=== PATIENT | female | born 1975 | race Caucasian/White ===

== ENCOUNTER 2017-06-16 18:53 | Inpatient (IN) | payer MEDICARE, OTHER ==
[~2017-06-16] VITALS: Ht 149.9 cm; Wt 121.7 kg
[~2017-06-16 18:53] MED LIST: ADVA100A; ALBU17I; DILT60TA; GLIP5; NOVORP2; Z.0.BCPILL
[2017-06-16 19:30] VITALS: BP 106/56; PULSE 72; RESP 20; TEMP 97.2; O2SAT 98
--- NOTE | 2017-06-16 20:44 | PD ---
HPI Chief Complaint: Psychiatric Symptoms Time Seen by Provider: 20:35 Travel History International Travel<30 days: No Contact w/Intl Traveler<30days: No Traveled to known affect area: No History of Present Illness HPI This is a 42-year-old female resident of [facility], on 3 L nasal cannula at home. She presents under García act initiated by a psychiatrist. According to her paperwork the patient has a history of bipolar disorder, depression, anxiety, "during initial evaluation she states she hears voices that tell her to cut her wrists. She states multiple prior attempts and hospitalizations (inpatient psychiatry) she has planned, intent, and possible [place] means of sharp objects or sober." The patient admits that today she's been feeling increasingly suicidal and she has been having auditory hallucinations. Specifically she has thoughts of cutting her wrists. She denies any drug or alcohol use. She reports that she has been compliant with all medications. She has no medical complaints at this time. PFSH Past Medical History Asthma: Yes Anxiety: Yes Cardiovascular Problems: Yes (CHF) COPD: Yes Coronary Artery Disease: Yes Diabetes: Yes (type 2) Patient Takes Glucophage: No Diminished Hearing: No Hypertension: Yes Reproductive: Yes (POLY-CYSTIC OVARIAN DISEASE; NO PERIOD FOR MONTHS, ON BCPS) ?: Unknown Past Surgical History Eye Surgery: Yes (left eye surgery for lazy eye ) Tonsillectomy: Yes Social History Alcohol Use: No Tobacco Use: No Substance Use: No Allergies-Medications (Allergen,Severity, Reaction): Coded Allergies: meperidine (Unverified Allergy, Severe, 03/25/17) [place] [facility] Dust (Unverified Allergy, Intermediate, Sneezing, 06/16/17) NSAIDS (Non-Steroidal Anti-Inflamma (Unverified Adverse Reaction, Intermediate, Hives, 06/16/17) aspirin (Unverified Adverse Reaction, Intermediate, Hives, 06/16/17) ciprofloxacin (Unverified Adverse Reaction, Intermediate, Hives, 06/16/17) Reported Meds & Prescriptions Reported Meds & Active Scripts Active Reported Ziprasidone 80 Mg Cap 80 Mg PO BID Symbicort Inh (Budesonide/Formoterol Fumarate) 80-4.5 Mcg/Act Aero 2 Puff INH Q12HR Sucralfate 1 Gram Tab 1 Gm PO QID on empty stomach Rosuvastatin (Rosuvastatin Calcium) 5 Mg Tab 5 Mg PO HS Xarelto (Rivaroxaban) 20 Mg Tab 20 Mg PO DAILY Pepcid (Famotidine) 20 Mg Tab 20 Mg PO BID Paxil (Paroxetine HCl) 30 Mg Tab 40 Mg PO DAILY Nitroglycerin SL (Nitroglycerin) 0.4 Mg Subl 0.4 Mg SL DIRECTED PRN ONE TABLET UNDER THE TONGUE NEEDED FOR CHEST PAIN, MAY REPEAT EVERY FIVE MINUTES FOR A TOTAL OF 3 DOSES OR CALL 911 IF NO RELIEF Milk of Magnesia Liq (Magnesium Hydroxide) 400 Mg/5 Ml Susp 60 Ml PO DAILY PRN Metoprolol Tartrate 50 Mg Tab 50 Mg PO TID Lantus Inj (Insulin Glargine) 1,000 Unit/10 Ml Vial 10 Units SQ BID Klonopin (Clonazepam) 0.5 Mg Tab 0.5 Mg PO BID Hydrocodone-Acetaminophen 5-325 mg Tab 1 Tab PO Q4H PRN Ferrousul (Ferrous Sulfate) 325 Mg (65 Mg Iron) Tab Tab PO DAILY Enema Disposable (Sodium Phosphates) 19 Gram-7 Gram/118 Ml Rin Dulcolax Supp (Bisacodyl) 10 Mg Supp 10 Mg RECTAL DAILY PRN Bumetanide 1 Mg Tab 1 Mg PO DAILY Sm Womans Laxative (Bisacodyl) 5 Mg Tab 10 Mg PO Review of Systems Except as stated in HPI: all other systems reviewed are Neg Physical Exam Narrative GENERAL: This is an obese female who is in no acute distress. She appears older than her stated age. SKIN: Warm and dry. HEAD: Atraumatic. Normocephalic. EYES: Pupils equal and round. No scleral icterus. No injection or drainage. ENT: No nasal bleeding or discharge. Mucous membranes pink and moist. NECK: Trachea midline. No JVD. CARDIOVASCULAR: Regular rate and rhythm. No murmur appreciated. RESPIRATORY: No accessory muscle use. Clear to auscultation. Breath sounds equal bilaterally. GASTROINTESTINAL: Abdomen soft, non-tender, nondistended. Hepatic and splenic margins not palpable. MUSCULOSKELETAL: No obvious deformities. No clubbing. No cyanosis. No edema. NEUROLOGICAL: Awake and alert. No obvious cranial nerve deficits. Motor grossly within normal limits. Normal speech. PSYCHIATRIC: Flat affect. Insight and judgment appear limited. Data Data Last Documented VS Vital Signs Date Time Temp Pulse Resp B/P (MAP) Pulse Ox O2 Delivery O2 Flow Rate FiO2 06/17/17 07:33 107 06/17/17 07:33 19 139/76 (97) 97 Nasal Cannula 3.00 06/16/17 20:48 98.0 Orders Orders Complete Blood Count With Diff (06/16/17 20:40) Comprehensive Metabolic Panel (06/16/17 20:40) Psych Screen (06/16/17 20:40) Drug Screen, Random Urine (06/16/17 20:40) Alcohol (Ethanol) (06/16/17 20:40) Salicylates (Aspirin) (06/16/17 20:40) Tylenol (Acetaminophen) (06/16/17 20:40) Insulin Human Regular Inj (Novolin R Inj (06/16/17 22:45) Insulin Human Regular Inj (Novolin R Inj (06/16/17 23:00) Diet Regular Basic (06/17/17 Breakfast) Labs Laboratory Tests Test 06/16/17 21:15 06/16/17 23:30 White Blood Count 6.3 TH/MM3 Red Blood Count 3.87 MIL/MM3 Hemoglobin 12.6 GM/DL Hematocrit 37.3 % Mean Corpuscular Volume 96.3 FL Mean Corpuscular Hemoglobin 32.6 PG Mean Corpuscular Hemoglobin Concent 33.9 % Red Cell Distribution Width 13.9 % Platelet Count 233 TH/MM3 Mean Platelet Volume 7.0 FL Neutrophils (%) (Auto) 63.8 % Lymphocytes (%) (Auto) 27.3 % Monocytes (%) (Auto) 7.6 % Eosinophils (%) (Auto) 0.7 % Basophils (%) (Auto) 0.6 % Neutrophils # (Auto) 4.0 TH/MM3 Lymphocytes # (Auto) 1.7 TH/MM3 Monocytes # (Auto) 0.5 TH/MM3 Eosinophils # (Auto) 0.0 TH/MM3 Basophils # (Auto) 0.0 TH/MM3 CBC Comment DIFF FINAL Differential Comment Blood Urea Nitrogen 14 MG/DL Creatinine 0.85 MG/DL Random Glucose 319 MG/DL Total Protein 7.5 GM/DL Albumin 3.3 GM/DL Calcium Level 8.8 MG/DL Alkaline Phosphatase 124 U/L Aspartate Amino Transf (AST/SGOT) 25 U/L Alanine Aminotransferase (ALT/SGPT) 55 U/L Total Bilirubin 0.2 MG/DL Sodium Level 134 MEQ/L Potassium Level 3.8 MEQ/L Chloride Level 94 MEQ/L Carbon Dioxide Level 32.7 MEQ/L Anion Gap 7 MEQ/L Estimat Glomerular Filtration Rate 74 ML/MIN Salicylates Level LESS THAN 1.7 MG/DL Acetaminophen Level LESS THAN 2.0 MCG/ML Ethyl Alcohol Level LESS THAN 3 MG/DL Urine Opiates Screen NEG Urine Barbiturates Screen NEG Urine Amphetamines Screen NEG Urine Benzodiazepines Screen NEG Urine Cocaine Screen NEG Urine Cannabinoids Screen NEG MDM Medical Decision Making Medical Screen Exam Complete: Yes Emergency Medical Condition: Yes Medical Record Reviewed: Yes Differential Diagnosis Major depressive disorder, acute psychosis, schizoaffective disorder, schizophrenia, medication noncompliance Narrative Course 42-year-old female presents under García act initiated by a psychiatrist for evaluation of depression, suicidal ideation and auditory hallucination. Mental health screening discussed with the patient. Psychiatric screen ordered. Pending lab work, the patient will be medically cleared for psychiatric disposition. Diagnosis Primary Impression: Medical clearance for psychiatric admission Jean Rodriguez Jun 16, 2017 20:44
[2017-06-16 20:48] VITALS: BP 117/55; PULSE 73; RESP 18; TEMP 98; O2SAT 98
[2017-06-16 21:46] LABS: BASOPHIL % 0.6 % (0.0-2.0); EOSINOPHIL % 0.7 % (0.0-4.0); HEMATOCRIT 37.3 % (35.0-46.0); HEMO FLAGS DIFF FINAL; LYMPH % 27.3 % (9.0-44.0); LYMPHOCYTE # 1.7 TH/MM3 (1.0-4.8); MEAN CELL VOLUME 96.3 FL (80.0-100.0); MEAN CORPUSCULAR HEMOGLOBIN 32.6 PG (27.0-34.0); MEAN CORPUSCULAR HGB CONC 33.9 % (32.0-36.0); MONO % 7.6 % (0.0-8.0); NEUT % 63.8 % (16.0-70.0); PLATELET COUNT 233 TH/MM3 (150-450); RED BLOOD COUNT 3.87 MIL/MM3 (4.00-5.30); RED CELL DISTRIBUTION WIDTH 13.9 % (11.6-17.2); WHITE BLOOD COUNT 6.3 TH/MM3 (4.0-11.0)
[2017-06-16] MEDS ORDERED: ZIPR1CAP12 PO (22:04)
[2017-06-16] MEDS ORDERED: BUME1TAB PO (22:04)
[2017-06-16] MEDS ORDERED: DULC10SU3 RECTAL (22:04)
[2017-06-16] MEDS ORDERED: [UNRECOGNIZED DRUG - CODE] PO (22:04)
[2017-06-16] MEDS ORDERED: CLON.5 PO (22:04)
[2017-06-16] MEDS ORDERED: SUCR1TAB PO (22:04)
[2017-06-16] MEDS ORDERED: FAMO1TAB37 PO (22:04)
[2017-06-16] MEDS ORDERED: SYMB80AE INH (22:04)
[2017-06-16] MEDS ORDERED: METO50TA PO (22:04)
[2017-06-16] MEDS ORDERED: HYDR-3516 PO (22:04)
[2017-06-16] MEDS ORDERED: ROSU1TAB4 PO (22:04)
[2017-06-16] MEDS ORDERED: ENEMENE5 (22:04)
[2017-06-16] MEDS ORDERED: MILKSUS PO (22:04)
[2017-06-16] MEDS ORDERED: PAXI30TA7 PO (22:04)
[2017-06-16] MEDS ORDERED: FERR325T86 PO (22:04)
[2017-06-16] MEDS ORDERED: NITR1SUB3 SL (22:04)
[2017-06-16] MEDS ORDERED: LANTUS2P SQ (22:04)
[2017-06-16] MEDS ORDERED: XARE20TA PO (22:04)
[2017-06-16 22:17] LABS: ALCOHOL LESS THAN 3 MG/DL (0-5); ALT (GPT) 55 U/L (10-53); ANION GAP 7 MEQ/L (5-15); AST (GOT) 25 U/L (15-37); BICARBONATE 32.7 MEQ/L (21.0-32.0); BLOOD UREA NITROGEN 14 MG/DL (7-18); CHLORIDE 94 MEQ/L (98-107); GLOMERULAR FILTRATION RATE 74 ML/MIN (>89); POTASSIUM 3.8 MEQ/L (3.5-5.1); SODIUM (NA) 134 MEQ/L (136-145)
[2017-06-16 22:18] LABS: ALKALINE PHOSPHATASE 124 U/L (45-117); TOTAL BILIRUBIN ADULT 0.2 MG/DL (0.2-1.0)
[2017-06-16 22:23] LABS: ACETAMINOPHEN LESS THAN 2.0 MCG/ML (10.0-30.0)
[2017-06-16] MEDS ORDERED: INSULIN HUMAN REGULAR 1,000 UNITS/10 ML VIAL IV PUSH ONE (22:45)
[2017-06-16] MEDS ORDERED: INSULIN HUMAN REGULAR 1,000 UNITS/10 ML VIAL SQ ONE (23:00)
[2017-06-16 23:48] VITALS: BP 128/63; PULSE 79; RESP 18; O2SAT 96
[2017-06-17 04:58] VITALS: BP 107/53; PULSE 71; RESP 16; O2SAT 98
[2017-06-17 07:33] VITALS: BP 139/76; PULSE 107; RESP 19; O2SAT 97
[2017-06-17] MEDS ORDERED: LIDOCAINE VISCOUS 2% SOLN 15 ML UDC PO ONE (12:00)
[2017-06-17] MEDS ORDERED: ALUMINUM/MAGNESIUM/SIMETH 30 ML CUP PO ONE (12:00)
[2017-06-17] MEDS ORDERED: diphenhydrAMINE HCL 50 MG CAP PO PRN (15:00)
[2017-06-17] MEDS ORDERED: LORazepam 2 MG/ML VIAL IM PRN (15:00)
[2017-06-17] MEDS ORDERED: ALUMINUM/MAGNESIUM/SIMETH 30 ML CUP PO PRN (15:00)
[2017-06-17] MEDS ORDERED: MAGNESIUM HYDROXIDE SUSP 30 ML CUP PO PRN ×2 (15:00)
[2017-06-17] MEDS ORDERED: BISACODYL 10 MG SUPP RECTAL PRN (15:00)
[2017-06-17] MEDS ORDERED: diphenhydrAMINE HCL 50 MG/ML VIAL IM PRN (15:00)
--- NOTE | 2017-06-17 15:14 | HHI.HP ---
Provisional Diagnosis Admission Date Jun 17, 2017 at 14:56 [place]. Adjustment disorder with depressed mood Certification of Person's Competence To Provide Express and Informed Consent I have personally examined Johanna Bullock , a person being served at [facility] on, Jun 17, 2017 15:05. Express and informed consent means consent voluntarily given in writing, by a competent person, after sufficient explanation and disclosure of the subject matter involved to enable the person to make a knowing and willful decision without any element of force, fraud, deceit, duress, or other form of constraint or coercion. This person is 18 years of age or older, is not now known to be incompetent to consent to treatment with a guardian advocate, and does not have a health care surrogate or proxy currently making medical treatment decisions. I have found this person to be one of the following: [X] Competent to provide express and informed consent, as defined above, for voluntary admission to this facility and is competent to provide express and informed consent for treatment. He/she has the consistent capacity to make well reasoned, willful, and knowing decisions concerning his or her medical or mental health treatment. The person fully and consistently understands the purpose of the admission for examination/placement and is fully capable of personally exercising all rights [place] Incompetent to provide express and informed consent to voluntary admission, and this is incompetent to provide express and informed consent to treatment. The person must be transferred to involuntary status and a petition for a guardian advocate filed with the Circuit Court. [] Refusing to provide express and informed consent to voluntary admission but is competent to provide express and informed consent for treatment. The person must be discharged or transferred to involuntary status. Form shall be completed within 24 hours of a person's arrival at the receiving facility and filed in the clinical record of each person: 1. Admitted on a voluntary basis 2. Permitted to provide express and informed consent to his/her own treatment 3. Allowed to transfer from involuntary to voluntary status 4. Prior to permitting a person to consent to his or her own treatment after having been previously found incompetent to consent to treatment. History of Present Illness Capacity: Has Capacity HPI This is a 42-year-old female brought in under a García act for suicidal ideation and behavior. Apparently she is a resident at [facility], an assisted living facility. She appears to be institutionalized, a on her manner and dress. She is also wearing a nasal cannula and receives 3 L of oxygen per minute. The psychiatrist that attends to this [facility] García acted the patient. She reportedly has a history of bipolar disorder, depression and anxiety. She told the psychiatrist and staff members here at [facility] that she is hearing voices telling her to cut her wrists. She indicated the same information to this physician. She has a history of multiple prior attempts to harm herself and has been hospitalized on multiple occasions. She admits to increasing symptoms of depression, including depressed mood, anhedonia, feeling hopeless and helpless not, decreased self-esteem, social withdrawal, sleep disturbance, and suicidal ideation with plan. In fact, she states she is experiencing command auditory hallucinations telling her to kill herself. Review of Systems ROS Limitations: Clinical Condition Psychiatric: COMPLAINS OF: Depression Except as stated in HPI: all other systems reviewed are Neg Past Psych History Psychological trauma history Unknown psychological trauma but the patient has been admitted multiple times for psychiatric reasons. Violence risk - others (6 mos) Minimal to moderate Violence risk - self (6 mos) High Substance Abuse History Drugs/Alcohol past 12 months Denied toxicology screen negative. Past Family Social History Coded Allergies: meperidine (Unverified Allergy, Severe, 03/25/17) [place] [facility] Dust (Unverified Allergy, Intermediate, Sneezing, 06/16/17) NSAIDS (Non-Steroidal Anti-Inflamma (Unverified Adverse Reaction, Intermediate, Hives, 06/16/17) aspirin (Unverified Adverse Reaction, Intermediate, Hives, 06/16/17) ciprofloxacin (Unverified Adverse Reaction, Intermediate, Hives, 06/16/17) Reported Medications Ziprasidone (Ziprasidone) 80 Mg Cap, 80 MG PO BID, #60 CAP 0 Refills 06/16/17 Budesonide-Formoterol Inh (Symbicort Inh) 80-4.5 Mcg/Act Aero, 2 PUFF INH Q12HR for Asthma Management, #1 INHALER 0 Refills 06/16/17 Sucralfate (Sucralfate) 1 Gram Tab, 1 GM PO QID for Duodenal ulcer, #120 TAB 0 Refills on empty stomach 06/16/17 Rosuvastatin (Rosuvastatin) 5 Mg Tab, 5 MG PO HS for Cholesterol Management, # 30 TAB 0 Refills 06/16/17 Rivaroxaban (Xarelto) 20 Mg Tab, 20 MG PO DAILY for Blood Clot Prevention, TAB 0 Refills 06/16/17 Famotidine (Pepcid) 20 Mg Tab, 20 MG PO BID, #60 TAB 0 Refills 06/16/17 Paroxetine (Paxil) 30 Mg Tab, 40 MG PO DAILY, #30 TAB 0 Refills 06/16/17 Nitroglycerin SL (Nitroglycerin SL) 0.4 Mg Subl, 0.4 MG SL DIRECTED Y for CHEST PAIN, #100 TAB.SL 0 Refills ONE TABLET UNDER THE TONGUE NEEDED FOR CHEST PAIN, MAY REPEAT EVERY FIVE MINUTES FOR A TOTAL OF 3 DOSES OR CALL 911 IF NO RELIEF 06/16/17 Magnesium Hydroxide Liq (Milk of Magnesia Liq) 400 Mg/5 Ml Susp, 60 ML PO DAILY Y for INDIGESTION OR UPSET STOMACH, #1 BOTTLE 0 Refills 06/16/17 Metoprolol Tartrate (Metoprolol Tartrate) 50 Mg Tab, 50 MG PO TID, #30 TAB 0 Refills 06/16/17 Insulin Glargine Inj (Lantus Inj) 1,000 Unit/10 Ml Vial, 10 UNITS SQ BID for Blood Sugar Management, VIAL 0 Refills 06/16/17 Clonazepam (Klonopin) 0.5 Mg Tab, 0.5 MG PO BID, #60 TAB 0 Refills 06/16/17 Hydrocodone-Acetaminophen (Hydrocodone-Acetaminophen) 5-325 mg Tab, 1 TAB PO Q4H Y for PAIN, TAB 0 Refills 06/16/17 Ferrous Sulfate (Ferrousul) 325 Mg (65 Mg Iron) Tab, TAB PO DAILY 06/16/17 Sodium Phosphates (Enema Disposable) 19 Gram-7 Gram/118 Ml Rin 06/16/17 Bisacodyl Supp (Dulcolax Supp) 10 Mg Supp, 10 MG RECTAL DAILY Y for CONSTIPATION , #12 SUPP 0 Refills 06/16/17 Bumetanide (Bumetanide) 1 Mg Tab, 1 MG PO DAILY, #30 TAB 0 Refills 06/16/17 Bisacodyl (Sm Womans Laxative) 5 Mg Tab, 10 MG PO 06/16/17 Current Medications Medications (Trade) Dose Ordered Sig/Eliz Route Start Time Stop Time Status Last Admin (Ativan) 1 mg Q6H PRN PO 06/17/17 15:00 UNV (Ativan Inj) 1 mg Q6H PRN IM 06/17/17 15:00 UNV (Benadryl) 50 mg Q6H PRN PO 06/17/17 15:00 (Benadryl Inj) 50 mg Q6H PRN IM 06/17/17 15:00 (Tylenol) 650 mg Q4H PRN PO 06/17/17 15:00 (Mag-Al Plus Susp Liq) 30 ml Q6H PRN PO 06/17/17 15:00 (Dulcolax Supp) 10 mg DAILY PRN RECTAL 06/17/17 15:00 UNV (Symbicort 80-4.5 Mcg Inh) 2 puff Q12HR INH 06/17/17 21:00 (Bumetanide) 1 mg DAILY PO 06/18/17 09:00 UNV (KlonoPIN) 0.5 mg BID PO 06/17/17 21:00 UNV (Pepcid) 20 mg BID PO 06/17/17 21:00 (Cardale 5-325 Mg) 1 tab Q4H PRN PO 06/17/17 15:00 UNV (Lantus Inj) 10 units BID SQ 06/17/17 21:00 UNV (Milk Of Magnesia Liq) 60 ml DAILY PRN PO 06/17/17 15:00 UNV (Lopressor) 50 mg TID PO 06/17/17 18:00 UNV (Xarelto) 20 mg DAILY PO 06/18/17 09:00 UNV (Carafate) 1 gm QID PO 06/17/17 18:00 (Geodon) 80 mg BID PO 06/17/17 21:00 UNV Family Psych History Patient does not know family psychiatric history. Social History Patient unemployed and receives Social Security disability. Has COPD and uses a nasal cannula. Has resided in a adult living facility for years. Patient's Strengths (min. 2) Verbal and has access to healthcare. Physical Exam GENERAL: SKIN: Warm and dry. HEAD: Normocephalic. EYES: No scleral icterus. No injection or drainage. NECK: Supple, trachea midline. No JVD or lymphadenopathy. CARDIOVASCULAR: Regular rate and rhythm without murmurs, gallops, or rubs. RESPIRATORY: Breath sounds equal bilaterally. No accessory muscle use. GASTROINTESTINAL: Abdomen soft, non-tender, nondistended. MUSCULOSKELETAL: No cyanosis, or edema. BACK: Nontender without obvious deformity. No CVA tenderness. Vital Signs Vital Signs Date Time Temp Pulse Resp B/P (MAP) Pulse Ox O2 Delivery O2 Flow Rate FiO2 06/17/17 07:33 107 06/17/17 07:33 19 139/76 (97) 97 Nasal Cannula 3.00 06/16/17 20:48 98.0 Lab Results Test 06/16/17 21:15 06/16/17 23:30 White Blood Count 6.3 TH/MM3 Red Blood Count 3.87 MIL/MM3 Hemoglobin 12.6 GM/DL Hematocrit 37.3 % Mean Corpuscular Volume 96.3 FL Mean Corpuscular Hemoglobin 32.6 PG Mean Corpuscular Hemoglobin Concent 33.9 % Red Cell Distribution Width 13.9 % Platelet Count 233 TH/MM3 Mean Platelet Volume 7.0 FL Neutrophils (%) (Auto) 63.8 % Lymphocytes (%) (Auto) 27.3 % Monocytes (%) (Auto) 7.6 % Eosinophils (%) (Auto) 0.7 % Basophils (%) (Auto) 0.6 % Neutrophils # (Auto) 4.0 TH/MM3 Lymphocytes # (Auto) 1.7 TH/MM3 Monocytes # (Auto) 0.5 TH/MM3 Eosinophils # (Auto) 0.0 TH/MM3 Basophils # (Auto) 0.0 TH/MM3 CBC Comment DIFF FINAL Differential Comment Blood Urea Nitrogen 14 MG/DL Creatinine 0.85 MG/DL Random Glucose 319 MG/DL Total Protein 7.5 GM/DL Albumin 3.3 GM/DL Calcium Level 8.8 MG/DL Alkaline Phosphatase 124 U/L Aspartate Amino Transf (AST/SGOT) 25 U/L Alanine Aminotransferase (ALT/SGPT) 55 U/L Total Bilirubin 0.2 MG/DL Sodium Level 134 MEQ/L Potassium Level 3.8 MEQ/L Chloride Level 94 MEQ/L Carbon Dioxide Level 32.7 MEQ/L Anion Gap 7 MEQ/L Estimat Glomerular Filtration Rate 74 ML/MIN Salicylates Level LESS THAN 1.7 MG/DL Acetaminophen Level LESS THAN 2.0 MCG/ML Ethyl Alcohol Level LESS THAN 3 MG/DL Urine Opiates Screen NEG Urine Barbiturates Screen NEG Urine Amphetamines Screen NEG Urine Benzodiazepines Screen NEG Urine Cocaine Screen NEG Urine Cannabinoids Screen NEG Mental Status Examination Appearance: Appropriate Consciousness: Alert Orientation: x4 Motor Activity: Normal gait Speech: Unremarkable Language: Adequate Fund of Knowledge: Adequate Attention and Concentration: Adequate Memory: Unremarkable Mood: Sad, Anxious Affect: Sad, Anxious Thought Process & Associations: Intact Thought Content: Hallucinations Hallucination Type: None Delusion Type: None Suicidal Ideation: Yes Suicidal Plan: Yes Suicidal Intention: Yes Homicidal Ideation: No Homicidal Plan: No Homicidal Intention: No Insight: Fair Judgment: Impulsive Assessment & Plan Problem List: (1) Adjustment disorder with depressed mood ICD Codes: F43.21 - Adjustment disorder with depressed mood Assessment & Plan Estimated LOS: days. 42-year-old female being admitted under a García act for auditory hallucinations of a command nature, telling her to cut her wrists. This physician is uncertain as to whether the patient is truly experiencing auditory hallucinations, but she is consistent about hearing them and that she will harm herself. She also has a history of multiple suicide attempts previously and she is felt to be at high risk for self-harm. This physician has ordered a CBC and comprehensive metabolic panel to determine if the patient has an infectious process or metabolic process that is causing or contributing to her depression and reported psychosis. Also ordered are a TSH level, vitamin B-12 level and vitamin D level, to determine if deficiencies in these areas are causing or contributing to her depression. This physician has asked for a hospitalist consult as the patient has numerous problems including COPD. This physician is checking the patient's hemoglobin A1c as she is rather obese. For the same reason, we are checking her lipid profile. This physician has ordered an EKG to determine the patient's cardiac conduction status prior to changing psychotropic medicines which may aggravate her weight condition or cardiac conduction system. This physician spoke with the patient' s nurse regarding her recent behavior. Finally, case management will be involved to assist with information gathering and disposition planning. Willie Gil MD Jun 17, 2017 15:14
[2017-06-17 15:17] VITALS: BP 180/87; PULSE 87; RESP 18; O2SAT 97
[2017-06-17 16:17] VITALS: BP 156/70; PULSE 90; RESP 17; TEMP 98.6; O2SAT 96
[2017-06-17] MEDS: METOPROLOL TARTRATE 50 MG TAB PO SCH (16:21)
[2017-06-17] MEDS: ACETAMINOPHEN 325 MG TAB PO PRN (16:21)
[2017-06-17] MEDS: SUCRALFATE 1 GM TAB PO SCH ×2 (18:43→21:24)
[2017-06-17] MEDS: ZIPRASIDONE HCL 80 MG CAP PO SCH (20:48)
[2017-06-17] MEDS: clonazePAM 0.5 MG TAB PO SCH (20:48)
[2017-06-17] MEDS: FAMOTIDINE 20 MG TAB PO SCH (20:48)
[2017-06-17] MEDS: INSULIN DETEMIR 100 UNITS/ML VIAL SQ SCH (21:23)
[2017-06-17] MEDS: BUDESONIDE-FORMOTEROL 80/4.5 MCG INHALER INH SCH (21:25)
[2017-06-17 22:44] VITALS: BP 156/70; PULSE 90; RESP 17; TEMP 98.6; O2SAT 96
[2017-06-18 05:43] VITALS: BP 120/56; PULSE 75; RESP 16; TEMP 97.2; O2SAT 96
[2017-06-18] MEDS: METOPROLOL TARTRATE 50 MG TAB PO SCH ×3 (08:03→17:40)
[2017-06-18] MEDS: SUCRALFATE 1 GM TAB PO SCH ×4 (08:03→21:05)
[2017-06-18] MEDS: FAMOTIDINE 20 MG TAB PO SCH ×2 (08:03→21:05)
[2017-06-18] MEDS: BUMETANIDE 1 MG TAB PO SCH (08:03)
[2017-06-18] MEDS: clonazePAM 0.5 MG TAB PO SCH ×2 (08:04→21:05)
[2017-06-18] MEDS: INSULIN DETEMIR 100 UNITS/ML VIAL SQ SCH ×2 (08:04→21:00)
[2017-06-18] MEDS: RIVAROXABAN 20 MG TAB PO SCH (08:04)
[2017-06-18] MEDS: ZIPRASIDONE HCL 80 MG CAP PO SCH (08:04)
[2017-06-18] MEDS: BUDESONIDE-FORMOTEROL 80/4.5 MCG INHALER INH SCH ×2 (08:04→21:05)
--- NOTE | 2017-06-18 09:28 | EKG ---
Date Performed: 06/18/2017 Time Performed: 07:27:24 PTAGE: 42 years EKG: Sinus rhythm NONSPECIFIC ST & T-WAVE ABNORMALITY BORDERLINE ECG NO PREVIOUS TRACING DOCTOR: Sukhwinder Coker Interpretating Date/Time 06/18/2017 09:26:53
[2017-06-18] MEDS: ACETAMINOPHEN 325 MG TAB PO PRN ×2 (09:29→19:35)
--- NOTE | 2017-06-18 12:32 | PD.TTN ---
Patient Problems 1. Discharge planning 2. Medication compliance 3. Knowledge deficit 4. Lack of coping skills Progress Toward Goals Provider Present: Dr. Marvin Montelongo Provider Input: Patient is a new admission, after assessment a treatment plan and medication needs will be schedule/and adjustments made Nurse(s) Present: Nadir Garay RN Nurse(s) Input: Patient is eating meals, medication will be discuss with treating doctor, patient is making suicidal ideation Psychiatric Counselors Present: SCOT Calvillo Psych Therapist Input: Treatment plan will be developed with patient, patient will be encouraged with mood and group participation Group Spec/RT/OT/ARIAS Present: JUANA Boateng Group Spec/RT/OT/ARIAS Input: Kofi is new activies will be review with patient Documentation Scribe: SCOT Calvillo Sandra LMHC Jun 18, 2017 12:32
[2017-06-18 15:03] LABS: AUTOMATED NEUTROPHIL # 4.7 TH/MM3 (1.8-7.7); BASOPHIL % 0.3 % (0.0-2.0); EOSINOPHIL % 0.6 % (0.0-4.0); HEMATOCRIT 37.8 % (35.0-46.0); HEMO FLAGS DIFF FINAL; LYMPH % 20.6 % (9.0-44.0); LYMPHOCYTE # 1.4 TH/MM3 (1.0-4.8); MEAN CELL VOLUME 96.3 FL (80.0-100.0); MEAN CORPUSCULAR HEMOGLOBIN 31.9 PG (27.0-34.0); MEAN CORPUSCULAR HGB CONC 33.1 % (32.0-36.0); MONO % 6.4 % (0.0-8.0); NEUT % 72.1 % (16.0-70.0); PLATELET COUNT 217 TH/MM3 (150-450); RED BLOOD COUNT 3.92 MIL/MM3 (4.00-5.30); RED CELL DISTRIBUTION WIDTH 14.4 % (11.6-17.2); WHITE BLOOD COUNT 6.6 TH/MM3 (4.0-11.0)
[2017-06-18 15:22] LABS: ANION GAP 6 MEQ/L (5-15); AST (GOT) 39 U/L (15-37); BICARBONATE 34.5 MEQ/L (21.0-32.0); BLOOD UREA NITROGEN 12 MG/DL (7-18); CHLORIDE 96 MEQ/L (98-107); GLOMERULAR FILTRATION RATE 63 ML/MIN (>89); SODIUM (NA) 136 MEQ/L (136-145)
[2017-06-18] MEDS ORDERED: GLUCAGON 1 MG/ML VIAL OTHER PRN (15:45)
[2017-06-18] MEDS ORDERED: DEXTROSE 50% IN WATER 50 ML SYRINGE IV PUSH PRN (15:45)
[2017-06-18 15:48] LABS: ALKALINE PHOSPHATASE 100 U/L (45-117); ALT (GPT) 66 U/L (10-53); LDL CHOLESTEROL 70 MG/DL (0-99); TOTAL BILIRUBIN ADULT 0.3 MG/DL (0.2-1.0)
[2017-06-18] MEDS ORDERED: ENALAPRILAT 1.25 MG/ML VIAL IV PUSH PRN (16:15)
[2017-06-18] MEDS ORDERED: cloNIDine HCL 0.1 MG TAB PO PRN (16:15)
[2017-06-18] MEDS ORDERED: RESP: ALBUTEROL 2.5 MG/IPRATROPIUM 0.5 MG NEB (PRN) NEB (16:15)
--- NOTE | 2017-06-18 16:23 | PD.CONS ---
HPI Service [facility] Hospitalists Consult Requested By Dr. Gil Reason for Consult medical management Primary Care Physician Unknown Diagnoses: History of Present Illness Pt is a 42yr old female w PMHx of CHF, COPD on home oxygen, HTN, DM, admitted in the med/psych unit for suicidal ideation. Pt states that she has been has been having auditory hallucination telling her to hurt herself for the past few days. She states that her plan is to cut her wrist. Pt tells me that she is having abdominal pain 04/20, diffuse, had last BM today and it was normal, no diarrhea, no nausea or vomiting, she doesn't feel hungry, she continues to hear voices. She denies any burning w urination or increase in urinary frequency Hospitalist service consulted for medical management Review of Systems Except as stated in HPI: all other systems reviewed are Neg Past Family Social History Allergies: Coded Allergies: meperidine (Unverified Allergy, Severe, 03/25/17) Sarai House Dust (Unverified Allergy, Intermediate, Sneezing, 06/16/17) NSAIDS (Non-Steroidal Anti-Inflamma (Unverified Adverse Reaction, Intermediate, Hives, 06/16/17) aspirin (Unverified Adverse Reaction, Intermediate, Hives, 06/16/17) ciprofloxacin (Unverified Adverse Reaction, Intermediate, Hives, 06/16/17) Past Medical History CHF, COPD on home oxygen, HTN, DM, Past Surgical History tonsillectomy Reported Medications Reported Meds & Active Scripts Active Reported Ziprasidone 80 Mg Cap 80 Mg PO BID Symbicort Inh (Budesonide/Formoterol Fumarate) 80-4.5 Mcg/Act Aero 2 Puff INH Q12HR Sucralfate 1 Gram Tab 1 Gm PO QID on empty stomach Rosuvastatin (Rosuvastatin Calcium) 5 Mg Tab 5 Mg PO HS Xarelto (Rivaroxaban) 20 Mg Tab 20 Mg PO DAILY Pepcid (Famotidine) 20 Mg Tab 20 Mg PO BID Paxil (Paroxetine HCl) 30 Mg Tab 40 Mg PO DAILY Nitroglycerin SL (Nitroglycerin) 0.4 Mg Subl 0.4 Mg SL DIRECTED PRN ONE TABLET UNDER THE TONGUE NEEDED FOR CHEST PAIN, MAY REPEAT EVERY FIVE MINUTES FOR A TOTAL OF 3 DOSES OR CALL 911 IF NO RELIEF Milk of Magnesia Liq (Magnesium Hydroxide) 400 Mg/5 Ml Susp 60 Ml PO DAILY PRN Metoprolol Tartrate 50 Mg Tab 50 Mg PO TID Lantus Inj (Insulin Glargine) 1,000 Unit/10 Ml Vial 10 Units SQ BID Klonopin (Clonazepam) 0.5 Mg Tab 0.5 Mg PO BID Hydrocodone-Acetaminophen 5-325 mg Tab 1 Tab PO Q4H PRN Ferrousul (Ferrous Sulfate) 325 Mg (65 Mg Iron) Tab Tab PO DAILY Enema Disposable (Sodium Phosphates) 19 Gram-7 Gram/118 Ml Rin Dulcolax Supp (Bisacodyl) 10 Mg Supp 10 Mg RECTAL DAILY PRN Bumetanide 1 Mg Tab 1 Mg PO DAILY Sm Womans Laxative (Bisacodyl) 5 Mg Tab 10 Mg PO Family History mother from breast cancer father- she doesn't know him Social History denies any smoking hx, alcohol use or illegal drug use Physical Exam Vital Signs Vital Signs Date Time Temp Pulse Resp B/P (MAP) Pulse Ox O2 Delivery O2 Flow Rate FiO2 06/18/17 05:43 97.2 75 16 120/56 (77) 96 06/17/17 22:44 98.6 90 17 156/70 (98) 96 06/17/17 16:17 98.6 90 17 156/70 (98) 96 Physical Exam GENERAL: This is an obese pt, somewhat unkept. Appears comfortable when I walk in SKIN: No rashes, ecchymoses or lesions. Cool and dry. HEAD: Atraumatic. Normocephalic. No temporal or scalp tenderness. EYES: Pupils equal round and reactive. Extraocular motions intact. ENT: Nose without drainage. Airway patent. NECK: Trachea midline. No JVD or lymphadenopathy. Supple, nontender, no meningeal signs. CARDIOVASCULAR: Regular rate and rhythm without murmurs RESPIRATORY: Clear to auscultation. Breath sounds equal bilaterally. No wheezes GASTROINTESTINAL: Abdomen soft, very uncomfortable w deep palpation seems to be more pronounced in the RUQ area and epigastric area, obese. difficult to examine due to body habitus MUSCULOSKELETAL: Extremities without edema. No joint tenderness, effusion, or edema noted. No calf tenderness. Negative Homans sign bilaterally. NEUROLOGICAL: Awake and alert. Cranial nerves II through XII appear grossly intact. moves extremities. Normal speech. Laboratory Laboratory Tests Test 06/18/17 14:20 White Blood Count 6.6 Red Blood Count 3.92 Hemoglobin 12.5 Hematocrit 37.8 Mean Corpuscular Volume 96.3 Mean Corpuscular Hemoglobin 31.9 Mean Corpuscular Hemoglobin Concent 33.1 Red Cell Distribution Width 14.4 Platelet Count 217 Mean Platelet Volume 6.9 Neutrophils (%) (Auto) 72.1 Lymphocytes (%) (Auto) 20.6 Monocytes (%) (Auto) 6.4 Eosinophils (%) (Auto) 0.6 Basophils (%) (Auto) 0.3 Neutrophils # (Auto) 4.7 Lymphocytes # (Auto) 1.4 Monocytes # (Auto) 0.4 Eosinophils # (Auto) 0.0 Basophils # (Auto) 0.0 CBC Comment DIFF FINAL Differential Comment Blood Urea Nitrogen 12 Creatinine 0.98 Random Glucose 235 Total Protein 7.1 Albumin 3.3 Calcium Level 8.9 Alkaline Phosphatase 100 Aspartate Amino Transf (AST/SGOT) 39 Alanine Aminotransferase (ALT/SGPT) 66 Total Bilirubin 0.3 Sodium Level 136 Potassium Level 4.0 Chloride Level 96 Carbon Dioxide Level 34.5 Anion Gap 6 Estimat Glomerular Filtration Rate 63 Triglycerides Level 396 Cholesterol Level 191 LDL Cholesterol 70 HDL Cholesterol 42.0 Cholesterol/HDL Ratio 4.54 Vitamin B12 Level 343 Thyroid Stimulating Hormone 3rd Gen 0.417 Result Diagram: 06/18/17 14206/18/17 142 Assessment and Plan Assessment and Plan Suicidal ideation: with a plan. Management per psychiatry Abdominal pain: pt complains of abdominal pain of 9/10 although when I came in pt was sleeping and appeared comfortable. she complains of pain w deep palpation diffusely although she only really grimaces w palpation in the RUQ/ epigastric area. check lipase level, u/s gallbladder, KUB. I do note some mild elevation of LFTs. hold statin. monitor LFTs. Pt is morbidly obese. check hepatitis panel. norco prn pain. TGs at 396 CHF: heart healthy diet, fluid restriction 1500ml/day. BB and bumex resumed. monitor K levels COPD: stable, on home oxygen. Duoneb prn. home meds resumed HTN: stable. on home meds. added vasotec IV and clonidine prn for BP's >160/90. I have added lisinopril 5mg po daily for assistance w BP control and kidney protection as pt is DM and not on any Mike-inh DM: on levemir. Added low dose sliding scale and monitor BS. Adjust levemir dose. Thank you for allowing me to take part of Mrs. Bullock's care, will continue to follow Discussed Condition With patient and RN Louisa Vogt MD Jun 18, 2017 16:23
[2017-06-18] MEDS: INSULIN ASPART SUPPLEMENTAL SCALE SQ SCH ×2 (16:45→21:00)
--- NOTE | 2017-06-18 17:12 | HHI.PYPN ---
Subjective Remarks Patient seen for follow-up, chart reviewed. Patient is a 42 y/o woman , single, unemployed on SSI, domiciled at [facility], with a past psychiatric history of schizoaffective disorder with multiple psychiatric admissions, multiple suicide attempts as per patient, who was brought under Garc[place] Act for suicidal ideation with plan and intent to cut her wrists as well as auditory hallucinations command type to cut her wrists which she was transferred to the inpatient psychiatry unit for further evaluation and management. Patient was found lying on hospital chair eating lunch, noted to be guarded and superficially cooperative with interview. Patient states that she has been having SI for the past few days which she has been contemplating cutting her wrists and states having tried to with a butterknife several times. She states, "it didn't work" which she mentions having told staff and was subsequently sent her to the hospital. She states that she was "hearing things and wanted to hurt myself". She states that she has been having command auditory hallucinations to hurt her self for the past few days. Currently she states that continues to have AH to hurt herself and is unable to contract for safety at this time. She reports her mood as being "upsetting" due to "stress" but was unable to elaborate what those stresses are. She reports decreased sleep lately, no change in energy, appetite, or concentration. She continues to endorse suicidal ideation, auditory hallucinations, and paranoid delusions but denies homicidal ideation or visual hallucinations. Past psychiatric history: prior diagnosis or bipolar disorder, schizophrenia as per patient, multiple prior psychiatric admissions (last being a few months ago) , multiple suicide attempts via cutting as per patient but states that she had only thoughts of cutting but that "someone stopped me". She reports follow up by psychiatrist through her residence with recent medication regimen to include ziprasidone 80mg PO BID and states that this has not been helpful for the past month. Review of Systems Except as stated in HPI: all other systems reviewed are Neg Mental Status Examination Appearance: Appropriate Consciousness: Alert Orientation: x4 Motor Activity: Normal gait Speech: Unremarkable Language: Adequate Fund of Knowledge: Adequate Attention and Concentration: Adequate Memory: Unremarkable Mood: Sad, Anxious, Other ("upset") Affect: Other (restricted) Thought Process & Associations: Intact, Linear Thought Content: Hallucinations Hallucination Type: None (commanding her to cut her wrists), Auditory Delusion Type: None Suicidal Ideation: Yes Suicidal Plan: Yes Suicidal Intention: Yes Homicidal Ideation: No Homicidal Plan: No Homicidal Intention: No Insight: Fair Judgment: Impulsive Mental Status Exam Remarks poor historian Results Labs labs reviewed Test 06/18/17 14:20 White Blood Count 6.6 TH/MM3 Red Blood Count 3.92 MIL/MM3 Hemoglobin 12.5 GM/DL Hematocrit 37.8 % Mean Corpuscular Volume 96.3 FL Mean Corpuscular Hemoglobin 31.9 PG Mean Corpuscular Hemoglobin Concent 33.1 % Red Cell Distribution Width 14.4 % Platelet Count 217 TH/MM3 Mean Platelet Volume 6.9 FL Neutrophils (%) (Auto) 72.1 % Lymphocytes (%) (Auto) 20.6 % Monocytes (%) (Auto) 6.4 % Eosinophils (%) (Auto) 0.6 % Basophils (%) (Auto) 0.3 % Neutrophils # (Auto) 4.7 TH/MM3 Lymphocytes # (Auto) 1.4 TH/MM3 Monocytes # (Auto) 0.4 TH/MM3 Eosinophils # (Auto) 0.0 TH/MM3 Basophils # (Auto) 0.0 TH/MM3 CBC Comment DIFF FINAL Differential Comment Blood Urea Nitrogen 12 MG/DL Creatinine 0.98 MG/DL Random Glucose 235 MG/DL Total Protein 7.1 GM/DL Albumin 3.3 GM/DL Calcium Level 8.9 MG/DL Alkaline Phosphatase 100 U/L Aspartate Amino Transf (AST/SGOT) 39 U/L Alanine Aminotransferase (ALT/SGPT) 66 U/L Total Bilirubin 0.3 MG/DL Sodium Level 136 MEQ/L Potassium Level 4.0 MEQ/L Chloride Level 96 MEQ/L Carbon Dioxide Level 34.5 MEQ/L Anion Gap 6 MEQ/L Estimat Glomerular Filtration Rate 63 ML/MIN Triglycerides Level 396 MG/DL Cholesterol Level 191 MG/DL LDL Cholesterol 70 MG/DL HDL Cholesterol 42.0 MG/DL Cholesterol/HDL Ratio 4.54 RATIO Vitamin B12 Level 343 PG/ML Thyroid Stimulating Hormone 3rd Gen 0.417 uIU/ML Vitals/IOs Vital Signs Date Time Temp Pulse Resp B/P (MAP) Pulse Ox O2 Delivery O2 Flow Rate FiO2 06/18/17 05:43 97.2 75 16 120/56 (77) 96 06/17/17 15:17 Room Air 06/17/17 07:33 3.00 Intake and Output 06/18/17 06/18/17 06/19/17 08:00 16:00 00:00 Intake Total 120 ml 240 ml Balance 120 ml 240 ml Assessment & Plan Problem List: (1) Adjustment disorder with depressed mood ICD Codes: F43.21 - Adjustment disorder with depressed mood Assessment & Plan Patient is a 42 y/o woman who carries a diagnosis of schizoaffective disorder who was brought in under García Act for suicidal ideations and command auditory hallucinations to cut her wrists in the context of recent change to new [facility] one month ago. Patient endorses depressive symtpoms as well as paranoid delusions and auditory hallucinations command type which she will require inpatient stabilization as she has reports prior suicide attempts and is at elevated risk for self harm as she recently attempted to cut her wrists. Will cross taper ziprasidone with paliperidone for psychosis. Collateral information pending. Will place 1:1 observation for safety as patient unable to contract for safety. Discharge planning in progress. Justification for Cont. Inpt. At risk for further decompensation if at lower level of care. Discharge Planning Patient to return back to her residence once psychiatrically clear. Jah Montelongo MD Jun 18, 2017 17:12
[2017-06-18 18:00] VITALS: BP 112/53; PULSE 93; RESP 17; TEMP 97.6; O2SAT 95
--- NOTE | 2017-06-18 19:10 | RADRPT ---
EXAM DATE/TIME: 06/18/2017 16:33 [facility] COMPARISON: No previous studies available for comparison. INDICATIONS : Epigastric pain. MEDICAL HISTORY : Hypertension. Diabetes mellitus type II. Congestive heart failure. Cardiac disorders. Asthma. 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 Poly-cystic ovarian disease. SURGICAL HISTORY : None. ENCOUNTER: Initial ACUITY: 2 days PAIN SCORE: 6/10 LOCATION: Bilateral chest FINDINGS: 3 supine frontal views of the abdomen reveal a gas distended stomach. Gas filled loops of nondilated large and small bowel observed. Gas and stool seen to the level of the rectal vault. No gross pneumop eritoneum. No organomegaly. Renal contour is obscured. Lung bases clear. Bony structures are unremark able. CONCLUSION: 1. Gas distended stomach with an otherwise normal bowel gas pattern. Jose Rojas Jr., MD on June 18, 2017 at 19:06 Board Certified Radiologist. This report was verified electronically.
[2017-06-18 19:53] LABS: HEMOGLOBIN A1a 1.7 %; HEMOGLOBIN A1b 2.4 %; HEMOGLOBIN Ao 80.1 %; HEMOGLOBIN LA1C 2.7 %; HEMOGLOBIN P3 4.4 %
[2017-06-18 20:30] VITALS: BP 133/68; PULSE 74; RESP 16; O2SAT 98
[2017-06-18] MEDS: ACETAMINOPHEN/HYDROcodone 325 MG/5 MG TAB PO PRN (22:23)
[2017-06-18] MEDS: ZIPRASIDONE HCL 60 MG CAP PO SCH (22:32)
[2017-06-19 06:21] VITALS: BP 119/57; PULSE 73; RESP 16; TEMP 97.7; O2SAT 97
[2017-06-19] MEDS: BUMETANIDE 1 MG TAB PO SCH (08:53)
[2017-06-19] MEDS: clonazePAM 0.5 MG TAB PO SCH ×2 (08:53→20:27)
[2017-06-19] MEDS: RIVAROXABAN 20 MG TAB PO SCH (08:53)
[2017-06-19] MEDS: FAMOTIDINE 20 MG TAB PO SCH ×2 (08:54→20:27)
[2017-06-19] MEDS: LISINOPRIL 5 MG TAB PO SCH (08:54)
[2017-06-19] MEDS: SUCRALFATE 1 GM TAB PO SCH ×4 (08:54→20:34)
[2017-06-19] MEDS: METOPROLOL TARTRATE 50 MG TAB PO SCH ×3 (08:54→17:29)
[2017-06-19] MEDS: ZIPRASIDONE HCL 60 MG CAP PO SCH (08:54)
[2017-06-19] MEDS ORDERED: PALIPERIDONE ER 3 MG TAB PO SCH (09:00)
[2017-06-19] MEDS: BUDESONIDE-FORMOTEROL 80/4.5 MCG INHALER INH SCH ×2 (09:16→20:28)
[2017-06-19] MEDS: INSULIN ASPART SUPPLEMENTAL SCALE SQ SCH ×4 (09:17→20:28)
[2017-06-19] MEDS: INSULIN DETEMIR 100 UNITS/ML VIAL SQ SCH ×2 (09:17→20:28)
--- NOTE | 2017-06-19 09:59 | RADRPT ---
EXAM DATE/TIME: 06/19/2017 08:30 [facility] COMPARISON: No previous studies available for comparison. INDICATIONS : Increased lab values. MEDICAL HISTORY : Chronic obstructive pulmonary disease. Hypercholesterolemia. Hypertension. Seizures. Congestive heart failure. Coronary artery disease. Asthma. Diabetes. Bipolar disorder. Depression. Anxiety. Blood tra nsfusion. PCOS. SURGICAL HISTORY : Tonsillectomy. Left eye surgery. ENCOUNTER: Initial ACUITY: 2 days PAIN SCORE: 9/10 LOCATION: Right upper quadrant MEASUREMENTS: LIVER: 20.5 cm length COMMON DUCT: 5 mm RIGHT KIDNEY: 12.0 x 5.2 x 4.0 cm FINDINGS: LIVER: Mild diffuse increase in hepatic echogenicity consistent with steatosis. No focal mass or biliary ronnie sancho dilatation. COMMON DUCT: No intraluminal mass or stone visualized. GALLBLADDER: Mild dependent sludge. No definite mobile stones. No wall thickening or pericholecystic fluid. PANCREAS: Not visualized RIGHT KIDNEY: No evidence of hydronephrosis, stone, or mass. CONCLUSION: Likely hepatic steatosis. Mild gallbladder sludge Hesham Tomas MD on June 19, 2017 at 9:54 Board Certified Radiologist. This report was verified electronically.
--- NOTE | 2017-06-19 11:20 | HHI.PR ---
Subjective Remarks Follow-up for abdominal pain Abdominal pain resolved. Patient complaining of chest pain, left-sided, sharp, nonradiating, not associated with shortness of breath. Patient has attention seeking behavior as well. Does not appear to be in distress Objective Vitals Vital Signs Date Time Temp Pulse Resp B/P (MAP) Pulse Ox O2 Delivery O2 Flow Rate FiO2 06/19/17 06:21 97.7 73 16 119/57 (77) 97 06/18/17 23:22 14 06/18/17 20:45 16 06/18/17 20:30 74 16 133/68 (89) 98 06/18/17 18:00 97.6 93 17 112/53 (72) 95 I/O 06/18/17 06/18/17 06/18/17 06/19/17 06/19/17 06/19/17 07:00 15:00 23:00 07:00 15:00 23:00 Intake Total 0 ml 360 ml 1080 ml Balance 0 ml 360 ml 1080 ml Intake Oral 0 ml 360 ml 1080 ml # Voids 0 6 3 # Bowel Movements 1 0 Result Diagram: 06/18/17 1420 06/18/17 1420 Objective Remarks GENERAL: This is an obese pt, somewhat unkept. Flat affect. CARDIOVASCULAR: Regular rate and rhythm without murmurs RESPIRATORY: Clear to auscultation. Breath sounds equal bilaterally. No wheezes GASTROINTESTINAL: Abdomen soft, nontender at all. MUSCULOSKELETAL: No edema. NEUROLOGICAL: Awake and alert. Cranial nerves II through XII appear grossly intact. moves extremities. Normal speech. A/P Assessment and Plan This is a 42-year-old female with suicidal ideation, we were consulted for abdominal pain Suicidal ideation: with a plan. Management per psychiatry Abdominal pain: pt complains of abdominal pain of 9/10 although when I came in pt was sleeping and appeared comfortable. she complains of pain w deep palpation diffusely although she only really grimaces w palpation in the RUQ/ epigastric area. This has resolved. Workup is negative, lipase is normal, KUB negative, ultrasound showed hepatic steatosis and biliary sludge. Monitor for now. Chest pain-could be musculoskeletal versus psychiatric, check EKG and 2 sets of troponin. Will give one dose of aspirin, follow-up results. Doubt cardiac in nature. CHF: heart healthy diet, fluid restriction 1500ml/day. BB and bumex resumed. monitor K levels COPD: stable, on home oxygen. Duoneb prn. home meds resumed HTN: stable. on home meds. added vasotec IV and clonidine prn for BP's >160/90. Continue lisinopril. DM: on levemir. Decrease to 14 units twice a day. Mary Dillon MD Jun 19, 2017 11:20
[2017-06-19 13:12] LABS: ALT (GPT) 59 U/L (10-53); ANION GAP 5 MEQ/L (5-15); AST (GOT) 23 U/L (15-37); BICARBONATE 35.4 MEQ/L (21.0-32.0); BLOOD UREA NITROGEN 13 MG/DL (7-18); CHLORIDE 95 MEQ/L (98-107); GLOMERULAR FILTRATION RATE 84 ML/MIN (>89); SODIUM (NA) 135 MEQ/L (136-145)
[2017-06-19 13:14] LABS: ALKALINE PHOSPHATASE 98 U/L (45-117); TOTAL BILIRUBIN ADULT 0.2 MG/DL (0.2-1.0)
[2017-06-19] MEDS ORDERED: PALIPERIDONE ER 3 MG TAB PO ONE (13:15)
[2017-06-19] MEDS ORDERED: ASPIRIN 325 MG TAB PO ONE (14:45)
[2017-06-19] MEDS: DOCUSATE SODIUM 100 MG CAP PO SCH ×2 (14:48→20:27)
--- NOTE | 2017-06-19 14:59 | HHI.PYPN ---
Subjective Remarks Patient seen for follow-up, chart review. Patient found sitting on hospital bed eating breakfast, superficially cooperative and guarded today. Patient states patient states that she's been feeling "so-so" ", reports not having noticed much change, and reports her depression continues to be 9 out of 10 (10 being at its worst). She is unable to identify current stressors and dad's contributing to her current depression but continues report having suicidal ideations as well as command auditory hallucinations to hurt himself. Patient at this time states that she is currently having auditory hallucinations and states that they are "all the time" stating that there are several voices. Patient reports to be compliant with treatment it is willing to continue hospitalization for improvement. Review of Systems Except as stated in HPI: all other systems reviewed are Neg Mental Status Examination Appearance: Appropriate Consciousness: Alert Orientation: x4 Motor Activity: Normal gait Speech: Unremarkable Language: Adequate Fund of Knowledge: Adequate Attention and Concentration: Adequate Memory: Unremarkable Mood: Other ("depressed") Affect: Other (restricted) Thought Process & Associations: Intact, Linear Thought Content: Hallucinations Hallucination Type: Auditory (command auditory hallucinations to hurt herself) Delusion Type: None, Paranoid Suicidal Ideation: Yes Suicidal Plan: No Suicidal Intention: No Homicidal Ideation: No Homicidal Plan: No Homicidal Intention: No Insight: Fair Judgment: Impulsive Results Labs Labs reviewed. Test 06/19/17 12:37 Blood Urea Nitrogen 13 MG/DL Creatinine 0.76 MG/DL Random Glucose 274 MG/DL Total Protein 7.1 GM/DL Albumin 3.3 GM/DL Calcium Level 8.9 MG/DL Alkaline Phosphatase 98 U/L Aspartate Amino Transf (AST/SGOT) 23 U/L Alanine Aminotransferase (ALT/SGPT) 59 U/L Total Bilirubin 0.2 MG/DL Sodium Level 135 MEQ/L Potassium Level 4.0 MEQ/L Chloride Level 95 MEQ/L Carbon Dioxide Level 35.4 MEQ/L Anion Gap 5 MEQ/L Estimat Glomerular Filtration Rate 84 ML/MIN Troponin I LESS THAN 0.02 NG/ML Vitals/IOs Vital Signs Date Time Temp Pulse Resp B/P (MAP) Pulse Ox O2 Delivery O2 Flow Rate FiO2 06/19/17 06:21 97.7 73 16 119/57 (77) 97 06/17/17 15:17 Room Air 06/17/17 07:33 3.00 Intake and Output 06/19/17 06/19/17 06/20/17 08:00 16:00 00:00 Intake Total 240 ml Balance 240 ml Assessment & Plan Problem List: (1) Adjustment disorder with depressed mood ICD Codes: F43.21 - Adjustment disorder with depressed mood Assessment & Plan Patient at this time continues to report having depressed mood along with suicidal ideation and command auditory hallucinations to hurt herself. Patient continues with cross titration between ziprasidone and paliperidone. Continue medications as per primary medical team. Discharge planning in progress Justification for Cont. Inpt. Domiciled further decompensation event lower level of care Discharge Planning Patient states her back to her residence was psychiatrically stable. Jah Montelongo MD Jun 19, 2017 14:59
[2017-06-19 18:00] VITALS: BP 110/56; PULSE 73; RESP 19; TEMP 98; O2SAT 96
[2017-06-19] MEDS: ACETAMINOPHEN 325 MG TAB PO PRN (20:27)
[2017-06-19] MEDS ORDERED: DOCUSATE SODIUM 100 MG CAP PO SCH (21:00)
[2017-06-19] MEDS ORDERED: ZIPRASIDONE HCL 40 MG CAP PO SCH (21:00)
[2017-06-20 06:12] VITALS: BP 125/61; PULSE 82; RESP 19; TEMP 97.9; O2SAT 97
[2017-06-20] MEDS: INSULIN DETEMIR 100 UNITS/ML VIAL SQ SCH ×2 (08:05→21:11)
[2017-06-20] MEDS: INSULIN ASPART SUPPLEMENTAL SCALE SQ SCH ×4 (08:05→21:11)
[2017-06-20] MEDS: LISINOPRIL 5 MG TAB PO SCH (08:06)
[2017-06-20] MEDS: METOPROLOL TARTRATE 50 MG TAB PO SCH ×3 (08:06→17:24)
[2017-06-20] MEDS: DOCUSATE SODIUM 100 MG CAP PO SCH ×2 (08:06→21:08)
[2017-06-20] MEDS: SERTRALINE HCL 50 MG TAB PO SCH (08:06)
[2017-06-20] MEDS: BUMETANIDE 1 MG TAB PO SCH (08:06)
[2017-06-20] MEDS: clonazePAM 0.5 MG TAB PO SCH ×2 (08:06→21:09)
[2017-06-20] MEDS: PALIPERIDONE ER 3 MG TAB PO SCH (08:06)
[2017-06-20] MEDS: SUCRALFATE 1 GM TAB PO SCH ×4 (08:06→21:10)
[2017-06-20] MEDS: FAMOTIDINE 20 MG TAB PO SCH ×2 (08:07→21:09)
[2017-06-20] MEDS: BUDESONIDE-FORMOTEROL 80/4.5 MCG INHALER INH SCH ×2 (08:07→21:08)
[2017-06-20] MEDS: RIVAROXABAN 20 MG TAB PO SCH (08:07)
[2017-06-20] MEDS: ZIPRASIDONE HCL 20 MG CAP PO SCH ×2 (08:09→21:08)
--- NOTE | 2017-06-20 08:49 | HHI.PR ---
Subjective Remarks t the margin of the bed. No abdominal pain. Had a BM./ No n/v/d/c. Eating fairly well. Chest pain improved. She has sob with ambulation. Says she has dry nose and bleeding at times from her nose. No fever or chills. No cough. Objective Vitals Vital Signs Date Time Temp Pulse Resp B/P (MAP) Pulse Ox O2 Delivery O2 Flow Rate FiO2 06/20/17 06:12 97.9 82 19 125/61 (82) 97 06/19/17 18:00 98.0 73 19 110/56 (74) 96 I/O 06/19/17 06/19/17 06/19/17 06/20/17 06/20/17 06/20/17 07:00 15:00 23:00 07:00 15:00 23:00 Intake Total 1140 ml 1200 ml 120 ml Balance 1140 ml 1200 ml 120 ml Intake Oral 1040 ml 1200 ml 120 ml IV Total 100 ml # Voids 3 2 1 # Bowel Movements 0 Result Diagram: 06/18/17 1420 06/19/17 1237 Imaging Last Impressions Gall Bladder Ultrasound 06/19/17 0000 Signed Impressions: Service Date/Time: June 08:30 - CONCLUSION: Likely hepatic steatosis. Mild gallbladder sludge Hesham Tomas MD Abdomen X-Ray 06/18/17 0000 Signed Impressions: Service Date/Time: Sunday, June 18, 2017 16:33 - CONCLUSION: 1. Gas distended stomach with an otherwise normal bowel gas pattern. Jose Rojas Jr., MD Objective Remarks GENERAL: This is an obese pt, somewhat unkept. Appears comfortable when I walk in CARDIOVASCULAR: Regular rate and rhythm without murmurs RESPIRATORY: Clear to auscultation. Breath sounds equal bilaterally. No wheezes GASTROINTESTINAL: Abdomen soft, very uncomfortable w deep palpation seems to be more pronounced in the RUQ area and epigastric area, obese. difficult to examine due to body habitus MUSCULOSKELETAL: Extremities without edema. No joint tenderness, effusion, or edema noted. No calf tenderness. Negative Homans sign bilaterally. NEUROLOGICAL: Awake and alert. Cranial nerves II through XII appear grossly intact. moves extremities. Normal speech. A/P Assessment and Plan This is a 42-year-old female with suicidal ideation, we were consulted for abdominal pain Suicidal ideation: with a plan. Management per psychiatry Abdominal pain:. Resolved. Patient complained of abdominal pain of 9/10 although when I came in pt was sleeping and appeared comfortable. she complains of pain w deep palpation diffusely although she only really grimaces w palpation in the RUQ/epigastric area. This has resolved. Workup is negative, lipase is normal, KUB negative, ultrasound showed hepatic steatosis and biliary sludge. Monitor for now. Chest pain-could be psychiatric. EKG reviewed no acute findings, no ischemic changes. Troponin negative x2. CHF: heart healthy diet, fluid restriction 1500ml/day. BB and bumex resumed. monitor K levels COPD: stable, on home oxygen. Duoneb prn. home meds resumed HTN: stable. on home meds. added vasotec IV and clonidine prn for BP's >160/90. Continue lisinopril. IDDM: on levemir. Decrease to 14 units twice a day. Monitor BS and adjust insulin as indicated. Thank you for allowing me to take part of Mrs. Bullock's care, will continue to follow Discussed Condition With patient, nurse, Dr Montelongo psychiatry Becky Palacio MD Jun 20, 2017 08:49
[2017-06-20] MEDS ORDERED: ERGOCALCIFEROL (VIT D2) 50,000 UNIT CAP PO SCH (11:00)
[2017-06-20] MEDS ORDERED: SODIUM CHLORIDE 0.65% NASAL SPRAY 45 ML BTL EACH NARE PRN (11:00)
--- NOTE | 2017-06-20 15:11 | HHI.PYPN ---
Subjective Remarks Patient seen for follow-up, chart reviewed. Patient found sitting in hospital bed conversing with sitter laughing. Patient she states her that she has a feeling "a little bad, still depressed". Patient continues to report auditory hallucinations she has braces the same intensity and frequency and continues to report command auditory hallucinations to hurt herself by cutting her wrists. Patient reports sleeping well, he drinking well, continues to report some constipation, and her mood has been "so-so". When asked what her 3 reasons to live she states "not sure" but then states "I'm pretty, I have this is a humor and address ready". Patient reports tolerating medications well. Review of Systems Except as stated in HPI: all other systems reviewed are Neg Mental Status Examination Appearance: Appropriate Consciousness: Alert Orientation: x4 Motor Activity: Normal gait Speech: Unremarkable Language: Adequate Fund of Knowledge: Adequate Attention and Concentration: Adequate Memory: Unremarkable Mood: Other ("still depressed") Affect: Other (restricted although noted to be more reactive today.) Thought Process & Associations: Intact, Linear Thought Content: Hallucinations Hallucination Type: Auditory (command auditory hallucinations to hurt herself) Delusion Type: None, Paranoid Suicidal Ideation: Yes Suicidal Plan: No Suicidal Intention: No Homicidal Ideation: No Homicidal Plan: No Homicidal Intention: No Insight: Fair Judgment: Impulsive Results Labs Labs reviewed. Test 06/19/17 21:20 Troponin I LESS THAN 0.02 NG/ML Vitals/IOs Vital Signs Date Time Temp Pulse Resp B/P (MAP) Pulse Ox O2 Delivery O2 Flow Rate FiO2 06/20/17 06:12 97.9 82 19 125/61 (82) 97 06/17/17 15:17 Room Air 06/17/17 07:33 3.00 Intake and Output 06/20/17 06/20/17 06/21/17 08:00 16:00 00:00 Intake Total 120 ml 480 ml Balance 120 ml 480 ml Assessment & Plan Problem List: (1) Adjustment disorder with depressed mood ICD Codes: F43.21 - Adjustment disorder with depressed mood Assessment & Plan Patient at this time continues to endorse feeling depressed, along with auditory hallucinations command type to hurt herself. Patient noted to be more engaging in interview and more reactive with occasional smiling and laughing. We'll continues to cross taper Geodon with paliperidone. We'll start sertraline 50 mg by mouth daily for depressive symptoms. Discharge planning in progress Justification for Cont. Inpt. At risk for further decompensation if at lower level of care Discharge Planning Patient return back to her residence once psychiatric stable. Jah Montelongo MD Jun 20, 2017 15:11
[2017-06-20 18:00] VITALS: BP 131/74; PULSE 86; RESP 19; TEMP 98.7; O2SAT 95
--- NOTE | 2017-06-20 18:21 | EKG ---
Date Performed: 06/19/2017 Time Performed: 14:20:25 PTAGE: 42 years EKG: Sinus rhythm LOW QRS VOLTAGE IN PRECORDIAL LEADS INFERIOR MYOCARDIAL INFARCTION , OF INDETERMINATE AGE MODERATE T -WAVE ABNORMALITY, CONSIDER LATERAL ISCHEMIA ABNORMAL ECG PREVIOUS TRACING : 06/18/2017 07.27 DOCTOR: Kalee Paulino Interpretating Date/Time 06/20/2017 18:16:18
[2017-06-20] MEDS: ACETAMINOPHEN 325 MG TAB PO PRN (21:09)
[2017-06-21 05:01] VITALS: BP 102/59; PULSE 104; RESP 16; TEMP 98; O2SAT 98
[2017-06-21] MEDS: INSULIN ASPART SUPPLEMENTAL SCALE SQ SCH ×4 (08:00→21:00)
[2017-06-21] MEDS: clonazePAM 0.5 MG TAB PO SCH ×2 (08:14→21:00)
[2017-06-21] MEDS: METOPROLOL TARTRATE 50 MG TAB PO SCH ×3 (08:14→18:00)
[2017-06-21] MEDS: SUCRALFATE 1 GM TAB PO SCH ×4 (08:14→21:00)
[2017-06-21] MEDS: BUMETANIDE 1 MG TAB PO SCH (08:14)
[2017-06-21] MEDS: PALIPERIDONE ER 3 MG TAB PO SCH (08:14)
[2017-06-21] MEDS: SERTRALINE HCL 50 MG TAB PO SCH (08:14)
[2017-06-21] MEDS: DOCUSATE SODIUM 100 MG CAP PO SCH ×2 (08:14→21:00)
[2017-06-21] MEDS: LISINOPRIL 5 MG TAB PO SCH (08:14)
[2017-06-21] MEDS: INSULIN DETEMIR 100 UNITS/ML VIAL SQ SCH ×3 (08:15→21:00)
[2017-06-21] MEDS: ZIPRASIDONE HCL 20 MG CAP PO SCH (08:15)
[2017-06-21] MEDS: FAMOTIDINE 20 MG TAB PO SCH ×2 (08:15→21:00)
[2017-06-21] MEDS: BUDESONIDE-FORMOTEROL 80/4.5 MCG INHALER INH SCH ×2 (08:15→21:00)
[2017-06-21] MEDS: RIVAROXABAN 20 MG TAB PO SCH (08:15)
[2017-06-21 13:36] VITALS: BP 127/63; PULSE 90; RESP 16; TEMP 98.1
[2017-06-21] MEDS: LORazepam 1 MG TAB PO PRN (13:50)
--- NOTE | 2017-06-21 15:24 | HHI.PYPN ---
Subjective Remarks Patient was seen and case discussed with nursing. Pt says she has CP radiating to her L arm for the past hour. Mild sob. Nursing says they have been working to contact the medical team and am just being made aware of the situation. Pt does not seem in distress and is lying calmly in bed. Continues to c/o of depressed and suicidal ideation with impulses to cut. She has a 1:1. Mental Status Examination Appearance: Appropriate Consciousness: Alert Orientation: x4 Motor Activity: Normal gait Speech: Unremarkable Language: Adequate Fund of Knowledge: Adequate Attention and Concentration: Adequate Memory: Unremarkable Mood: Other ("still depressed") Affect: Other (restricted although noted to be more reactive today.) Thought Process & Associations: Intact, Linear Thought Content: Hallucinations Hallucination Type: Auditory (command auditory hallucinations to hurt herself) Delusion Type: None, Paranoid Suicidal Ideation: Yes Suicidal Plan: No Suicidal Intention: No Homicidal Ideation: No Homicidal Plan: No Homicidal Intention: No Insight: Fair Judgment: Impulsive Results Vitals/IOs Vital Signs Date Time Temp Pulse Resp B/P (MAP) Pulse Ox O2 Delivery O2 Flow Rate FiO2 06/21/17 13:36 98.1 90 16 127/63 (84) 06/21/17 05:01 98 06/17/17 15:17 Room Air 06/17/17 07:33 3.00 Intake and Output 06/21/17 06/21/17 06/22/17 08:00 16:00 00:00 Intake Total 840 ml 360 ml Balance 840 ml 360 ml Assessment & Plan Problem List: (1) Adjustment disorder with depressed mood ICD Codes: F43.21 - Adjustment disorder with depressed mood Assessment & Plan The following items were ordered stat: ekg, cardiac enzymes, chest xray and a stat consult. Dr. Rowell came to see the patient and I am waiting for a call back to find out his plan. wharf attendant psychiatrist was also made aware of the situation. Justification for Cont. Inpt. Patient would decompensate in a less restricting setting. Jeremiah Taylor DO Jun 21, 2017 15:24
--- NOTE | 2017-06-21 15:40 | RADRPT ---
EXAM DATE/TIME: 06/21/2017 15:22 [facility] COMPARISON: No previous studies available for comparison. INDICATIONS : Chest pain. MEDICAL HISTORY : Chronic obstructive pulmonary disease. Congestive heart failure. Asthma. SURGICAL HISTORY : None. ENCOUNTER: Initial ACUITY: 1 day PAIN SCORE: 5/10 LOCATION: Bilateral chest FINDINGS: A single view of the chest demonstrates the lungs to be symmetrically hypoinflated but clear. Account ing for low lung volumes, heart size is still borderline prominent. Osseous structures are intact. CONCLUSION: 1. Hypoinflation with no acute infiltrate. 2. Borderline prominent but well compensated heart Dorian Adamson MD on June 21, 2017 at 15:37 Board Certified Radiologist. This report was verified electronically.
--- NOTE | 2017-06-21 16:04 | HHI.PR ---
Subjective Remarks Patient seen this afternoon around 3 PM. She reports sharp left upper chest pain radiating to arm and back, worse with deep breaths. Denies any nausea or vomiting. Denies any abdominal pain. She does report chronic bilateral leg pain. Objective Vital Signs Date Time Temp Pulse Resp B/P (MAP) Pulse Ox O2 Delivery O2 Flow Rate FiO2 06/21/17 13:36 98.1 90 16 127/63 (84) 06/21/17 05:01 98.0 104 16 102/59 (73) 98 06/20/17 22:09 18 06/20/17 18:00 98.7 86 19 131/74 (93) 95 I/O 06/20/17 06/20/17 06/20/17 06/21/17 06/21/17 06/21/17 07:00 15:00 23:00 07:00 15:00 23:00 Intake Total 120 ml 480 ml 1200 ml 240 ml 960 ml Balance 120 ml 480 ml 1200 ml 240 ml 960 ml Intake Oral 120 ml 480 ml 1200 ml 240 ml 960 ml # Voids 1 2 2 Result Diagram: 06/18/17 1420 06/19/17 1237 Objective Remarks GENERAL: Patient lying in bed. Appears comfortable. SKIN: Warm and dry. HEAD: Normocephalic. EYES: No scleral icterus. No injection or drainage. NECK: Supple, trachea midline. No JVD. CARDIOVASCULAR: Regular rate and rhythm without murmurs, gallops, or rubs. RESPIRATORY: Breath sounds equal bilaterally. No accessory muscle use. GASTROINTESTINAL: Abdomen soft, non-tender, nondistended. MUSCULOSKELETAL: No cyanosis, or edema. Patient reports bilateral leg tenderness to palpation. No erythema. BACK: Nontender without obvious deformity. No CVA tenderness. A/P Assessment and Plan This is a 42-year-old female with suicidal ideation, we were consulted for abdominal pain //Suicidal ideation: with a plan. Management per psychiatry //Abdominal pain:. Resolved. Patient complained of abdominal pain of 9/10 although when I came in pt was sleeping and appeared comfortable. she complains of pain w deep palpation diffusely although she only really grimaces w palpation in the RUQ/epigastric area. This has resolved. Workup is negative, lipase is normal, KUB negative, ultrasound showed hepatic steatosis and biliary sludge. Monitor for now. //Chest pain-could be psychiatric. EKG reviewed no acute findings, no ischemic changes. Troponin negative x2. = Repeat chest pain 06/21. We'll check d-dimer , serial troponins. EKG no change from baseline. //Bilateral leg pain. Expect this is secondary to fibromyalgia related to untreated sleep apnea. We'll check ultrasound to rule out DVT. //CHF: heart healthy diet, fluid restriction 1500ml/day. BB and bumex resumed. monitor K levels //COPD: stable, on home oxygen. Duoneb prn. home meds resumed //HTN: stable. on home meds. added vasotec IV and clonidine prn for BP's >160/ 90. Continue lisinopril. //Hypovitaminosis D. Continue replacement. //IDDM: on levemir. = Increase Levemir to 16 units twice daily. Obtain diabetic diet and sliding scale. Hardy Rowell MD Jun 21, 2017 16:04
[2017-06-21 16:20] LABS: ALT (GPT) 58 U/L (10-53); ANION GAP 6 MEQ/L (5-15); AST (GOT) 23 U/L (15-37); BICARBONATE 35.7 MEQ/L (21.0-32.0); BLOOD UREA NITROGEN 18 MG/DL (7-18); CHLORIDE 92 MEQ/L (98-107); GLOMERULAR FILTRATION RATE 51 ML/MIN (>89); SODIUM (NA) 134 MEQ/L (136-145)
[2017-06-21 16:23] LABS: ALKALINE PHOSPHATASE 102 U/L (45-117); TOTAL BILIRUBIN ADULT 0.4 MG/DL (0.2-1.0)
[2017-06-21 16:26] LABS: CREATINE KINASE 47 U/L (26-192)
[2017-06-21 16:59] LABS: BASOPHIL % 0.5 % (0.0-2.0); EOSINOPHIL % 0.6 % (0.0-4.0); HEMATOCRIT 38.7 % (35.0-46.0); HEMO FLAGS DIFF FINAL; LYMPH % 21.2 % (9.0-44.0); LYMPHOCYTE # 1.5 TH/MM3 (1.0-4.8); MEAN CELL VOLUME 95.6 FL (80.0-100.0); MEAN CORPUSCULAR HEMOGLOBIN 32.7 PG (27.0-34.0); MEAN CORPUSCULAR HGB CONC 34.2 % (32.0-36.0); MONO % 6.8 % (0.0-8.0); NEUT % 70.9 % (16.0-70.0); PLATELET COUNT 220 TH/MM3 (150-450); RED BLOOD COUNT 4.05 MIL/MM3 (4.00-5.30); RED CELL DISTRIBUTION WIDTH 14.7 % (11.6-17.2); WHITE BLOOD COUNT 7.1 TH/MM3 (4.0-11.0)
--- NOTE | 2017-06-21 17:50 | RADRPT ---
EXAM DATE/TIME: 06/21/2017 17:14 [facility] COMPARISON: No previous studies available for comparison. INDICATIONS : Bilateral leg swelling. MEDICAL HISTORY : Congestive heart failure. Hypercholesterolemia. Diabetes mellitus type 2. HTN. Seizures. Coronary art cirilo disease. COPD. Asthma. Polycystic ovarian disease. Bipolar disorder. Depression. Anxiety. SURGICAL HISTORY : Tonsillectomy. Left eye surgery for lazy eye. Blood transfusions. ENCOUNTER: Initial ACUITY: 1 day PAIN SCORE: 3/10 LOCATION: Bilateral leg. TECHNIQUE: Venous ultrasound of the left and right leg was performed from the inguinal ligament to the proximal calf. Real-time, color Doppler and spectral tracing, compression and augmentation techniques were us ed. FINDINGS: RIGHT LEG: There is normal compressibility of the deep venous system from the inguinal region to the proximal ca lf. No echogenic clot is seen in the lumen of the common femoral, femoral, popliteal, and posterior tibial veins. There is a normal response of the venous system to proximal and distal augmentation an d respiration. LEFT LEG: There is normal compressibility of the deep venous system from the inguinal region to the proximal ca lf. No echogenic clot is seen in the lumen of the common femoral, femoral, popliteal, and posterior tibial veins. There is a normal response of the venous system to proximal and distal augmentation an d respiration. CONCLUSION: No DVT is identified within either lower extremity. Hesham Sykes MD on June 21, 2017 at 17:48 Board Certified Radiologist. This report was verified electronically.
[2017-06-21 18:00] VITALS: BP 124/55; PULSE 92; RESP 17; TEMP 98; O2SAT 97
[2017-06-21] MEDS: ACETAMINOPHEN/HYDROcodone 325 MG/5 MG TAB PO PRN ×2 (18:35→21:00)
[2017-06-21] MEDS ORDERED: MORPHINE SULFATE 2 MG/ML INJ IV ONE (20:45)
[2017-06-22] MEDS ORDERED: ENOXAPARIN SODIUM 120 MG/0.8 ML SYRINGE SQ ONE (01:30)
[2017-06-22 06:09] VITALS: BP 120/58; PULSE 99; RESP 16; TEMP 97.6; O2SAT 97
[2017-06-22] MEDS: INSULIN ASPART SUPPLEMENTAL SCALE SQ SCH ×4 (08:00→21:00)
[2017-06-22] MEDS: INSULIN DETEMIR 100 UNITS/ML VIAL SQ SCH ×2 (08:27→21:00)
[2017-06-22] MEDS: SUCRALFATE 1 GM TAB PO SCH ×4 (08:29→21:56)
[2017-06-22] MEDS: SERTRALINE HCL 50 MG TAB PO SCH (08:30)
[2017-06-22] MEDS: BUMETANIDE 1 MG TAB PO SCH (08:30)
[2017-06-22] MEDS: METOPROLOL TARTRATE 50 MG TAB PO SCH ×3 (08:31→18:04)
[2017-06-22] MEDS: RIVAROXABAN 20 MG TAB PO SCH (08:31)
[2017-06-22] MEDS: DOCUSATE SODIUM 100 MG CAP PO SCH ×2 (08:32→21:09)
[2017-06-22] MEDS: LISINOPRIL 5 MG TAB PO SCH (08:32)
[2017-06-22] MEDS: FAMOTIDINE 20 MG TAB PO SCH ×2 (08:32→21:00)
[2017-06-22] MEDS: PALIPERIDONE ER 6 MG TAB PO SCH (08:32)
[2017-06-22] MEDS: clonazePAM 0.5 MG TAB PO SCH ×2 (08:33→21:09)
[2017-06-22] MEDS: LORazepam 1 MG TAB PO PRN (08:36)
[2017-06-22] MEDS: BUDESONIDE-FORMOTEROL 80/4.5 MCG INHALER INH SCH ×2 (09:00→21:09)
[2017-06-22] MEDS ORDERED: SODIUM CHLOR 0.9% 250 ML INJ 250 ML IV ONE (10:30)
--- NOTE | 2017-06-22 13:24 | EKG ---
Date Performed: 06/21/2017 Time Performed: 15:17:22 PTAGE: 42 years EKG: Sinus rhythm INCOMPLETE RIGHT BUNDLE BRANCH BLOCK NONSPECIFIC ST & T-WAVE ABNORMALITY BORDERLINE ECG Compared to PREVIOUS TRACING , the tracing today does not show inferior wall DE as seen in previous t racing. PREVIOUS TRACIN06/19/2017 14.20 DOCTOR: Willie Chase Interpretating Date/Time 06/22/2017 13:22:13
--- NOTE | 2017-06-22 13:24 | EKG ---
Date Performed: 06/21/2017 Time Performed: 17:56:18 PTAGE: 42 years EKG: Sinus rhythm NONSPECIFIC ST & T-WAVE ABNORMALITY INCOMPLETE RBBB BORDERLINE ECG Since PREVIOUS TRACING , no significant change noted PREVIOUS TRACIN06/21/2017 15.17 DOCTOR: Willie Chase Interpretating Date/Time 06/22/2017 13:22:37
--- NOTE | 2017-06-22 13:24 | EKG ---
Date Performed: 06/22/2017 Time Performed: 00:38:25 PTAGE: 42 years EKG: Incomplete right bundle branch block Diffused nonspecific T-wave change Since previous trac ing, no significant change noted ABNORMAL ECG PREVIOUS TRACING : 06/21/2017 17.56 DOCTOR: Willie Chase Interpretating Date/Time 06/22/2017 13:23:21
--- NOTE | 2017-06-22 14:06 | PD.CONS ---
HPI Consult Requested By Primary Care Physician Unknown History of Present Illness 42yr old female w PMHx of ?CHF, COPD on home oxygen, HTN, DM, morbid obesity admitted in the med/psych unit for suicidal ideation. Pt states that she has been has been having auditory hallucination telling her to hurt herself for the past few days. She states that her plan is to cut her wrist. Cardiology consulted because of complaints of chest pain. Troponin negative x3. EKG unchanged since admission, showing T wave inversion anteriorly. 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 Solano she reports having a recent stress test at the beginning of the month, however don't remember results. She report the pain gets worse with movement and with inspiration. Review of Systems Consitutional: DENIES: Fatigue, Fever, Chills, Weight gain, Weight loss Eyes: DENIES: Amaurosis [place], Change in vision HEENT: DENIES: Lightheadedness, Change in hearing Respiratory: DENIES: See HPI, Cough, Snoring, Shortness of breath, Wheezing, Sputum production Cardiovascular: COMPLAINS OF: See HPI, Chest pain, DENIES: Palpitations, Syncope, Tachycardia Gastrointestinal: DENIES: Nausea, Vomiting, Change in bowel habits, Reflux, Bloody stools, Melena Genitourinary: DENIES: Urinary incontinence, Difficulty voiding Integumentary: DENIES: Rash Neurologic: DENIES: Tingling or numbness, Memory problems, Poor Balance, Stroke symptoms Musculoskeletal: DENIES: Joint pain, Muscle pain, Limited range of motion, Back pain Psychiatric: DENIES: Anxiety, Depression, Sleep disturbances Hematologic: DENIES: Bruising tendencies, Bleeding tendencies Endocrine: DENIES: Weight gain, Weight loss, Thyroid disease Past Family Social History Allergies: Coded Allergies: meperidine (Unverified Allergy, Severe, 03/25/17) [place] Dust (Unverified Allergy, Intermediate, Sneezing, 06/16/17) NSAIDS (Non-Steroidal Anti-Inflamma (Unverified Adverse Reaction, Intermediate, Hives, 06/16/17) aspirin (Unverified Adverse Reaction, Intermediate, Hives, 06/16/17) ciprofloxacin (Unverified Adverse Reaction, Intermediate, Hives, 06/16/17) Past Medical History CHF, COPD on home oxygen, HTN, DM, Past Surgical History tonsillectomy Reported Medications Reported Meds & Active Scripts Active Reported Ziprasidone 80 Mg Cap 80 Mg PO BID Symbicort Inh (Budesonide/Formoterol Fumarate) 80-4.5 Mcg/Act Aero 2 Puff INH Q12HR Sucralfate 1 Gram Tab 1 Gm PO QID on empty stomach Rosuvastatin (Rosuvastatin Calcium) 5 Mg Tab 5 Mg PO HS Xarelto (Rivaroxaban) 20 Mg Tab 20 Mg PO DAILY Pepcid (Famotidine) 20 Mg Tab 20 Mg PO BID Paxil (Paroxetine HCl) 30 Mg Tab 40 Mg PO DAILY Nitroglycerin SL (Nitroglycerin) 0.4 Mg Subl 0.4 Mg SL DIRECTED PRN ONE TABLET UNDER THE TONGUE NEEDED FOR CHEST PAIN, MAY REPEAT EVERY FIVE MINUTES FOR A TOTAL OF 3 DOSES OR CALL 911 IF NO RELIEF Milk of Magnesia Liq (Magnesium Hydroxide) 400 Mg/5 Ml Susp 60 Ml PO DAILY PRN Metoprolol Tartrate 50 Mg Tab 50 Mg PO TID Lantus Inj (Insulin Glargine) 1,000 Unit/10 Ml Vial 10 Units SQ BID Klonopin (Clonazepam) 0.5 Mg Tab 0.5 Mg PO BID Hydrocodone-Acetaminophen 5-325 mg Tab 1 Tab PO Q4H PRN Ferrousul (Ferrous Sulfate) 325 Mg (65 Mg Iron) Tab Tab PO DAILY Enema Disposable (Sodium Phosphates) 19 Gram-7 Gram/118 Ml Rin Dulcolax Supp (Bisacodyl) 10 Mg Supp 10 Mg RECTAL DAILY PRN Bumetanide 1 Mg Tab 1 Mg PO DAILY Sm Womans Laxative (Bisacodyl) 5 Mg Tab 10 Mg PO Active Ordered Medications Current Medications Medications (Trade) Dose Ordered Sig/Eliz Route Start Time Stop Time Status Last Admin (Ativan) 1 mg Q6H PRN PO 06/17/17 15:00 06/22/17 08:36 (Ativan Inj) 1 mg Q6H PRN IM 06/17/17 15:00 (Benadryl) 50 mg Q6H PRN PO 06/17/17 15:00 (Benadryl Inj) 50 mg Q6H PRN IM 06/17/17 15:00 (Tylenol) 650 mg Q4H PRN PO 06/17/17 15:00 06/20/17 21:09 (Mag-Al Plus Susp Liq) 30 ml Q6H PRN PO 06/17/17 15:00 (Dulcolax Supp) 10 mg DAILY PRN RECTAL 06/17/17 15:00 (Symbicort 80-4.5 Mcg Inh) 2 puff Q12HR INH 06/17/17 21:00 06/22/17 09:00 (Bumetanide) 1 mg DAILY PO 06/18/17 09:00 06/22/17 08:30 (KlonoPIN) 0.5 mg BID PO 06/17/17 21:00 06/22/17 08:33 (Pepcid) 20 mg BID PO 06/17/17 21:00 06/22/17 08:32 ([place] 5-325 Mg) 1 tab Q4H PRN PO 06/17/17 15:00 06/21/17 18:35 (Milk Of Magnesia Liq) 60 ml DAILY PRN PO 06/17/17 15:00 (Lopressor) 50 mg TID PO 06/17/17 18:00 06/22/17 08:31 (Xarelto) 20 mg DAILY PO 06/18/17 09:00 06/22/17 08:31 (Carafate) 1 gm QID PO 06/17/17 18:00 06/22/17 08:29 (D50w (Syr) Inj) 50 ml UNSCH PRN IV PUSH 06/18/17 15:45 (Glucagon Inj) 1 mg UNSCH PRN OTHER 06/18/17 15:45 (NovoLOG SUPPLEMENTAL SCALE) 1 ACHS SLIDING SCALE SQ 06/18/17 17:00 06/22/17 11:49 (Duoneb Neb) 1 ampule Q6HR NEB PRN NEB 06/18/17 16:15 (Vasotec Inj) 1.25 mg Q6H PRN IV PUSH 06/18/17 16:15 (Catapres) 0.1 mg Q6H PRN PO 06/18/17 16:15 (Prinivil) 5 mg DAILY PO 06/19/17 09:00 06/22/17 08:32 (Colace) 100 mg BID PO 06/19/17 14:00 06/22/17 08:32 (Zoloft) 50 mg DAILY PO 06/20/17 09:00 06/22/17 08:30 (Drisdol) 50,000 units Q7D PO 06/20/17 11:00 08/08/17 11:01 06/20/17 12:11 ([place]) 2 spray Q4H PRN EACH NARE 06/20/17 11:00 (Levemir Inj) 16 units BID SQ 06/21/17 09:00 06/22/17 08:27 (Invega Er) 6 mg DAILY PO 06/22/17 09:00 06/22/17 08:32 Family History mother from breast cancer father- she doesn't know him Social History denies any smoking hx, alcohol use or illegal drug use Physical Exam Vital Signs Vital Signs Date Time Temp Pulse Resp B/P (MAP) Pulse Ox O2 Delivery O2 Flow Rate FiO2 06/22/17 06:09 97.6 99 16 120/58 (78) 97 06/21/17 19:35 22 06/21/17 18:00 98.0 92 17 124/55 (78) 97 Physical Exam GENERAL: Well-nourished, well-developed patient. SKIN: Warm and dry. HEAD: Normocephalic. EYES: No scleral icterus. No injection or drainage. NECK: Supple, trachea midline. No JVD or lymphadenopathy. CARDIOVASCULAR: Regular rate and rhythm without murmurs, gallops, or rubs. RESPIRATORY: Breath sounds equal bilaterally. No accessory muscle use. GASTROINTESTINAL: Abdomen soft, non-tender, nondistended. EXTREMITIES: No cyanosis, or edema. NEUROLOGICAL: Awake, alert, and oriented x 3. Non-focal. Laboratory Laboratory Tests Test 06/21/17 15:42 06/21/17 16:41 06/21/17 16:44 06/21/17 23:46 Blood Urea Nitrogen 18 Creatinine 1.17 Random Glucose 241 Total Protein 7.1 Albumin 3.5 Calcium Level 9.1 Alkaline Phosphatase 102 Aspartate Amino Transf (AST/SGOT) 23 Alanine Aminotransferase (ALT/SGPT) 58 Total Bilirubin 0.4 Sodium Level 134 Potassium Level 4.0 Chloride Level 92 Carbon Dioxide Level 35.7 Anion Gap 6 Estimat Glomerular Filtration Rate 51 Total Creatine Kinase 47 Troponin I LESS THAN 0.02 LESS THAN 0.02 White Blood Count 7.1 Red Blood Count 4.05 Hemoglobin 13.2 Hematocrit 38.7 Mean Corpuscular Volume 95.6 Mean Corpuscular Hemoglobin 32.7 Mean Corpuscular Hemoglobin Concent 34.2 Red Cell Distribution Width 14.7 Platelet Count 220 Mean Platelet Volume 7.0 Neutrophils (%) (Auto) 70.9 Lymphocytes (%) (Auto) 21.2 Monocytes (%) (Auto) 6.8 Eosinophils (%) (Auto) 0.6 Basophils (%) (Auto) 0.5 Neutrophils # (Auto) 5.0 Lymphocytes # (Auto) 1.5 Monocytes # (Auto) 0.5 Eosinophils # (Auto) 0.0 Basophils # (Auto) 0.0 CBC Comment DIFF FINAL Differential Comment D-Dimer Quantitative (PE/DVT) LESS THAN 0.19 Result Diagram: 06/21/17 1641 06/21/17 1542 Imaging Last Impressions Lower Extremity Ultrasound 06/21/17 0000 Signed Impressions: Service Date/Time: Wednesday, June 21, 2017 17:14 - CONCLUSION: No DVT is identified within either lower extremity. Hesham Sykes MD Chest X-Ray 06/21/17 0000 Signed Impressions: Service Date/Time: Wednesday, June 21, 2017 15:22 - CONCLUSION: 1. Hypoinflation with no acute infiltrate. 2. Borderline prominent but well compensated heart Dorian Adamson MD Gall Bladder Ultrasound 06/19/17 0000 Signed Impressions: Service Date/Time: June 08:30 - CONCLUSION: Likely hepatic steatosis. Mild gallbladder sludge Hesham Tomas MD Abdomen X-Ray 06/18/17 0000 Signed Impressions: Service Date/Time: Sunday, June 18, 2017 16:33 - CONCLUSION: 1. Gas distended stomach with an otherwise normal bowel gas pattern. Jose Rojas Jr., MD Assessment and Plan Problem List: (1) Chest pain ICD Codes: R07.9 - Chest pain, unspecified Plan: Atypical chest pain, Cardiac x3 negative. EKG with more prominent T wave inversions in anterior leads but not new. She has a recent (begin of June 2017) negative stress test done a Dr. Solano office, showing small fixed defect in the inferior wall, low risk stress test. At this point I would treat her risk factors for CAD: HTN, DM, HLD with BB, ACEi and statin. Get 2 D- echocardiogram. Plan: Medical management. Start Lopressor 12.5 mg PO BID and increase as HR and BP tolerated Cont ACEi Weight Loss Encourage exercise and diet 2Decho Thank you for the opportunity to participate in the care of this patient Reconsult if necessary (2) Medical clearance for psychiatric admission ICD Codes: Z00.8 - Encounter for other general examination Status: Acute (3) Adjustment disorder with depressed mood ICD Codes: F43.21 - Adjustment disorder with depressed mood Rashaun Burleson MD Jun 22, 2017 14:06
--- NOTE | 2017-06-22 15:27 | HHI.PYPN ---
Subjective Remarks Patient was seen and case discussed with nursing. Pt continues to be attention seeking. She colored her arms saying they were cuts. She remains, angry with a fixed stare. Per medical team, her cardiac work up is negative as of today. Pt c/o of AH telling her to hurt herself. Mental Status Examination Appearance: Disheveled Consciousness: Alert Orientation: x4 Motor Activity: Normal gait Speech: Unremarkable Language: Adequate Fund of Knowledge: Adequate Attention and Concentration: Adequate Memory: Unremarkable Mood: Angry Affect: Irritable Thought Process & Associations: Intact, Linear Thought Content: Hallucinations Hallucination Type: Auditory (command auditory hallucinations to hurt herself) Delusion Type: None, Paranoid Suicidal Ideation: Yes (fleeting) Suicidal Plan: Yes (to cut) Suicidal Intention: No Homicidal Ideation: No Homicidal Plan: No Homicidal Intention: No Insight: Fair Judgment: Impulsive Results Labs Test 06/21/17 15:42 06/21/17 16:41 06/21/17 16:44 06/21/17 23:46 Blood Urea Nitrogen 18 MG/DL Creatinine 1.17 MG/DL Random Glucose 241 MG/DL Total Protein 7.1 GM/DL Albumin 3.5 GM/DL Calcium Level 9.1 MG/DL Alkaline Phosphatase 102 U/L Aspartate Amino Transf (AST/SGOT) 23 U/L Alanine Aminotransferase (ALT/SGPT) 58 U/L Total Bilirubin 0.4 MG/DL Sodium Level 134 MEQ/L Potassium Level 4.0 MEQ/L Chloride Level 92 MEQ/L Carbon Dioxide Level 35.7 MEQ/L Anion Gap 6 MEQ/L Estimat Glomerular Filtration Rate 51 ML/MIN Total Creatine Kinase 47 U/L Troponin I LESS THAN 0.02 NG/ML LESS THAN 0.02 NG/ML White Blood Count 7.1 TH/MM3 Red Blood Count 4.05 MIL/MM3 Hemoglobin 13.2 GM/DL Hematocrit 38.7 % Mean Corpuscular Volume 95.6 FL Mean Corpuscular Hemoglobin 32.7 PG Mean Corpuscular Hemoglobin Concent 34.2 % Red Cell Distribution Width 14.7 % Platelet Count 220 TH/MM3 Mean Platelet Volume 7.0 FL Neutrophils (%) (Auto) 70.9 % Lymphocytes (%) (Auto) 21.2 % Monocytes (%) (Auto) 6.8 % Eosinophils (%) (Auto) 0.6 % Basophils (%) (Auto) 0.5 % Neutrophils # (Auto) 5.0 TH/MM3 Lymphocytes # (Auto) 1.5 TH/MM3 Monocytes # (Auto) 0.5 TH/MM3 Eosinophils # (Auto) 0.0 TH/MM3 Basophils # (Auto) 0.0 TH/MM3 CBC Comment DIFF FINAL Differential Comment D-Dimer Quantitative (PE/DVT) LESS THAN 0.19 MG/L FEU Vitals/IOs Vital Signs Date Time Temp Pulse Resp B/P (MAP) Pulse Ox O2 Delivery O2 Flow Rate FiO2 06/22/17 06:09 97.6 99 16 120/58 (78) 97 Assessment & Plan Problem List: (1) Adjustment disorder with depressed mood ICD Codes: F43.21 - Adjustment disorder with depressed mood Assessment & Plan Continue current treatment plan Justification for Cont. Inpt. Pt would decompensate in a less restrictive setting Jeremiah Taylor DO Jun 22, 2017 15:27
--- NOTE | 2017-06-22 17:23 | HHI.PR ---
Subjective Remarks Patient states that sharp constant left chest pain continues. Denies any nausea or vomiting. Denies any abdominal pain. Objective Vital Signs Date Time Temp Pulse Resp B/P (MAP) Pulse Ox O2 Delivery O2 Flow Rate FiO2 06/22/17 06:09 97.6 99 16 120/58 (78) 97 06/21/17 19:35 22 06/21/17 18:00 98.0 92 17 124/55 (78) 97 I/O 06/21/17 06/21/17 06/21/17 06/22/17 06/22/17 06/22/17 07:00 15:00 23:00 07:00 15:00 23:00 Intake Total 240 ml 960 ml 2040 ml Balance 240 ml 960 ml 2040 ml Intake Oral 240 ml 960 ml 2040 ml # Voids 2 4 1 # Bowel Movements 1 Result Diagram: 06/21/17 1641 06/21/17 1542 Objective Remarks GENERAL: Patient up on edge of bed. Appears comfortable. Change on exam today. SKIN: Warm and dry. HEAD: Normocephalic. EYES: No scleral icterus. No injection or drainage. NECK: Supple, trachea midline. No JVD. CARDIOVASCULAR: Regular rate and rhythm without murmurs, gallops, or rubs. RESPIRATORY: Breath sounds equal bilaterally. No accessory muscle use. GASTROINTESTINAL: Abdomen soft, non-tender, nondistended. MUSCULOSKELETAL: No cyanosis, or edema. Patient reports bilateral leg tenderness to palpation. No erythema. BACK: Nontender without obvious deformity. No CVA tenderness. A/P Assessment and Plan This is a 42-year-old female with suicidal ideation, we were consulted for abdominal pain //Suicidal ideation: with a plan. Management per psychiatry //Abdominal pain:. Resolved. Patient complained of abdominal pain of 9/10 although when I came in pt was sleeping and appeared comfortable. she complains of pain w deep palpation diffusely although she only really grimaces w palpation in the RUQ/epigastric area. This has resolved. Workup is negative, lipase is normal, KUB negative, ultrasound showed hepatic steatosis and biliary sludge. Monitor for now. = Patient continues on H2 evgeny. //Chest pain-could be psychiatric. EKG reviewed no acute findings, no ischemic changes. Troponin negative x2. = 06/22.. D-dimer negative. Serial troponins negative. EKG no change. Appreciate cardiology assistance. Request records from primary civil division deputy sheriff. //Bilateral leg pain. Expect this is secondary to fibromyalgia related to untreated sleep apnea. We'll check ultrasound to rule out DVT. = 06/22. Ultrasound negative for DVT. //CHF: heart healthy diet, fluid restriction 1800ml/day. BB and bumex resumed. = 06/22. Slight bump in creatinine to 1.1. Will liberalize slightly fluid restrictions. Due to monitor. //COPD: stable, on home oxygen. Duoneb prn. home meds resumed //HTN: stable. on home meds. added vasotec IV and clonidine prn for BP's >160/ 90. Continue lisinopril. //Hypovitaminosis D. Continue replacement. //IDDM: on levemir. = Increase Levemir to 16 units twice daily. = 06/22. Glucose in 300s. Switch sliding scale to high dose sliding scale. Continue to monitor. Hardy Rowell MD Jun 22, 2017 17:23
[2017-06-22 17:45] VITALS: O2SAT 97
[2017-06-22 18:00] VITALS: BP 121/56; PULSE 90; RESP 18; TEMP 97.8; O2SAT 97
[2017-06-22 21:03] VITALS: O2SAT 98
[2017-06-23 06:15] VITALS: BP 104/51; PULSE 96; RESP 19; TEMP 97.6; O2SAT 98
[2017-06-23 06:39] LABS: ANION GAP 8 MEQ/L (5-15); BICARBONATE 32.4 MEQ/L (21.0-32.0); BLOOD UREA NITROGEN 21 MG/DL (7-18); CHLORIDE 95 MEQ/L (98-107); GLOMERULAR FILTRATION RATE 76 ML/MIN (>89); SODIUM (NA) 135 MEQ/L (136-145)
[2017-06-23 06:40] LABS: AUTOMATED NEUTROPHIL # 4.4 TH/MM3 (1.8-7.7); BASOPHIL % 0.3 % (0.0-2.0); EOSINOPHIL % 0.6 % (0.0-4.0); HEMATOCRIT 36.5 % (35.0-46.0); HEMO FLAGS DIFF FINAL; LYMPH % 21.7 % (9.0-44.0); LYMPHOCYTE # 1.4 TH/MM3 (1.0-4.8); MEAN CELL VOLUME 96.1 FL (80.0-100.0); MEAN CORPUSCULAR HEMOGLOBIN 32.5 PG (27.0-34.0); MEAN CORPUSCULAR HGB CONC 33.9 % (32.0-36.0); MONO % 7.2 % (0.0-8.0); NEUT % 70.2 % (16.0-70.0); PLATELET COUNT 203 TH/MM3 (150-450); RED BLOOD COUNT 3.79 MIL/MM3 (4.00-5.30); RED CELL DISTRIBUTION WIDTH 14.2 % (11.6-17.2); WHITE BLOOD COUNT 6.3 TH/MM3 (4.0-11.0)
[2017-06-23] MEDS: INSULIN ASPART SUPPLEMENTAL SCALE SQ SCH ×4 (07:40→20:59)
[2017-06-23] MEDS: METOPROLOL TARTRATE 50 MG TAB PO SCH ×3 (07:41→16:32)
[2017-06-23] MEDS: LISINOPRIL 5 MG TAB PO SCH (07:42)
[2017-06-23] MEDS: BUDESONIDE-FORMOTEROL 80/4.5 MCG INHALER INH SCH ×2 (08:38→20:58)
[2017-06-23] MEDS: RIVAROXABAN 20 MG TAB PO SCH (08:39)
[2017-06-23] MEDS: SERTRALINE HCL 50 MG TAB PO SCH (08:39)
[2017-06-23] MEDS: INSULIN DETEMIR 100 UNITS/ML VIAL SQ SCH ×2 (08:39→20:59)
[2017-06-23] MEDS: clonazePAM 0.5 MG TAB PO SCH ×2 (08:39→20:58)
[2017-06-23] MEDS: PALIPERIDONE ER 6 MG TAB PO SCH (08:39)
[2017-06-23] MEDS: DOCUSATE SODIUM 100 MG CAP PO SCH ×2 (08:39→20:58)
[2017-06-23] MEDS: FAMOTIDINE 20 MG TAB PO SCH ×2 (08:39→20:58)
[2017-06-23] MEDS: BUMETANIDE 1 MG TAB PO SCH (08:39)
[2017-06-23] MEDS: SUCRALFATE 1 GM TAB PO SCH ×4 (08:40→20:58)
[2017-06-23] MEDS ORDERED: REGADENOSON INJ 0.4 MG/5 ML SYR IV ONE (11:00)
--- NOTE | 2017-06-23 11:12 | PD.TTN ---
Patient Problems 1. Discharge planning 2. Medication compliance 3. Knowledge deficit 4. Lack of coping skills Progress Toward Goals Provider Present: Dr. Marvin Montelongo Provider Input: 06/23/2017: Per Dr. Montelongo, he would like to try patient without a sitter if no further report of suicidal ideation. Patiet's medication is still be adjusted Patient is a new admission, after assessment a treatment plan and medication needs will be schedule/and adjustments made Nurse(s) Present: Nadir Garay RN Nurse(s) Input: 06/23/2017 Per Ida Gentile RN patient voice that she is having auditory hallucination, states patient is eating and taking her medication Patient is eating meals, medication will be discuss with treating doctor, patient is making suicidal ideation Psychiatric Counselors Present: SCOT Calvillo Psych Therapist Input: 06/23/2017: Counselor has provided patient with a package surrounding mood, and behavior treatment Treatment plan will be developed with patient, patient will be encouraged with mood and group participation Group Spec/RT/OT/ARIAS Present: JUANA Boateng Andrew Harrison, OT Group Spec/RT/OT/ARIAS Input: 06/23/2017; per OT, patient attends selective groups Patent is new activies will be review with patient Documentation Scribe: SCOT Calvillo Sandra LMHC Jun 23, 2017 11:12
[2017-06-23] MEDS: ACETAMINOPHEN/HYDROcodone 325 MG/5 MG TAB PO PRN ×2 (12:05→17:30)
[2017-06-23] MEDS: LORazepam 1 MG TAB PO PRN ×2 (12:05→18:01)
--- NOTE | 2017-06-23 14:41 | HHI.PYPN ---
Subjective Remarks Patient seen a follow up, chart reviewed. Discussion she staff reported that patient had endorsed wanting that she hasn't having auditory hallucinations to cut her wrists which she reported to the one-to-one sitter. Patient is found sitting in hospital bed noted to be guarded and states that her weekend went "so -so", and her mood also was reported to be so-so and continued to report suicidal ideations she last had last night. She states that it lasted for one hour as well as having auditory hallucinations this morning , command type telling her to hurt herself. Patient states that she would like to continue to participate in groups and activities. Patient reports that she continues to feel depressed but feels that the medications are making her feel "different". Review of Systems Except as stated in HPI: all other systems reviewed are Neg Mental Status Examination Appearance: Disheveled Consciousness: Alert Orientation: x4 Motor Activity: Normal gait Speech: Unremarkable Language: Adequate Fund of Knowledge: Adequate Attention and Concentration: Adequate Memory: Unremarkable Mood: Other ("so-so") Affect: Blunt, Other (guarded) Thought Process & Associations: Intact, Linear Thought Content: Hallucinations Hallucination Type: Auditory (command auditory hallucinations to hurt herself) Delusion Type: None, Paranoid Suicidal Ideation: Yes (fleeting) Suicidal Plan: Yes (cut her wrist as stated by her command auditory hallucinations) Suicidal Intention: No Homicidal Ideation: No Homicidal Plan: No Homicidal Intention: No Insight: Fair Judgment: Impulsive Results Labs Labs reviewed Test 06/23/17 05:40 White Blood Count 6.3 TH/MM3 Red Blood Count 3.79 MIL/MM3 Hemoglobin 12.4 GM/DL Hematocrit 36.5 % Mean Corpuscular Volume 96.1 FL Mean Corpuscular Hemoglobin 32.5 PG Mean Corpuscular Hemoglobin Concent 33.9 % Red Cell Distribution Width 14.2 % Platelet Count 203 TH/MM3 Mean Platelet Volume 7.0 FL Neutrophils (%) (Auto) 70.2 % Lymphocytes (%) (Auto) 21.7 % Monocytes (%) (Auto) 7.2 % Eosinophils (%) (Auto) 0.6 % Basophils (%) (Auto) 0.3 % Neutrophils # (Auto) 4.4 TH/MM3 Lymphocytes # (Auto) 1.4 TH/MM3 Monocytes # (Auto) 0.4 TH/MM3 Eosinophils # (Auto) 0.0 TH/MM3 Basophils # (Auto) 0.0 TH/MM3 CBC Comment DIFF FINAL Differential Comment Blood Urea Nitrogen 21 MG/DL Creatinine 0.83 MG/DL Random Glucose 210 MG/DL Albumin 3.4 GM/DL Calcium Level 9.1 MG/DL Phosphorus Level 4.1 MG/DL Magnesium Level 2.0 MG/DL Sodium Level 135 MEQ/L Potassium Level 4.0 MEQ/L Chloride Level 95 MEQ/L Carbon Dioxide Level 32.4 MEQ/L Anion Gap 8 MEQ/L Estimat Glomerular Filtration Rate 76 ML/MIN Troponin I LESS THAN 0.02 NG/ML Vitals/IOs Vital Signs Date Time Temp Pulse Resp B/P (MAP) Pulse Ox O2 Delivery O2 Flow Rate FiO2 06/23/17 07:40 Nasal Cannula 3.00 06/23/17 06:15 97.6 96 19 104/51 (68) 98 Intake and Output 06/23/17 06/23/17 06/24/17 08:00 16:00 00:00 Intake Total 240 ml Balance 240 ml Assessment & Plan Problem List: (1) Adjustment disorder with depressed mood ICD Codes: F43.21 - Adjustment disorder with depressed mood Assessment & Plan Patient this time continues to endorse depressed mood and low stated that intensity has decreased somewhat continues to have suicide ideations and command auditory hallucinations telling her to hurt herself which she last heard this morning telling her to cut her wrists. We'll continue one-to-one observation, we'll increase haloperidol to 90 mg by mouth daily as well as sertraline 75 mg by mouth daily. Continue to monitor mood and behavior. Continue with the medications. Recommendations as per primary medical team. Discharge planning in progress Justification for Cont. Inpt. At risk for further decompensation if at lower level of care Discharge Planning Patient her back to her residence once psychiatrically stable Jah Montelongo MD Jun 23, 2017 14:41
[2017-06-23] MEDS ORDERED: PILL SPLITTER OTHER PRN (14:45)
[2017-06-23 18:06] VITALS: BP 126/58; PULSE 92; RESP 18; TEMP 98.2; O2SAT 99
--- NOTE | 2017-06-23 18:14 | HHI.PR ---
Subjective Remarks Patient says she is feeling all right today. Has no overt complaints. When asked about chest pain, she confirms that sharp left sided as yesterday Objective Vital Signs Date Time Temp Pulse Resp B/P (MAP) Pulse Ox O2 Delivery O2 Flow Rate FiO2 06/23/17 07:40 Nasal Cannula 3.00 06/23/17 06:15 97.6 96 19 104/51 (68) 98 06/22/17 21:03 98 Nasal Cannula 3.00 I/O 06/22/17 06/22/17 06/22/17 06/23/17 06/23/17 06/23/17 07:00 15:00 23:00 07:00 15:00 23:00 Intake Total 1860 ml 240 ml Output Total 700 ml Balance 1160 ml 240 ml Intake Oral 1860 ml 240 ml Output Urine Total 700 ml # Voids 1 2 3 Result Diagram: 06/23/17 0540 06/23/17 0540 Objective Remarks GENERAL: Patient in bed. Appears comfortable. no Change on exam today. SKIN: Warm and dry. HEAD: Normocephalic. EYES: No scleral icterus. No injection or drainage. NECK: Supple, trachea midline. No JVD. CARDIOVASCULAR: Regular rate and rhythm without murmurs, gallops, or rubs. RESPIRATORY: Breath sounds equal bilaterally. No accessory muscle use. GASTROINTESTINAL: Abdomen soft, non-tender, nondistended. MUSCULOSKELETAL: No cyanosis, or edema. Patient reports bilateral leg tenderness to palpation. No erythema. BACK: Nontender without obvious deformity. No CVA tenderness. A/P Assessment and Plan This is a 42-year-old female with suicidal ideation, we were consulted for abdominal pain //Suicidal ideation: with a plan. Management per psychiatry //Abdominal pain:. Resolved. Patient complained of abdominal pain of 9/10 although when I came in pt was sleeping and appeared comfortable. she complains of pain w deep palpation diffusely although she only really grimaces w palpation in the RUQ/epigastric area. This has resolved. Workup is negative, lipase is normal, KUB negative, ultrasound showed hepatic steatosis and biliary sludge. Monitor for now. = Patient continues on H2 evgeny. //Chest pain-could be psychiatric. EKG reviewed no acute findings, no ischemic changes. Troponin negative x2. = 06/22.. D-dimer negative. Serial troponins negative. EKG no change. Appreciate cardiology assistance. Request records from primary quad stayer. = 06/23 Cardiology following. Echocardiogram pending. Outside records pending //Bilateral leg pain. Expect this is secondary to fibromyalgia related to untreated sleep apnea. We'll check ultrasound to rule out DVT. = 06/22. Ultrasound negative for DVT. //CHF: heart healthy diet, fluid restriction 1800ml/day. BB and bumex resumed. = 06/22. Slight bump in creatinine to 1.1. Will liberalize slightly fluid restrictions. Due to monitor. //COPD: stable, on home oxygen. Duoneb prn. home meds resumed //HTN: stable. on home meds. added vasotec IV and clonidine prn for BP's >160/ 90. Continue lisinopril. //Hypovitaminosis D. Continue replacement. //IDDM: on levemir. = Increase Levemir to 16 units twice daily. = 06/22. Glucose in 300s. Switch sliding scale to high dose sliding scale. Continue to monitor. = 06/23. Glucose 120s this morning, temperature. Continue to monitor. Hardy Rowell MD Jun 23, 2017 18:14
[2017-06-23 22:00] VITALS: O2SAT 97
[2017-06-24 05:52] VITALS: BP 110/53; PULSE 97; RESP 16; TEMP 98.4; O2SAT 95
[2017-06-24] MEDS: INSULIN ASPART SUPPLEMENTAL SCALE SQ SCH ×4 (08:00→20:49)
--- NOTE | 2017-06-24 08:23 | HHI.PYPN ---
Subjective Remarks Patient seen follow, chart review. As for this report patient had become anxious last evening which she has stated to the sitter that she had command auditory hallucinations telling him to herself and felt like standing up to go cut her wrists which she was redirected provided with Ativan 1 mg with good response. Patient was found this morning lying in hospital bed asleep was able to wake up to engage in interview today it was noted to be irritable. Patient states the last was "terrible" stating that she was having "voices telling me to hurt myself" and stating that having difficulty ignoring them. Patient continues report having suicidal ideations, denies any allergies adverse drug reactions from medications. Patient scheduled for echocardiogram as per primary medical team. Mental Status Examination Appearance: Disheveled Consciousness: Alert Orientation: x4 Motor Activity: Normal gait Speech: Unremarkable Language: Adequate Fund of Knowledge: Adequate Attention and Concentration: Adequate Memory: Unremarkable Mood: Irritable Affect: Irritable, Other (guarded) Thought Process & Associations: Intact, Linear Thought Content: Hallucinations Hallucination Type: Auditory (command auditory hallucinations to hurt herself) Delusion Type: Paranoid Suicidal Ideation: Yes (fleeting) Suicidal Plan: Yes (cut her wrist as stated by her command auditory hallucinations) Suicidal Intention: No Homicidal Ideation: No Homicidal Plan: No Homicidal Intention: No Insight: Fair Judgment: Impulsive Results Vitals/IOs Vital Signs Date Time Temp Pulse Resp B/P (MAP) Pulse Ox O2 Delivery O2 Flow Rate FiO2 06/24/17 05:52 98.4 97 16 110/53 (72) 95 06/23/17 22:00 Nasal Cannula 2.00 Intake and Output 06/24/17 06/24/17 06/25/17 08:00 16:00 00:00 Intake Total 0 ml Balance 0 ml Assessment & Plan Problem List: (1) Adjustment disorder with depressed mood ICD Codes: F43.21 - Adjustment disorder with depressed mood Assessment & Plan Patient at this time continues to endorse depressed mood along with auditory hallucinations telling her to hurt herself. Patient's will start increase in paliperidone 9 mg by mouth daily as well as increase in sertraline 75 g by mouth daily for depression. Patient continues to endorse suicidal ideations and able to contract for safety. We'll continue to have patient on one-to-one observation. Patient has been noted to participate in some groups. Continue rest of medications as well as recommendations as per primary medical team. Discharge planning in progress Justification for Cont. Inpt. At risk for further decompensation if at lower level of care Discharge Planning Patient to return back to her residence once psychiatrically clear. Jah Montelongo MD Jun 24, 2017 08:23
[2017-06-24] MEDS: DOCUSATE SODIUM 100 MG CAP PO SCH ×2 (09:00→20:50)
[2017-06-24] MEDS: BUDESONIDE-FORMOTEROL 80/4.5 MCG INHALER INH SCH ×2 (09:00→20:50)
[2017-06-24] MEDS ORDERED: PALIPERIDONE ER 9 MG TAB PO SCH (09:00)
[2017-06-24] MEDS: INSULIN DETEMIR 100 UNITS/ML VIAL SQ SCH ×2 (09:00→20:50)
[2017-06-24] MEDS: SUCRALFATE 1 GM TAB PO SCH ×4 (09:00→20:50)
[2017-06-24 09:25] VITALS: O2SAT 98
[2017-06-24] MEDS: RIVAROXABAN 20 MG TAB PO SCH (09:27)
[2017-06-24] MEDS: PALIPERIDONE ER 3 MG TAB PO SCH (09:27)
[2017-06-24] MEDS: BUMETANIDE 1 MG TAB PO SCH (09:27)
[2017-06-24] MEDS: clonazePAM 0.5 MG TAB PO SCH ×2 (09:27→20:50)
[2017-06-24] MEDS: FAMOTIDINE 20 MG TAB PO SCH ×2 (09:27→20:50)
[2017-06-24] MEDS: LISINOPRIL 5 MG TAB PO SCH (09:27)
[2017-06-24] MEDS: METOPROLOL TARTRATE 50 MG TAB PO SCH ×3 (09:27→16:45)
[2017-06-24] MEDS: SERTRALINE HCL 50 MG TAB PO SCH (09:28)
--- NOTE | 2017-06-24 11:04 | RADRPT ---
EXAM DATE/TIME: 06/23/2017 10:44 [facility] COMPARISON: No previous studies available for comparison. INDICATIONS : Midchest pain. Angina. Abnormal EKG. DOSE: 30.1 mCi Tc99m Myoview at stress. 30.2 mCi Tc99m Myoview at rest. 0.4 mg Lexiscan STRESS SYMPTOMS: Shortness of breath. EJECTION FRACTION: > 70% MEDICAL HISTORY : Cardiovascular disease. Hypertension. Congestive heart failure. SURGICAL HISTORY : None. ENCOUNTER: Initial ACUITY: 1 day PAIN SCALE: 4/10 LOCATION: Midsternal chest TECHNIQUE: The patient underwent pharmacologic stress with infusion of prescribed dose. Continuous ECG tracing was monitored during stress. Gated SPECT imaging was performed after stress and conventional SPECT i maging was performed at rest. The examination was performed on a SPECT/CT scanner, both attenuation and non-corrected datasets were reviewed. FINDINGS: DISTRIBUTION: The maximum perfused segment at stress is in the inferior wall. PERFUSION STUDY: There is 10% redistribution involving the anterior wall near the base. No other redistribution observ ed. GATED STUDY: There is intact wall motion and thickening without hypokinetic or dyskinetic segments. CONCLUSION: No reversible defects observed to suggest acute ischemia. RISK CATEGORY: Low Jose Rojas Jr., MD on June 24, 2017 at 10:59 Board Certified Radiologist. This report was verified electronically.
--- NOTE | 2017-06-24 11:49 | HHI.PR ---
Subjective Remarks Had stress test results are normal Patient continues to complain of chest pain appears to be quite atypical in nature since she is swallowing everything on her plate Feel this is more psychiatric than anything Objective Vitals Vital Signs Date Time Temp Pulse Resp B/P (MAP) Pulse Ox O2 Delivery O2 Flow Rate FiO2 06/24/17 09:25 Nasal Cannula 3.00 06/24/17 05:52 98.4 97 16 110/53 (72) 95 06/23/17 22:00 97 Nasal Cannula 2.00 06/23/17 20:00 3.00 06/23/17 18:06 98.2 92 18 126/58 (80) 99 I/O 06/23/17 06/23/17 06/23/17 06/24/17 06/24/17 06/24/17 07:00 15:00 23:00 07:00 15:00 23:00 Intake Total 240 ml 960 ml 0 ml 240 ml Balance 240 ml 960 ml 0 ml 240 ml Intake Oral 240 ml 960 ml 0 ml 240 ml # Voids 3 0 1 Result Diagram: 06/23/17 0540 06/23/17 0540 Other Results Laboratory Tests Test 06/21/17 15:42 06/21/17 16:41 06/21/17 16:44 06/21/17 23:46 Blood Urea Nitrogen 18 MG/DL Creatinine 1.17 MG/DL Random Glucose 241 MG/DL Total Protein 7.1 GM/DL Albumin 3.5 GM/DL Calcium Level 9.1 MG/DL Alkaline Phosphatase 102 U/L Aspartate Amino Transf (AST/SGOT) 23 U/L Alanine Aminotransferase (ALT/SGPT) 58 U/L Total Bilirubin 0.4 MG/DL Sodium Level 134 MEQ/L Potassium Level 4.0 MEQ/L Chloride Level 92 MEQ/L Carbon Dioxide Level 35.7 MEQ/L Anion Gap 6 MEQ/L Estimat Glomerular Filtration Rate 51 ML/MIN Total Creatine Kinase 47 U/L Troponin I LESS THAN 0.02 NG/ML LESS THAN 0.02 NG/ML White Blood Count 7.1 TH/MM3 Red Blood Count 4.05 MIL/MM3 Hemoglobin 13.2 GM/DL Hematocrit 38.7 % Mean Corpuscular Volume 95.6 FL Mean Corpuscular Hemoglobin 32.7 PG Mean Corpuscular Hemoglobin Concent 34.2 % Red Cell Distribution Width 14.7 % Platelet Count 220 TH/MM3 Mean Platelet Volume 7.0 FL Neutrophils (%) (Auto) 70.9 % Lymphocytes (%) (Auto) 21.2 % Monocytes (%) (Auto) 6.8 % Eosinophils (%) (Auto) 0.6 % Basophils (%) (Auto) 0.5 % Neutrophils # (Auto) 5.0 TH/MM3 Lymphocytes # (Auto) 1.5 TH/MM3 Monocytes # (Auto) 0.5 TH/MM3 Eosinophils # (Auto) 0.0 TH/MM3 Basophils # (Auto) 0.0 TH/MM3 CBC Comment DIFF FINAL Differential Comment D-Dimer Quantitative (PE/DVT) LESS THAN 0.19 MG/L FEU Test 06/23/17 05:40 White Blood Count 6.3 TH/MM3 Red Blood Count 3.79 MIL/MM3 Hemoglobin 12.4 GM/DL Hematocrit 36.5 % Mean Corpuscular Volume 96.1 FL Mean Corpuscular Hemoglobin 32.5 PG Mean Corpuscular Hemoglobin Concent 33.9 % Red Cell Distribution Width 14.2 % Platelet Count 203 TH/MM3 Mean Platelet Volume 7.0 FL Neutrophils (%) (Auto) 70.2 % Lymphocytes (%) (Auto) 21.7 % Monocytes (%) (Auto) 7.2 % Eosinophils (%) (Auto) 0.6 % Basophils (%) (Auto) 0.3 % Neutrophils # (Auto) 4.4 TH/MM3 Lymphocytes # (Auto) 1.4 TH/MM3 Monocytes # (Auto) 0.4 TH/MM3 Eosinophils # (Auto) 0.0 TH/MM3 Basophils # (Auto) 0.0 TH/MM3 CBC Comment DIFF FINAL Differential Comment Blood Urea Nitrogen 21 MG/DL Creatinine 0.83 MG/DL Random Glucose 210 MG/DL Albumin 3.4 GM/DL Calcium Level 9.1 MG/DL Phosphorus Level 4.1 MG/DL Magnesium Level 2.0 MG/DL Sodium Level 135 MEQ/L Potassium Level 4.0 MEQ/L Chloride Level 95 MEQ/L Carbon Dioxide Level 32.4 MEQ/L Anion Gap 8 MEQ/L Estimat Glomerular Filtration Rate 76 ML/MIN Troponin I LESS THAN 0.02 NG/ML Imaging Last Impressions Myocardial Perfusion Scan Nuc Med 06/23/17 0000 Signed Impressions: Service Date/Time: Friday, June 23, 2017 10:44 - CONCLUSION: No reversible defects observed to suggest acute ischemia. RISK CATEGORY: Low Jose Rojas Jr., MD Lower Extremity Ultrasound 06/21/17 0000 Signed Impressions: Service Date/Time: Wednesday, June 21, 2017 17:14 - CONCLUSION: No DVT is identified within either lower extremity. Hesham Sykes MD Chest X-Ray 06/21/17 0000 Signed Impressions: Service Date/Time: Wednesday, June 21, 2017 15:22 - CONCLUSION: 1. Hypoinflation with no acute infiltrate. 2. Borderline prominent but well compensated heart Dorian Adamson MD Gall Bladder Ultrasound 06/19/17 0000 Signed Impressions: Service Date/Time: June 08:30 - CONCLUSION: Likely hepatic steatosis. Mild gallbladder sludge Hesham Tomas MD Abdomen X-Ray 06/18/17 0000 Signed Impressions: Service Date/Time: Sunday, June 18, 2017 16:33 - CONCLUSION: 1. Gas distended stomach with an otherwise normal bowel gas pattern. Jose Rojas Jr., MD Objective Remarks GENERAL: Awake alert talkative and cooperative-oriented 3 SKIN: Warm and dry. HEAD: Atraumatic. Normocephalic. Extraocular muscles intact EYES: Pupils equal and round. No scleral icterus. No injection or drainage. Extraocular muscles intact ENT: No nasal bleeding or discharge. Mucous membranes pink and moist. Tongue is midline NECK: Trachea midline. No JVD. Supple CARDIOVASCULAR: Regular rate and rhythm. S1 and S2 no S3 or S4 RESPIRATORY: No accessory muscle use. Clear to auscultation. Breath sounds equal bilaterally. GASTROINTESTINAL: Abdomen soft, non-tender, nondistended. Hepatic and splenic margins not palpable. Obese MUSCULOSKELETAL: Extremities without clubbing, cyanosis, or edema. No obvious deformities. NEUROLOGICAL: Awake and alert. No obvious cranial nerve deficits. Motor grossly within normal limits. Five out of 5 muscle strength in the arms and legs. Normal speech. PSYCHIATRIC: INAppropriate mood and affect; insight and judgment ABnormal. Medications and IVs Current Medications Insulin Human Regular (NovoLIN R INJ) 6 units ONCE ONCE IV PUSH ; Start at 22:45; Stop 06/16/17 at 23:01; Status DC Insulin Human Regular (NovoLIN R INJ) 6 units ONCE ONCE SQ Last administered on 06/16/17t 23:06; Start 06/16/17 at 23:00; Stop 06/16/17 at 23:01; Status DC Al Hydrox/Mg Hydrox/Simethicone (Mag-Al Plus Susp Liq) 30 ml ONCE ONCE PO Last administered on 06/17/17 12:25; Start 06/17/17 at 12:00; Stop 06/17/17 at 12:01; Status DC Lidocaine HCl (Xylocaine 2% Viscous) 15 ml ONCE ONCE PO Last administered on 06/17/17 12:25; Start 06/17/17 at 12:00; Stop 06/17/17 at 12:01; Status DC Lorazepam (Ativan) 1 mg Q6H PRN PO MODERATE TO SEVERE ANXIETY Last administered on 06/23/17 18:01; Start 06/17/17 at 15:00 Lorazepam (Ativan Inj) 1 mg Q6H PRN IM MODERATE TO SEVERE ANXIETY; Start at 15:00 Diphenhydramine HCl (Benadryl) 50 mg Q6H PRN PO For mild anxiety and/or EPS; Start 06/17/17 at 15:00 Diphenhydramine HCl (Benadryl Inj) 50 mg Q6H PRN IM For mild anxiety and/or EPS ; Start 06/17/17 at 15:00 Acetaminophen (Tylenol) 650 mg Q4H PRN PO Temp >101F Last administered on 06/20 21:09; Start 06/17/17 at 15:00 Magnesium Hydroxide (Milk Of Magnesia Liq) 30 ml DAILY PRN PO CONSTIPATION; Start 06/17/17 at 15:00; Stop 06/17/17 at 15:04; Status DC Al Hydrox/Mg Hydrox/Simethicone (Mag-Al Plus Susp Liq) 30 ml Q6H PRN PO DYSPEPSIA; Start 06/17/17 at 15:00 Bisacodyl (Dulcolax Supp) 10 mg DAILY PRN RECTAL CONSTIPATION; Start 06/17/17 at 15:00 Budesonide/ Formoterol Fumarate (Symbicort 80-4.5 Mcg Inh) 2 puff Q12HR INH Last administered on 06/24/17 09:00; Start 06/17/17 at 21:00 Bumetanide (Bumetanide) 1 mg DAILY PO Last administered on 06/24/17 09:27; Start 06/18/17 at 09:00 Clonazepam (KlonoPIN) 0.5 mg BID PO Last administered on 06/24/17 09:27; Start 06/17/17 at 21:00 Famotidine (Pepcid) 20 mg BID PO Last administered on 06/24/17 09:27; Start 06/17/17 at 21:00 Acetaminophen/ Hydrocodone Bitart ([place] 5-325 Mg) 1 tab Q4H PRN PO PAIN SCALE 1-10 Last administered on 06/23/17 17:30; Start 06/17/17 at 15:00 Insulin Detemir (Levemir Inj) 10 units BID SQ Last administered on 06/19/17 09 :17; Start 06/17/17 at 21:00; Stop 06/19/17 at 14:37; Status DC Magnesium Hydroxide (Milk Of Magnesia Liq) 60 ml DAILY PRN PO INDIGESTION; Start 06/17/17 at 15:00 Metoprolol Tartrate (Lopressor) 50 mg TID PO Last administered on 06/24/17 11 :36; Start 06/17/17 at 18:00 Rivaroxaban (Xarelto) 20 mg DAILY PO Last administered on 06/24/17 09:27; Start 06/18/17 at 09:00 Sucralfate (Carafate) 1 gm QID PO Last administered on 06/24/17 11:35; Start 06/17/17 at 18:00 Ziprasidone (Geodon) 80 mg BID PO Last administered on 06/18/17 08:04; Start 06/17/17 at 21:00; Stop 06/18/17 at 13:44; Status DC Ziprasidone (Geodon) 60 mg BID PO Last administered on 06/19/17 08:54; Start 06/18/17 at 21:00; Stop 06/19/17 at 12:44; Status DC Paliperidone Palmitate (Invega Er) 3 mg DAILY PO Last administered on 08:51; Start 06/19/17 at 09:00; Stop 06/19/17 at 12:44; Status DC Dextrose (D50w (Syr) Inj) 50 ml UNSCH PRN IV PUSH HYPOGLYCEMIA-SEE COMMENTS; Start 06/18/17 at 15:45 Glucagon (Glucagon Inj) 1 mg UNSCH PRN OTHER HYPOGLYCEMIA-SEE COMMENTS; Start 06/18/17 at 15:45 Insulin Aspart (NovoLOG SUPPLEMENTAL SCALE) 1 ACHS SLIDING SCALE SQ Last administered on 06/22/17 16:38; Start 06/18/17 at 17:00; Stop 06/22/17 at 17: 21; Status DC Albuterol/ Ipratropium (Duoneb Neb) 1 ampule Q6HR NEB PRN NEB SOB/WHEEZING; Start 06/18/17 at 16:15 Enalaprilat (Vasotec Inj) 1.25 mg Q6H PRN IV PUSH SBP>160, DBP>90; Start at 16:15 Clonidine (Catapres) 0.1 mg Q6H PRN PO SBP>160, DBP>90; Start 06/18/17 at 16:15 Lisinopril (Prinivil) 5 mg DAILY PO Last administered on 06/24/17 09:27; Start 06/19/17 at 09:00 Paliperidone Palmitate (Invega Er) 6 mg DAILY PO Last administered on 08:14; Start 06/20/17 at 09:00; Stop 06/21/17 at 11:41; Status DC Ziprasidone (Geodon) 40 mg BID PO Last administered on 06/19/17 20:27; Start 06/19/17 at 21:00; Stop 06/20/17 at 07:02; Status DC Paliperidone Palmitate (Invega Er) 3 mg ONCE ONCE PO Last administered on 06/19 14:48; Start 06/19/17 at 13:15; Stop 06/19/17 at 13:16; Status DC Docusate Sodium (Colace) 100 mg BID PO Last administered on 06/24/17 09:00; Start 06/19/17 at 14:00 Insulin Detemir (Levemir Inj) 14 units BID SQ Last administered on 06/21/17 08:15; Start 06/19/17 at 21:00; Stop 06/21/17 at 08:40; Status DC Aspirin (Aspirin) 325 mg ONCE ONCE PO Last administered on 06/19/17 15:19; Start 06/19/17 at 14:45; Stop 06/19/17 at 14:46; Status DC Docusate Sodium (Colace) 100 mg BID PO ; Start 06/19/17 at 21:00; Stop 06/19/17 at 21:00; Status DC Ziprasidone (Geodon) 20 mg BID PO Last administered on 06/21/17 08:15; Start 06/20/17 at 09:00; Stop 06/21/17 at 09:00; Status DC Sertraline HCl (Zoloft) 50 mg DAILY PO Last administered on 06/23/17 08:39; Start 06/20/17 at 09:00; Stop 06/23/17 at 14:31; Status DC Ergocalciferol (Drisdol) 50,000 units Q7D PO Last administered on 06/20/17 12 :11; Start 06/20/17 at 11:00; Stop 08/08/17 at 11:01 Sodium Chloride ([place] Sai Belk) 2 spray Q4H PRN EACH NARE NASAL CONGESTION; Start 06/20/17 at 11:00 Insulin Detemir (Levemir Inj) 16 units BID SQ Last administered on 06/24/17 09:00; Start 06/21/17 at 09:00 Paliperidone Palmitate (Invega Er) 6 mg DAILY PO Last administered on 08:39; Start 06/22/17 at 09:00; Stop 06/23/17 at 14:31; Status DC Morphine Sulfate (Morphine Inj) 2 mg ONCE ONCE IV Last administered on 20:45; Start 06/21/17 at 20:45; Stop 06/21/17 at 20:46; Status DC Enoxaparin Sodium (Lovenox Inj) 120 mg ONCE ONCE SQ Last administered on 06/22 01:30; Start 06/22/17 at 01:30; Stop 06/22/17 at 01:31; Status DC Sodium Chloride 250 ml @ 250 mls/hr BOLUS ONCE IV ; Start 06/22/17 at 10:30; Stop 06/22/17 at 11:29; Status DC Insulin Aspart (NovoLOG SUPPLEMENTAL SCALE) 1 ACHS SLIDING SCALE SQ Last administered on 06/24/17 08:00; Start 06/22/17 at 21:00 Regadenoson (Lexiscan Inj) 0.4 mg STK-MED ONCE IV Last administered on 11:00; Start 06/23/17 at 11:00; Stop 06/23/17 at 11:01; Status DC Paliperidone Palmitate (Invega Er) 9 mg DAILY PO ; Start 06/24/17 at 09:00; Stop 06/24/17 at 09:00; Status DC Sertraline HCl (Zoloft) 75 mg DAILY PO Last administered on 06/24/17 09:28; Start 06/24/17 at 09:00 Miscellaneous (Pill Splitter) 1 ea UNSCH PRN OTHER SEE LABEL COMMENTS; Start 06/23/17 at 14:45 Paliperidone Palmitate (Invega Er) 9 mg DAILY PO Last administered on 09:27; Start 06/24/17 at 09:00 A/P Assessment and Plan This is a 42-year-old female with suicidal ideation, we were consulted for abdominal pain //Suicidal ideation: with a plan. Management per psychiatry //Abdominal pain:. Resolved. Patient complained of abdominal pain of 04/20 although when I came in pt was sleeping and appeared comfortable. she complains of pain w deep palpation diffusely although she only really grimaces w palpation in the RUQ/epigastric area. This has resolved. Workup is negative, lipase is normal, KUB negative, ultrasound showed hepatic steatosis and biliary sludge. Monitor for now. = Patient continues on H2 evgeny. //Chest pain-could be psychiatric. EKG reviewed no acute findings, no ischemic changes. Troponin negative x2. = 06/22.. D-dimer negative. Serial troponins negative. EKG no change. Appreciate cardiology assistance. Request records from primary hr generalist. = 06/23 Cardiology following. Echocardiogram pending. Outside records pending 06-14 had stress test- EF IS 70% //Bilateral leg pain. Expect this is secondary to fibromyalgia related to untreated sleep apnea. We'll check ultrasound to rule out DVT. = 06/22. Ultrasound negative for DVT. //CHF: heart healthy diet, fluid restriction 1800ml/day. BB and bumex resumed. = 06/22. Slight bump in creatinine to 1.1. Will liberalize slightly fluid restrictions. Due to monitor. //COPD: stable, on home oxygen. Duoneb prn. home meds resumed //HTN: stable. on home meds. added vasotec IV and clonidine prn for BP's >160/ 90. Continue lisinopril. //Hypovitaminosis D. Continue replacement. //IDDM: on levemir. = Increase Levemir to 16 units twice daily. = 06/22. Glucose in 300s. Switch sliding scale to high dose sliding scale. Continue to monitor. = 06/23. Glucose 120s this morning, temperature. Continue to monitor. MALIGNANT MEDICAL NONCOMPLIANCE- APPEARS TO LIKE TO BE IN THE HOSPITAL Obesity recommend weight loss Discharge Planning Has chronic pain that I will never fix Anurag Mcdaniels DO Jun 24, 2017 11:49
--- NOTE | 2017-06-24 16:55 | ECHRPT ---
Indication: Coronary Atherosclerosis CONCLUSIONS Normal left ventricular size. Wall thickness is normal. The left ventricular systolic function is low normal with an estimated ejection fraction in the rang e of 50- 55%. BP: 132 / 82 HR: 72 Rhythm: MEASUREMENTS (Male / Female) Normal Values Technical Quality:Fair 2D ECHO LV Diastolic Diameter PLAX 4.2 cm 4.2 - 5.9 / 3.9 - 5.3 cm LV Systolic Diameter PLAX 3.5 cm IVS Diastolic Thickness 1.0 cm 0.6 - 1.0 / 0.6 - 0.9 cm LVPW Diastolic Thickness 0.7 cm 0.6 - 1.0 / 0.6 - 0.9 cm LV Relative Wall Thickness 0.4 RV Internal Dim ED PLAX 2.0 cm LA Systolic Diameter LX 3.6 cm 3.0 - 4.0 / 2.7 - 3.8 cm DOPPLER Mitral E Point Velocity 88.4 cm/s Mitral A Point Velocity 63.7 cm/s Mitral E to A Ratio 1.4 TR Peak Velocity 221.0 cm/s TR Peak Gradient 19.5 mmHg Right Atrial Pressure 10.0 mmHg Pulmonary Artery Systolic Pressu 29.5 mmHg Right Ventricular Systolic Press 29.5 mmHg FINDINGS LEFT VENTRICLE Normal left ventricular size. Wall thickness is normal. The left ventricular systolic function is low normal with an estimated ejection fraction in the rang e of 50- 55%. RIGHT VENTRICLE Normal right ventricular size and systolic function. LEFT ATRIUM The left atrial size is normal. RIGHT ATRIUM The right atrial size is normal. ATRIAL SEPTUM Normal atrial septal thickness without atrial level shunting by limited color doppler interrogation. AORTA The aortic root and proximal ascending aorta are normal in size on limited imaging. MITRAL VALVE Structurally normal mitral valve. No mitral valve stenosis or regurgitation. AORTIC VALVE Trileaflet aortic valve. No aortic valve stenosis or regurgitation. TRICUSPID VALVE Structurally normal tricuspid valve. No tricuspid valve stenosis or regurgitation. PULMONARY VALVE No pulmonary valve regurgitation or stenosis. VESSELS The inferior vena cava is normal in size. PERICARDIUM No pericardial effusion. Lj Guerin MD, FACC (Electronically Signed) Final Date:24 June 2017 16:55
[2017-06-24 18:00] VITALS: BP 110/54; PULSE 91; RESP 18; TEMP 99.1; O2SAT 98
[2017-06-24] MEDS: LORazepam 1 MG TAB PO PRN (20:50)
[2017-06-25 06:00] VITALS: BP 113/52; PULSE 83; RESP 16; TEMP 98; O2SAT 98
[2017-06-25] MEDS: INSULIN ASPART SUPPLEMENTAL SCALE SQ SCH ×4 (08:00→22:52)
[2017-06-25] MEDS: LORazepam 1 MG TAB PO PRN (08:19)
[2017-06-25] MEDS: PALIPERIDONE ER 3 MG TAB PO SCH (08:19)
[2017-06-25] MEDS: SUCRALFATE 1 GM TAB PO SCH ×4 (08:20→21:00)
[2017-06-25] MEDS: RIVAROXABAN 20 MG TAB PO SCH (08:20)
[2017-06-25] MEDS: BUMETANIDE 1 MG TAB PO SCH (08:20)
[2017-06-25] MEDS: clonazePAM 0.5 MG TAB PO SCH ×2 (08:20→22:48)
[2017-06-25] MEDS: FAMOTIDINE 20 MG TAB PO SCH ×2 (08:20→22:48)
[2017-06-25] MEDS: LISINOPRIL 5 MG TAB PO SCH (08:20)
[2017-06-25] MEDS: METOPROLOL TARTRATE 50 MG TAB PO SCH ×3 (08:20→18:00)
[2017-06-25] MEDS: SERTRALINE HCL 50 MG TAB PO SCH (08:20)
[2017-06-25] MEDS: DOCUSATE SODIUM 100 MG CAP PO SCH ×2 (08:20→22:48)
[2017-06-25] MEDS: BUDESONIDE-FORMOTEROL 80/4.5 MCG INHALER INH SCH ×2 (08:21→21:00)
[2017-06-25] MEDS: INSULIN DETEMIR 100 UNITS/ML VIAL SQ SCH ×2 (08:21→22:53)
[2017-06-25 09:02] VITALS: O2SAT 94
--- NOTE | 2017-06-25 11:23 | HHI.PYPN ---
Subjective Remarks Patient seen follow, chart review. Discussion with nursing staff reports the patient hasn't been compliant continues to report suicidal ideations and command auditory hallucinations to kill herself; attending groups. Patient found lying in hospital bed superficially cooperative and guarded. Patient states that she had a stress test done yesterday by medical team which she states went well. Patient reports her mood being "so-so" but continues to report feeling depressed 9 out of 10 (10 being its worst), as well as command auditory hallucinations to hurt herself. Patient states that besides having the command auditory hallucinations to hurt herself she feels that she wants to hurt herself. Patient states that her medications have been helpful but was unable to elaborate how they have been helpful. 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 Review of Systems Except as stated in HPI: all other systems reviewed are Neg Mental Status Examination Appearance: Disheveled Consciousness: Alert Orientation: x4 Motor Activity: Normal gait Speech: Unremarkable Language: Adequate Fund of Knowledge: Adequate Attention and Concentration: Adequate Memory: Unremarkable Mood: Irritable Affect: Blunt Thought Process & Associations: Intact, Linear Thought Content: Hallucinations Hallucination Type: Auditory (command auditory hallucinations to hurt herself) Delusion Type: Paranoid Suicidal Ideation: Yes (fleeting) Suicidal Plan: Yes (cut her wrist as stated by her command auditory hallucinations) Suicidal Intention: No Homicidal Ideation: No Homicidal Plan: No Homicidal Intention: No Insight: Fair Judgment: Impulsive Results Vitals/IOs Vital Signs Date Time Temp Pulse Resp B/P (MAP) Pulse Ox O2 Delivery O2 Flow Rate FiO2 06/25/17 09:02 94 Nasal Cannula 3.00 06/25/17 06:00 98.0 83 16 113/52 (72) Intake and Output 06/25/17 06/25/17 06/26/17 08:00 16:00 00:00 Intake Total 0 ml Balance 0 ml Assessment & Plan Problem List: (1) Adjustment disorder with depressed mood ICD Codes: F43.21 - Adjustment disorder with depressed mood Assessment & Plan Patient this time continues to endorse feeling depressed, as will as command auditory hallucination to hurt herself which have not decrease in intensity and continues to report that she feels like she wants to hurt herself. At this time patient has been on one-to-one observation and will be moved to 2700 unit in a single room with camera monitoring at all times. We'll increase haloperidol to 12 mg by mouth daily for psychosis. Continue rest of medications. Recommendations as per primary medical team. Discharge planning in progress Justification for Cont. Inpt. At risk for further decompensation if at lower level of care Discharge Planning Patient to return back to her residence once psychiatrically stable Jah Montelongo MD Jun 25, 2017 11:23
[2017-06-25] MEDS ORDERED: PALIPERIDONE ER 3 MG TAB PO ONE (11:30)
--- NOTE | 2017-06-25 11:46 | PD.TTN ---
Patient Problems 1. Discharge planning 2. Medication compliance 3. Knowledge deficit 4. Lack of coping skills Progress Toward Goals Provider Present: Dr. Marvin Montelongo Provider Input: 06/25/2017 @ 8am per doctor patient continues with SI behavior, and could benefit from a different setting; patient's medication continues to be monitor and adjustment made as needed. 06/23/2017: Per Dr. Montelongo, he would like to try patient without a sitter if no further report of suicidal ideation. Patiet's medication is still be adjusted Patient is a new admission, after assessment a treatment plan and medication needs will be schedule/and adjustments made Nurse(s) Present: ZAIN Metcalf Nurse(s) Input: 06/25/2017 @ 8am; patient is bieng transferred to [facility] for more monitoring. Patient is eating and taking her medication; however she continue to verbalize SI 06/23/2017 Per Ida Gentile RN patient voice that she is having auditory hallucination, states patient is eating and taking her medication Patient is eating meals, medication will be discuss with treating doctor, patient is making suicidal ideation Psychiatric Counselors Present: [facility] Salazar [facility] Input: 06/25/2017; counselor will continue to review behavior and SI contract with patient; Level I and 3008 has been updated and fax to [facility] 06/23/2017: Counselor has provided patient with a package surrounding mood, and behavior treatment Treatment plan will be developed with patient, patient will be encouraged with mood and group participation Group Spec/RT/OT/ARIAS Present: JUANA Boateng, Laureano Rodríguez, OT Group Spec/RT/OT/ARIAS Input: 06/25/2017; per OT, patient continues to attend selective groups 06/23/2017; per OT, patient attend selective groups Patent is new activies will be review with patient Documentation Scribe: Skylar Soliman Skylar Rod LIVE Jun 25, 2017 11:46
--- NOTE | 2017-06-25 15:11 | HHI.PR ---
Subjective Remarks Had stress test results are normal Patient continues to complain of chest pain appears to be quite atypical in nature since she is swallowing everything on her plate Feel this is more psychiatric than anything 06-25 COMPLAINS OF CHEST PAIN ALL THE TIME- STRESS TEST IS NEGATIVE SEEN WATCHING A MOVIE DW RN AND PT NO NEW COMPLAINTS Objective Vitals Vital Signs Date Time Temp Pulse Resp B/P (MAP) Pulse Ox O2 Delivery O2 Flow Rate FiO2 06/25/17 09:02 94 Nasal Cannula 3.00 06/25/17 06:00 98.0 83 16 113/52 (72) 98 06/24/17 22:34 Nasal Cannula 3.00 06/24/17 21:46 Nasal Cannula 3.00 06/24/17 18:00 99.1 91 18 110/54 (72) 98 I/O 06/24/17 06/24/17 06/24/17 06/25/17 06/25/17 06/25/17 07:00 15:00 23:00 07:00 15:00 23:00 Intake Total 0 ml 480 ml 1440 ml 0 ml Balance 0 ml 480 ml 1440 ml 0 ml Intake Oral 0 ml 480 ml 1440 ml 0 ml # Voids 1 6 0 Result Diagram: 06/23/17 0540 06/23/17 0540 Other Results Laboratory Tests Test 06/23/17 05:40 White Blood Count 6.3 TH/MM3 Red Blood Count 3.79 MIL/MM3 Hemoglobin 12.4 GM/DL Hematocrit 36.5 % Mean Corpuscular Volume 96.1 FL Mean Corpuscular Hemoglobin 32.5 PG Mean Corpuscular Hemoglobin Concent 33.9 % Red Cell Distribution Width 14.2 % Platelet Count 203 TH/MM3 Mean Platelet Volume 7.0 FL Neutrophils (%) (Auto) 70.2 % Lymphocytes (%) (Auto) 21.7 % Monocytes (%) (Auto) 7.2 % Eosinophils (%) (Auto) 0.6 % Basophils (%) (Auto) 0.3 % Neutrophils # (Auto) 4.4 TH/MM3 Lymphocytes # (Auto) 1.4 TH/MM3 Monocytes # (Auto) 0.4 TH/MM3 Eosinophils # (Auto) 0.0 TH/MM3 Basophils # (Auto) 0.0 TH/MM3 CBC Comment DIFF FINAL Differential Comment Blood Urea Nitrogen 21 MG/DL Creatinine 0.83 MG/DL Random Glucose 210 MG/DL Albumin 3.4 GM/DL Calcium Level 9.1 MG/DL Phosphorus Level 4.1 MG/DL Magnesium Level 2.0 MG/DL Sodium Level 135 MEQ/L Potassium Level 4.0 MEQ/L Chloride Level 95 MEQ/L Carbon Dioxide Level 32.4 MEQ/L Anion Gap 8 MEQ/L Estimat Glomerular Filtration Rate 76 ML/MIN Troponin I LESS THAN 0.02 NG/ML Imaging Last Impressions Myocardial Perfusion Scan Nuc Med 06/23/17 0000 Signed Impressions: Service Date/Time: Friday, June 23, 2017 10:44 - CONCLUSION: No reversible defects observed to suggest acute ischemia. RISK CATEGORY: Low Jose Rojas Jr., MD Lower Extremity Ultrasound 06/21/17 0000 Signed Impressions: Service Date/Time: Wednesday, June 21, 2017 17:14 - CONCLUSION: No DVT is identified within either lower extremity. Hesham Sykes MD Chest X-Ray 06/21/17 0000 Signed Impressions: Service Date/Time: Wednesday, June 21, 2017 15:22 - CONCLUSION: 1. Hypoinflation with no acute infiltrate. 2. Borderline prominent but well compensated heart Dorian Adamson MD Gall Bladder Ultrasound 06/19/17 0000 Signed Impressions: Service Date/Time: June 08:30 - CONCLUSION: Likely hepatic steatosis. Mild gallbladder sludge Hesham Tomas MD Abdomen X-Ray 06/18/17 0000 Signed Impressions: Service Date/Time: Sunday, June 18, 2017 16:33 - CONCLUSION: 1. Gas distended stomach with an otherwise normal bowel gas pattern. Jose Rojas Jr., MD Objective Remarks GENERAL: Awake alert talkative and cooperative-oriented 3 SKIN: Warm and dry. HEAD: Atraumatic. Normocephalic. Extraocular muscles intact EYES: Pupils equal and round. No scleral icterus. No injection or drainage. Extraocular muscles intact ENT: No nasal bleeding or discharge. Mucous membranes pink and moist. Tongue is midline NECK: Trachea midline. No JVD. Supple CARDIOVASCULAR: Regular rate and rhythm. S1 and S2 no S3 or S4 RESPIRATORY: No accessory muscle use. Clear to auscultation. Breath sounds equal bilaterally. GASTROINTESTINAL: Abdomen soft, non-tender, nondistended. Hepatic and splenic margins not palpable. Obese MUSCULOSKELETAL: Extremities without clubbing, cyanosis, or edema. No obvious deformities. NEUROLOGICAL: Awake and alert. No obvious cranial nerve deficits. Motor grossly within normal limits. Five out of 5 muscle strength in the arms and legs. Normal speech. PSYCHIATRIC: INAppropriate mood and affect; insight and judgment ABnormal. Procedures NONE Medications and IVs Current Medications Insulin Human Regular (NovoLIN R INJ) 6 units ONCE ONCE IV PUSH ; Start at 22:45; Stop 06/16/17 at 23:01; Status DC Insulin Human Regular (NovoLIN R INJ) 6 units ONCE ONCE SQ Last administered on 06/16/17 23:06; Start 06/16/17 at 23:00; Stop 06/16/17 at 23:01; Status DC Al Hydrox/Mg Hydrox/Simethicone (Mag-Al Plus Susp Liq) 30 ml ONCE ONCE PO Last administered on 06/17/17 12:25; Start 06/17/17 at 12:00; Stop 06/17/17 at 12:01; Status DC Lidocaine HCl (Xylocaine 2% Viscous) 15 ml ONCE ONCE PO Last administered on 06/17/17 12:25; Start 06/17/17 at 12:00; Stop 06/17/17 at 12:01; Status DC Lorazepam (Ativan) 1 mg Q6H PRN PO MODERATE TO SEVERE ANXIETY Last administered on 06/25/17 08:19; Start 06/17/17 at 15:00 Lorazepam (Ativan Inj) 1 mg Q6H PRN IM MODERATE TO SEVERE ANXIETY; Start at 15:00 Diphenhydramine HCl (Benadryl) 50 mg Q6H PRN PO For mild anxiety and/or EPS; Start 06/17/17 at 15:00 Diphenhydramine HCl (Benadryl Inj) 50 mg Q6H PRN IM For mild anxiety and/or EPS ; Start 06/17/17 at 15:00 Acetaminophen (Tylenol) 650 mg Q4H PRN PO Temp >101F Last administered on 06/20 21:09; Start 06/17/17 at 15:00 Magnesium Hydroxide (Milk Of Magnesia Liq) 30 ml DAILY PRN PO CONSTIPATION; Start 06/17/17 at 15:00; Stop 06/17/17 at 15:04; Status DC Al Hydrox/Mg Hydrox/Simethicone (Mag-Al Plus Susp Liq) 30 ml Q6H PRN PO DYSPEPSIA; Start 06/17/17 at 15:00 Bisacodyl (Dulcolax Supp) 10 mg DAILY PRN RECTAL CONSTIPATION; Start 06/17/17 at 15:00 Budesonide/ Formoterol Fumarate (Symbicort 80-4.5 Mcg Inh) 2 puff Q12HR INH Last administered on 06/25/17 08:21; Start 06/17/17 at 21:00 Bumetanide (Bumetanide) 1 mg DAILY PO Last administered on 06/25/17 08:20; Start 06/18/17 at 09:00 Clonazepam (KlonoPIN) 0.5 mg BID PO Last administered on 06/25/17 08:20; Start 06/17/17 at 21:00 Famotidine (Pepcid) 20 mg BID PO Last administered on 06/25/17 08:20; Start 06/17/17 at 21:00 Acetaminophen/ Hydrocodone Bitart ([place] 5-325 Mg) 1 tab Q4H PRN PO PAIN SCALE 1-10 Last administered on 06/23/17 17:30; Start 06/17/17 at 15:00 Insulin Detemir (Levemir Inj) 10 units BID SQ Last administered on 06/19/17 09 :17; Start 06/17/17 at 21:00; Stop 06/19/17 at 14:37; Status DC Magnesium Hydroxide (Milk Of Magnesia Liq) 60 ml DAILY PRN PO INDIGESTION; Start 06/17/17 at 15:00 Metoprolol Tartrate (Lopressor) 50 mg TID PO Last administered on 06/25/17 12 :23; Start 06/17/17 at 18:00 Rivaroxaban (Xarelto) 20 mg DAILY PO Last administered on 06/25/17 08:20; Start 06/18/17 at 09:00 Sucralfate (Carafate) 1 gm QID PO Last administered on 06/25/17 12:23; Start 06/17/17 at 18:00 Ziprasidone (Geodon) 80 mg BID PO Last administered on 06/18/17 08:04; Start 06/17/17 at 21:00; Stop 06/18/17 at 13:44; Status DC Ziprasidone (Geodon) 60 mg BID PO Last administered on 06/19/17 08:54; Start 06/18/17 at 21:00; Stop 06/19/17 at 12:44; Status DC Paliperidone Palmitate (Invega Er) 3 mg DAILY PO Last administered on 08:51; Start 06/19/17 at 09:00; Stop 06/19/17 at 12:44; Status DC Dextrose (D50w (Syr) Inj) 50 ml UNSCH PRN IV PUSH HYPOGLYCEMIA-SEE COMMENTS; Start 06/18/17 at 15:45 Glucagon (Glucagon Inj) 1 mg UNSCH PRN OTHER HYPOGLYCEMIA-SEE COMMENTS; Start 06/18/17 at 15:45 Insulin Aspart (NovoLOG SUPPLEMENTAL SCALE) 1 ACHS SLIDING SCALE SQ Last administered on 06/22/17 16:38; Start 06/18/17 at 17:00; Stop 06/22/17 at 17: 21; Status DC Albuterol/ Ipratropium (Duoneb Neb) 1 ampule Q6HR NEB PRN NEB SOB/WHEEZING; Start 06/18/17 at 16:15 Enalaprilat (Vasotec Inj) 1.25 mg Q6H PRN IV PUSH SBP>160, DBP>90; Start at 16:15 Clonidine (Catapres) 0.1 mg Q6H PRN PO SBP>160, DBP>90; Start 06/18/17 at 16:15 Lisinopril (Prinivil) 5 mg DAILY PO Last administered on 06/25/17 08:20; Start 06/19/17 at 09:00 Paliperidone Palmitate (Invega Er) 6 mg DAILY PO Last administered on 08:14; Start 06/20/17 at 09:00; Stop 06/21/17 at 11:41; Status DC Ziprasidone (Geodon) 40 mg BID PO Last administered on 06/19/17 20:27; Start 06/19/17 at 21:00; Stop 06/20/17 at 07:02; Status DC Paliperidone Palmitate (Invega Er) 3 mg ONCE ONCE PO Last administered on 06/19 14:48; Start 06/19/17 at 13:15; Stop 06/19/17 at 13:16; Status DC Docusate Sodium (Colace) 100 mg BID PO Last administered on 06/25/17 08:20; Start 06/19/17 at 14:00 Insulin Detemir (Levemir Inj) 14 units BID SQ Last administered on 06/21/17 08:15; Start 06/19/17 at 21:00; Stop 06/21/17 at 08:40; Status DC Aspirin (Aspirin) 325 mg ONCE ONCE PO Last administered on 06/19/17 15:19; Start 06/19/17 at 14:45; Stop 06/19/17 at 14:46; Status DC Docusate Sodium (Colace) 100 mg BID PO ; Start 06/19/17 at 21:00; Stop 06/19/17 at 21:00; Status DC Ziprasidone (Geodon) 20 mg BID PO Last administered on 06/21/17 08:15; Start 06/20/17 at 09:00; Stop 06/21/17 at 09:00; Status DC Sertraline HCl (Zoloft) 50 mg DAILY PO Last administered on 06/23/17 08:39; Start 06/20/17 at 09:00; Stop 06/23/17 at 14:31; Status DC Ergocalciferol (Drisdol) 50,000 units Q7D PO Last administered on 06/20/17 12 :11; Start 06/20/17 at 11:00; Stop 08/08/17 at 11:01 Sodium Chloride ([place]) 2 spray Q4H PRN EACH NARE NASAL CONGESTION; Start 06/20/17 at 11:00 Insulin Detemir (Levemir Inj) 16 units BID SQ Last administered on 06/24/17 09:00; Start 06/21/17 at 09:00; Stop 06/24/17 at 11:51; Status DC Paliperidone Palmitate (Invega Er) 6 mg DAILY PO Last administered on 08:39; Start 06/22/17 at 09:00; Stop 06/23/17 at 14:31; Status DC Morphine Sulfate (Morphine Inj) 2 mg ONCE ONCE IV Last administered on 20:45; Start 06/21/17 at 20:45; Stop 06/21/17 at 20:46; Status DC Enoxaparin Sodium (Lovenox Inj) 120 mg ONCE ONCE SQ Last administered on 06/22 01:30; Start 06/22/17 at 01:30; Stop 06/22/17 at 01:31; Status DC Sodium Chloride 250 ml @ 250 mls/hr BOLUS ONCE IV ; Start 06/22/17 at 10:30; Stop 06/22/17 at 11:29; Status DC Insulin Aspart (NovoLOG SUPPLEMENTAL SCALE) 1 ACHS SLIDING SCALE SQ Last administered on 06/25/17 12:00; Start 06/22/17 at 21:00 Regadenoson (Lexiscan Inj) 0.4 mg STK-MED ONCE IV Last administered on 11:00; Start 06/23/17 at 11:00; Stop 06/23/17 at 11:01; Status DC Paliperidone Palmitate (Invega Er) 9 mg DAILY PO ; Start 06/24/17 at 09:00; Stop 06/24/17 at 09:00; Status DC Sertraline HCl (Zoloft) 75 mg DAILY PO Last administered on 06/25/17 08:20; Start 06/24/17 at 09:00 Miscellaneous (Pill Splitter) 1 ea UNSCH PRN OTHER SEE LABEL COMMENTS; Start 06/23/17 at 14:45 Paliperidone Palmitate (Invega Er) 9 mg DAILY PO Last administered on 08:19; Start 06/24/17 at 09:00; Stop 06/25/17 at 11:23; Status DC Insulin Detemir (Levemir Inj) 20 units BID SQ Last administered on 06/25/17 08:21; Start 06/24/17 at 21:00 Paliperidone Palmitate (Invega Er) 12 mg DAILY PO ; Start 06/26/17 at 09:00 Paliperidone Palmitate (Invega Er) 3 mg ONCE ONCE PO Last administered on 11:30; Start 06/25/17 at 11:30; Stop 06/25/17 at 11:31; Status DC A/P Assessment and Plan This is a 42-year-old female with suicidal ideation, we were consulted for abdominal pain //Suicidal ideation: with a plan. Management per psychiatry //Abdominal pain:. Resolved. Patient complained of abdominal pain of 9/10 although when I came in pt was sleeping and appeared comfortable. she complains of pain w deep palpation diffusely although she only really grimaces w palpation in the RUQ/epigastric area. This has resolved. Workup is negative, lipase is normal, KUB negative, ultrasound showed hepatic steatosis and biliary sludge. Monitor for now. = Patient continues on H2 evgeny. //Chest pain-could be psychiatric. EKG reviewed no acute findings, no ischemic changes. Troponin negative x2. = 06/22.. D-dimer negative. Serial troponins negative. EKG no change. Appreciate cardiology assistance. Request records from primary recreation aide. = 06/23 Cardiology following. Echocardiogram pending. Outside records pending 06-14 had stress test- EF IS 70% 06-25 SUSPECT PSYCHIATRIC ISSUE //Bilateral leg pain. Expect this is secondary to fibromyalgia related to untreated sleep apnea. We'll check ultrasound to rule out DVT. = 06/22. Ultrasound negative for DVT. //CHF: heart healthy diet, fluid restriction 1800ml/day. BB and bumex resumed. = 06/22. Slight bump in creatinine to 1.1. Will liberalize slightly fluid restrictions. Due to monitor. //COPD: stable, on home oxygen. Duoneb prn. home meds resumed //HTN: stable. on home meds. added vasotec IV and clonidine prn for BP's >160/ 90. Continue lisinopril. //Hypovitaminosis D. Continue replacement. //IDDM: on levemir. = Increase Levemir to 16 units twice daily. = 06/22. Glucose in 300s. Switch sliding scale to high dose sliding scale. Continue to monitor. = 06/23. Glucose 120s this morning, temperature. Continue to monitor. MALIGNANT MEDICAL NONCOMPLIANCE- APPEARS TO LIKE TO BE IN THE HOSPITAL LIKES TO SAY HAS CHEST PAIN WHEN SHE LOOKS PERFECTLY COMFORTABLE Obesity recommend weight loss Discharge Planning Has chronic pain that I will never fix Anurag Mcdaniels DO Jun 25, 2017 15:11
[2017-06-26 06:20] VITALS: BP 112/55; PULSE 92; RESP 19; TEMP 98.1; O2SAT 95
[2017-06-26] MEDS: INSULIN ASPART SUPPLEMENTAL SCALE SQ SCH ×4 (07:50→21:05)
[2017-06-26] MEDS: BUDESONIDE-FORMOTEROL 80/4.5 MCG INHALER INH SCH ×2 (09:43→23:12)
[2017-06-26] MEDS: METOPROLOL TARTRATE 50 MG TAB PO SCH ×3 (09:44→17:42)
[2017-06-26] MEDS: FAMOTIDINE 20 MG TAB PO SCH ×2 (09:44→21:07)
[2017-06-26] MEDS: LISINOPRIL 5 MG TAB PO SCH (09:44)
[2017-06-26] MEDS: DOCUSATE SODIUM 100 MG CAP PO SCH ×2 (09:44→21:06)
[2017-06-26] MEDS: clonazePAM 0.5 MG TAB PO SCH (09:45)
[2017-06-26] MEDS: INSULIN DETEMIR 100 UNITS/ML VIAL SQ SCH ×2 (09:45→21:04)
[2017-06-26] MEDS: SERTRALINE HCL 50 MG TAB PO SCH (09:45)
--- NOTE | 2017-06-26 10:49 | HHI.PYPN ---
Subjective Remarks Patient seen for follow-up, chart reviewed. Patient found sitting in day room watching television, cooperative today. Patient continues to be noted to be very guarded with casualty underwriter stating that her mood has been "so-so" stating her depression is about he had a 10 (10 being the worst) and continues to endorse suicide ideations which she last experienced this morning. Patient had initially answered last having suicidal ideations yesterday and when asked again if she was having them at this time she said this morning. Patient also continues to endorse command auditory hallucination herself and stated that they have been "so-so" in which they tell her to cut her wrists. Patient states that aside from having these command auditory hallucinations she also can feels as if she wants to hurt himself. Review of Systems Except as stated in HPI: all other systems reviewed are Neg Mental Status Examination Appearance: Disheveled Consciousness: Alert Orientation: x4 Motor Activity: Normal gait Speech: Unremarkable Language: Adequate Fund of Knowledge: Adequate Attention and Concentration: Adequate Memory: Unremarkable Mood: Other ("so-so") Affect: Blunt, Other (guarded) Thought Process & Associations: Intact, Linear Thought Content: Hallucinations Hallucination Type: Auditory (command auditory hallucinations to hurt herself) Delusion Type: Paranoid Suicidal Ideation: Yes (fleeting) Suicidal Plan: Yes (cut her wrist as stated by her command auditory hallucinations) Suicidal Intention: No Homicidal Ideation: No Homicidal Plan: No Homicidal Intention: No Insight: Fair Judgment: Impulsive Results Vitals/IOs Vital Signs Date Time Temp Pulse Resp B/P (MAP) Pulse Ox O2 Delivery O2 Flow Rate FiO2 06/26/17 08:19 Nasal Cannula 3.00 06/26/17 06:20 98.1 92 19 112/55 (98) 95 Intake and Output 06/26/17 06/26/17 06/27/17 08:00 16:00 00:00 Intake Total 100 ml Balance 100 ml Assessment & Plan Problem List: (1) Adjustment disorder with depressed mood ICD Codes: F43.21 - Adjustment disorder with depressed mood Assessment & Plan Patient at this time continues to endorse having suicidal ideations as well as command auditory hallucinations to hurt himself although appears to be less intense and less frequent. Patient continues to report feeling depressed and now endorsing it decreasing slightly. Continue current treatment for now. We' ll now start consider having patient off one-to-one observation soon as patient' s perceptual disturbances, suicidal ideations and depressed mood has been slightly improving. Will be considering having patient for for state hospitalization patient continues to have minimal partial response to treatment. Discharge planning in progress Justification for Cont. Inpt. At risk for further decompensation if at lower level of care Discharge Planning Patient to return back to her residence if psychiatrically stable Jah Montelongo MD Jun 26, 2017 10:49
[2017-06-26] MEDS: SUCRALFATE 1 GM TAB PO SCH ×4 (11:06→23:12)
[2017-06-26] MEDS: BUMETANIDE 1 MG TAB PO SCH (11:06)
[2017-06-26] MEDS: PALIPERIDONE ER 3 MG TAB PO SCH (11:06)
[2017-06-26] MEDS: RIVAROXABAN 20 MG TAB PO SCH (11:06)
--- NOTE | 2017-06-26 12:17 | HHI.PR ---
Subjective Remarks Had stress test results are normal Patient continues to complain of chest pain appears to be quite atypical in nature since she is swallowing everything on her plate Feel this is more psychiatric than anything 15 COMPLAINS OF CHEST PAIN ALL THE TIME- STRESS TEST IS NEGATIVE SEEN WATCHING A MOVIE DW RN AND PT NO NEW COMPLAINTS - STATES HAS PAIN- HAVE TOLD HER THE PAIN IS NONCARDIAC WILL WATCH SUGARS INCREASE LEVEMIR TO 25 UNITS SUBQ BID Objective Vitals Vital Signs Date Time Temp Pulse Resp B/P (MAP) Pulse Ox O2 Delivery O2 Flow Rate FiO2 06/26/17 08:19 Nasal Cannula 3.00 06/26/17 06:20 98.1 92 19 112/55 (74) 95 06/25/17 19:00 Nasal Cannula 3.00 I/O 06/25/17 06/25/17 06/25/17 06/26/17 06/26/17 06/26/17 07:00 15:00 23:00 07:00 15:00 23:00 Intake Total 0 ml 120 ml 100 ml Balance 0 ml 120 ml 100 ml Intake Oral 0 ml 120 ml 100 ml # Voids 0 Result Diagram: 06/23/17 0540 06/23/17 0540 Imaging Last Impressions Myocardial Perfusion Scan Nuc Med 06/23/17 0000 Signed Impressions: Service Date/Time: Friday, June 23, 2017 10:44 - CONCLUSION: No reversible defects observed to suggest acute ischemia. RISK CATEGORY: Low Jose Rojas Jr., MD Lower Extremity Ultrasound 06/21/17 0000 Signed Impressions: Service Date/Time: Wednesday, June 21, 2017 17:14 - CONCLUSION: No DVT is identified within either lower extremity. Hesham Sykes MD Chest X-Ray 06/21/17 0000 Signed Impressions: Service Date/Time: Wednesday, June 21, 2017 15:22 - CONCLUSION: 1. Hypoinflation with no acute infiltrate. 2. Borderline prominent but well compensated heart Dorian Adamson MD Gall Bladder Ultrasound 06/19/17 0000 Signed Impressions: Service Date/Time: June 08:30 - CONCLUSION: Likely hepatic steatosis. Mild gallbladder sludge Hesham Tomas MD Abdomen X-Ray 06/18/17 0000 Signed Impressions: Service Date/Time: Sunday, June 18, 2017 16:33 - CONCLUSION: 1. Gas distended stomach with an otherwise normal bowel gas pattern. Jose Rojas Jr., MD Objective Remarks GENERAL: Awake alert talkative and cooperative-oriented 3 SKIN: Warm and dry. HEAD: Atraumatic. Normocephalic. Extraocular muscles intact EYES: Pupils equal and round. No scleral icterus. No injection or drainage. Extraocular muscles intact ENT: No nasal bleeding or discharge. Mucous membranes pink and moist. Tongue is midline NECK: Trachea midline. No JVD. Supple CARDIOVASCULAR: Regular rate and rhythm. S1 and S2 no S3 or S4 RESPIRATORY: No accessory muscle use. Clear to auscultation. Breath sounds equal bilaterally. GASTROINTESTINAL: Abdomen soft, non-tender, nondistended. Hepatic and splenic margins not palpable. Obese MUSCULOSKELETAL: Extremities without clubbing, cyanosis, or edema. No obvious deformities. NEUROLOGICAL: Awake and alert. No obvious cranial nerve deficits. Motor grossly within normal limits. Five out of 5 muscle strength in the arms and legs. Normal speech. PSYCHIATRIC: INAppropriate mood and affect; insight and judgment ABnormal. Procedures NONE Medications and IVs Current Medications Insulin Human Regular (NovoLIN R INJ) 6 units ONCE ONCE IV PUSH ; Start at 22:45; Stop 06/16/17 at 23:01; Status DC Insulin Human Regular (NovoLIN R INJ) 6 units ONCE ONCE SQ Last administered on 06/16/17 23:06; Start 06/16/17 at 23:00; Stop 06/16/17 at 23:01; Status DC Al Hydrox/Mg Hydrox/Simethicone (Mag-Al Plus Susp Liq) 30 ml ONCE ONCE PO Last administered on 06/17/17 12:25; Start 06/17/17 at 12:00; Stop 06/17/17 at 12:01; Status DC Lidocaine HCl (Xylocaine 2% Viscous) 15 ml ONCE ONCE PO Last administered on 06/17/17 12:25; Start 06/17/17 at 12:00; Stop 06/17/17 at 12:01; Status DC Lorazepam (Ativan) 1 mg Q6H PRN PO MODERATE TO SEVERE ANXIETY Last administered on 06/25/17 08:19; Start 06/17/17 at 15:00 Lorazepam (Ativan Inj) 1 mg Q6H PRN IM MODERATE TO SEVERE ANXIETY; Start at 15:00 Diphenhydramine HCl (Benadryl) 50 mg Q6H PRN PO For mild anxiety and/or EPS; Start 06/17/17 at 15:00 Diphenhydramine HCl (Benadryl Inj) 50 mg Q6H PRN IM For mild anxiety and/or EPS ; Start 06/17/17 at 15:00 Acetaminophen (Tylenol) 650 mg Q4H PRN PO Temp >101F Last administered on 06/20 21:09; Start 06/17/17 at 15:00 Magnesium Hydroxide (Milk Of Magnesia Liq) 30 ml DAILY PRN PO CONSTIPATION; Start 06/17/17 at 15:00; Stop 06/17/17 at 15:04; Status DC Al Hydrox/Mg Hydrox/Simethicone (Mag-Al Plus Susp Liq) 30 ml Q6H PRN PO DYSPEPSIA; Start 06/17/17 at 15:00 Bisacodyl (Dulcolax Supp) 10 mg DAILY PRN RECTAL CONSTIPATION; Start 06/17/17 at 15:00 Budesonide/ Formoterol Fumarate (Symbicort 80-4.5 Mcg Inh) 2 puff Q12HR INH Last administered on 06/26/17 09:43; Start 06/17/17 at 21:00 Bumetanide (Bumetanide) 1 mg DAILY PO Last administered on 06/26/17 11:06; Start 06/18/17 at 09:00 Clonazepam (KlonoPIN) 0.5 mg BID PO Last administered on 06/26/17 09:45; Start 06/17/17 at 21:00 Famotidine (Pepcid) 20 mg BID PO Last administered on 06/26/17 09:44; Start 06/17/17 at 21:00 Acetaminophen/ Hydrocodone Bitart ([place] 5-325 Mg) 1 tab Q4H PRN PO PAIN SCALE 1-10 Last administered on 06/23/17 17:30; Start 06/17/17 at 15:00 Insulin Detemir (Levemir Inj) 10 units BID SQ Last administered on 06/19/17 09 :17; Start 06/17/17 at 21:00; Stop 06/19/17 at 14:37; Status DC Magnesium Hydroxide (Milk Of Magnesia Liq) 60 ml DAILY PRN PO INDIGESTION; Start 06/17/17 at 15:00 Metoprolol Tartrate (Lopressor) 50 mg TID PO Last administered on 06/26/17 09 :44; Start 06/17/17 at 18:00 Rivaroxaban (Xarelto) 20 mg DAILY PO Last administered on 06/26/17 11:06; Start 06/18/17 at 09:00 Sucralfate (Carafate) 1 gm QID PO Last administered on 06/26/17 11:06; Start 06/17/17 at 18:00 Ziprasidone (Geodon) 80 mg BID PO Last administered on 06/18/17 08:04; Start 06/17/17 at 21:00; Stop 06/18/17 at 13:44; Status DC Ziprasidone (Geodon) 60 mg BID PO Last administered on 06/19/17 08:54; Start 06/18/17 at 21:00; Stop 06/19/17 at 12:44; Status DC Paliperidone Palmitate (Invega Er) 3 mg DAILY PO Last administered on 08:51; Start 06/19/17 at 09:00; Stop 06/19/17 at 12:44; Status DC Dextrose (D50w (Syr) Inj) 50 ml UNSCH PRN IV PUSH HYPOGLYCEMIA-SEE COMMENTS; Start 06/18/17 at 15:45 Glucagon (Glucagon Inj) 1 mg UNSCH PRN OTHER HYPOGLYCEMIA-SEE COMMENTS; Start 06/18/17 at 15:45 Insulin Aspart (NovoLOG SUPPLEMENTAL SCALE) 1 ACHS SLIDING SCALE SQ Last administered on 06/22/17 16:38; Start 06/18/17 at 17:00; Stop 06/22/17 at 17: 21; Status DC Albuterol/ Ipratropium (Duoneb Neb) 1 ampule Q6HR NEB PRN NEB SOB/WHEEZING; Start 06/18/17 at 16:15 Enalaprilat (Vasotec Inj) 1.25 mg Q6H PRN IV PUSH SBP>160, DBP>90; Start at 16:15 Clonidine (Catapres) 0.1 mg Q6H PRN PO SBP>160, DBP>90; Start 06/18/17 at 16:15 Lisinopril (Prinivil) 5 mg DAILY PO Last administered on 06/26/17 09:44; Start 06/19/17 at 09:00 Paliperidone Palmitate (Invega Er) 6 mg DAILY PO Last administered on 08:14; Start 06/20/17 at 09:00; Stop 06/21/17 at 11:41; Status DC Ziprasidone (Geodon) 40 mg BID PO Last administered on 06/19/17 20:27; Start 06/19/17 at 21:00; Stop 06/20/17 at 07:02; Status DC Paliperidone Palmitate (Invega Er) 3 mg ONCE ONCE PO Last administered on 06/19 14:48; Start 06/19/17 at 13:15; Stop 06/19/17 at 13:16; Status DC Docusate Sodium (Colace) 100 mg BID PO Last administered on 06/26/17 09:44; Start 06/19/17 at 14:00 Insulin Detemir (Levemir Inj) 14 units BID SQ Last administered on 06/21/17 08:15; Start 06/19/17 at 21:00; Stop 06/21/17 at 08:40; Status DC Aspirin (Aspirin) 325 mg ONCE ONCE PO Last administered on 06/19/17 15:19; Start 06/19/17 at 14:45; Stop 06/19/17 at 14:46; Status DC Docusate Sodium (Colace) 100 mg BID PO ; Start 06/19/17 at 21:00; Stop 06/19/17 at 21:00; Status DC Ziprasidone (Geodon) 20 mg BID PO Last administered on 06/21/17 08:15; Start 06/20/17 at 09:00; Stop 06/21/17 at 09:00; Status DC Sertraline HCl (Zoloft) 50 mg DAILY PO Last administered on 06/23/17 08:39; Start 06/20/17 at 09:00; Stop 06/23/17 at 14:31; Status DC Ergocalciferol (Drisdol) 50,000 units Q7D PO Last administered on 06/20/17 12 :11; Start 06/20/17 at 11:00; Stop 08/08/17 at 11:01 Sodium Chloride ([place]) 2 spray Q4H PRN EACH NARE NASAL CONGESTION; Start 06/20/17 at 11:00 Insulin Detemir (Levemir Inj) 16 units BID SQ Last administered on 06/24/17 09:00; Start 06/21/17 at 09:00; Stop 06/24/17 at 11:51; Status DC Paliperidone Palmitate (Invega Er) 6 mg DAILY PO Last administered on 08:39; Start 06/22/17 at 09:00; Stop 06/23/17 at 14:31; Status DC Morphine Sulfate (Morphine Inj) 2 mg ONCE ONCE IV Last administered on 20:45; Start 06/21/17 at 20:45; Stop 06/21/17 at 20:46; Status DC Enoxaparin Sodium (Lovenox Inj) 120 mg ONCE ONCE SQ Last administered on 06/22 01:30; Start 06/22/17 at 01:30; Stop 06/22/17 at 01:31; Status DC Sodium Chloride 250 ml @ 250 mls/hr BOLUS ONCE IV ; Start 06/22/17 at 10:30; Stop 06/22/17 at 11:29; Status DC Insulin Aspart (NovoLOG SUPPLEMENTAL SCALE) 1 ACHS SLIDING SCALE SQ Last administered on 06/26/17 11:37; Start 06/22/17 at 21:00 Regadenoson (Lexiscan Inj) 0.4 mg STK-MED ONCE IV Last administered on 11:00; Start 06/23/17 at 11:00; Stop 06/23/17 at 11:01; Status DC Paliperidone Palmitate (Invega Er) 9 mg DAILY PO ; Start 06/24/17 at 09:00; Stop 06/24/17 at 09:00; Status DC Sertraline HCl (Zoloft) 75 mg DAILY PO Last administered on 06/26/17 09:45; Start 06/24/17 at 09:00 Miscellaneous (Pill Splitter) 1 ea UNSCH PRN OTHER SEE LABEL COMMENTS; Start 06/23/17 at 14:45 Paliperidone Palmitate (Invega Er) 9 mg DAILY PO Last administered on 08:19; Start 06/24/17 at 09:00; Stop 06/25/17 at 11:23; Status DC Insulin Detemir (Levemir Inj) 20 units BID SQ Last administered on 06/26/17 09:45; Start 06/24/17 at 21:00 Paliperidone Palmitate (Invega Er) 12 mg DAILY PO Last administered on 11:06; Start 06/26/17 at 09:00 Paliperidone Palmitate (Invega Er) 3 mg ONCE ONCE PO Last administered on 11:30; Start 06/25/17 at 11:30; Stop 06/25/17 at 11:31; Status DC A/P Assessment and Plan This is a 42-year-old female with suicidal ideation, we were consulted for abdominal pain //Suicidal ideation: with a plan. Management per psychiatry //Abdominal pain:. Resolved. Patient complained of abdominal pain of 10 although when I came in pt was sleeping and appeared comfortable. she complains of pain w deep palpation diffusely although she only really grimaces w palpation in the RUQ/epigastric area. This has resolved. Workup is negative, lipase is normal, KUB negative, ultrasound showed hepatic steatosis and biliary sludge. Monitor for now. = Patient continues on H2 evgeny. //Chest pain-could be psychiatric. EKG reviewed no acute findings, no ischemic changes. Troponin negative x2. = 06/22.. D-dimer negative. Serial troponins negative. EKG no change. Appreciate cardiology assistance. Request records from primary binding bench worker. = 06/23 Cardiology following. Echocardiogram pending. Outside records pending 06-14 had stress test- EF IS 70% 06-25 SUSPECT PSYCHIATRIC ISSUE //Bilateral leg pain. Expect this is secondary to fibromyalgia related to untreated sleep apnea. We'll check ultrasound to rule out DVT. = 06/22. Ultrasound negative for DVT. //CHF: heart healthy diet, fluid restriction 1800ml/day. BB and bumex resumed. = 06/22. Slight bump in creatinine to 1.1. Will liberalize slightly fluid restrictions. Due to monitor. //COPD: stable, on home oxygen. Duoneb prn. home meds resumed //HTN: stable. on home meds. added vasotec IV and clonidine prn for BP's >160/ 90. Continue lisinopril. //Hypovitaminosis D. Continue replacement. //IDDM: on levemir. = Increase Levemir to 16 units twice daily. = 06/22. Glucose in 300s. Switch sliding scale to high dose sliding scale. Continue to monitor. = 06/23. Glucose 120s this morning, temperature. Continue to monitor. - SUGARS ELEVATED BUT IS NONCOMPLIANT WITH DIET INCREASE LEVEMIR TO 25 UNITS SUBQ BID MALIGNANT MEDICAL NONCOMPLIANCE- APPEARS TO LIKE TO BE IN THE HOSPITAL LIKES TO SAY HAS CHEST PAIN WHEN SHE LOOKS PERFECTLY COMFORTABLE Obesity recommend weight loss Discharge Planning Has chronic pain that I will never fix Anurag Mcdaniels DO Jun 26, 2017 12:17
[2017-06-26 16:56] VITALS: BP 136/73; PULSE 100; RESP 17; TEMP 98.6
[2017-06-26] MEDS: LORazepam 1 MG TAB PO PRN (17:43)
[2017-06-26] MEDS ORDERED: OLANZapine 10 MG TAB PO ONE (19:00)
[2017-06-26] MEDS ORDERED: ACETAMINOPHEN 325 MG TAB PO PRN (20:30)
[2017-06-26] MEDS ORDERED: INSULIN DETEMIR 100 UNITS/ML VIAL SQ SCH (21:00)
[2017-06-26] MEDS ORDERED: ATORVASTATIN 10 MG TAB PO SCH (21:00)
[2017-06-26] MEDS: ATORVASTATIN 10 MG TAB PO SCH (23:12)
[2017-06-27 05:50] VITALS: BP 128/62; PULSE 100; RESP 18; TEMP 98.7; O2SAT 98
[2017-06-27] MEDS: INSULIN ASPART SUPPLEMENTAL SCALE SQ SCH ×4 (07:44→21:41)
[2017-06-27] MEDS: DOCUSATE SODIUM 100 MG CAP PO SCH ×2 (08:46→20:53)
[2017-06-27] MEDS: LISINOPRIL 5 MG TAB PO SCH (08:46)
[2017-06-27] MEDS: PALIPERIDONE ER 3 MG TAB PO SCH (08:46)
[2017-06-27] MEDS: BUMETANIDE 1 MG TAB PO SCH (08:46)
[2017-06-27] MEDS: METOPROLOL TARTRATE 50 MG TAB PO SCH ×3 (08:46→17:20)
[2017-06-27] MEDS: FAMOTIDINE 20 MG TAB PO SCH ×2 (08:46→20:54)
[2017-06-27] MEDS: clonazePAM 0.5 MG TAB PO SCH ×2 (08:46→20:52)
[2017-06-27] MEDS: SERTRALINE HCL 50 MG TAB PO SCH (08:47)
[2017-06-27] MEDS: RIVAROXABAN 20 MG TAB PO SCH (08:47)
[2017-06-27] MEDS: SUCRALFATE 1 GM TAB PO SCH ×4 (08:47→20:54)
[2017-06-27] MEDS: BUDESONIDE-FORMOTEROL 80/4.5 MCG INHALER INH SCH ×2 (08:48→20:48)
[2017-06-27] MEDS: INSULIN DETEMIR 100 UNITS/ML VIAL SQ SCH ×2 (08:52→20:50)
[2017-06-27] MEDS ORDERED: INSULIN DETEMIR 100 UNITS/ML VIAL SQ SCH (09:00)
--- NOTE | 2017-06-27 10:49 | HHI.PYPN ---
Subjective Remarks Patient seen for follow up; chart reviewed. Discussion with nursing staff reported that the patient was found pulling her hair out last evening which she required ETO (Zyprexa 10mg PO x 1) and was noted to do the same this morning. Onesimo had stated not feeling like doing this as long as she was not in her room alone. She also had endorsed AH telling her to do this. Patient was found lying on hospital bed, asleep but able to wake up for interview. Patient states that she is feeling "tired" but her mood has been "a little better", continues to have AH telling her to hurt herself. She states that the AH are egosyntonic stating she has thoughts of not wanting to be alive "I want to be with my mother". When asked for reasons to live, " I don't know!". Review of Systems Except as stated in HPI: all other systems reviewed are Neg Mental Status Examination Appearance: Disheveled Consciousness: Alert Orientation: x4 Motor Activity: Normal gait Speech: Unremarkable Language: Adequate Fund of Knowledge: Adequate Attention and Concentration: Adequate Memory: Unremarkable Mood: Irritable Affect: Blunt, Other (guarded) Thought Process & Associations: Intact, Linear Thought Content: Hallucinations Hallucination Type: Auditory (command auditory hallucinations to hurt herself) Delusion Type: Paranoid Suicidal Ideation: Yes (fleeting) Suicidal Plan: Yes (cut her wrist as stated by her command auditory hallucinations) Suicidal Intention: No Homicidal Ideation: No Homicidal Plan: No Homicidal Intention: No Insight: Poor Judgment: Poor Results Vitals/IOs Vital Signs Date Time Temp Pulse Resp B/P (MAP) Pulse Ox O2 Delivery O2 Flow Rate FiO2 06/27/17 09:22 Nasal Cannula 3.00 06/27/17 05:50 98.7 100 18 128/62 (84) 98 Assessment & Plan Problem List: (1) Adjustment disorder with depressed mood ICD Codes: F43.21 - Adjustment disorder with depressed mood Assessment & Plan Patient currently with continued command AH telling her to hurt herself and has acted out on these hallucinations as reported in HPI (pulling her hair out). She reports her mood improving somewhat but continues to be noted to be guarded and irritable at times. Patient continues with SI and has required 1:1 observation after necessitating ETO last evening. Patient to remain on 1:1 for now for safety. Will start seroquel 50mg PO @ 4pm and 9pm. Will consider cross tapering to clozapine if no continued improvement. Discharge planning in progress. Justification for Cont. Inpt. At risk for further decompensation if at lower level of care. Discharge Planning Patient to return back to residence once psychiatrically stable. Jah Montelongo MD Jun 27, 2017 10:49
[2017-06-27] MEDS ORDERED: ERGOCALCIFEROL (VIT D2) 50,000 UNIT CAP PO SCH (11:00)
[2017-06-27 12:50] VITALS: BP 91/55; PULSE 98; O2SAT 94
--- NOTE | 2017-06-27 15:17 | HHI.PR ---
Subjective Remarks Had stress test results are normal Patient continues to complain of chest pain appears to be quite atypical in nature since she is swallowing everything on her plate Feel this is more psychiatric than anything -15 COMPLAINS OF CHEST PAIN ALL THE TIME- STRESS TEST IS NEGATIVE SEEN WATCHING A MOVIE DW RN AND PT NO NEW COMPLAINTS - STATES HAS PAIN- HAVE TOLD HER THE PAIN IS NONCARDIAC WILL WATCH SUGARS INCREASE LEVEMIR TO 25 UNITS SUBQ BID 06-27 NO NEW COMPLAINTS STILL HAS ATYPICAL CHEST PAIN DW RN AND PT HAS SITTER IN HER ROOM Objective Vitals Vital Signs Date Time Temp Pulse Resp B/P (MAP) Pulse Ox O2 Delivery O2 Flow Rate FiO2 06/27/17 12:50 98 91/55 (67) 94 06/27/17 09:22 Nasal Cannula 3.00 06/27/17 05:50 98.7 100 18 128/62 (84) 98 06/26/17 19:00 Nasal Cannula 3.00 06/26/17 16:56 98.6 100 17 136/73 (94) I/O 06/26/17 06/26/17 06/26/17 06/27/17 06/27/17 06/27/17 07:00 15:00 23:00 07:00 15:00 23:00 Intake Total 100 ml 360 ml Balance 100 ml 360 ml Intake Oral 100 ml 360 ml Result Diagram: 06/23/17 0540 06/23/17 0540 Imaging Last Impressions Myocardial Perfusion Scan Nuc Med 06/23/17 0000 Signed Impressions: Service Date/Time: Friday, June 23, 2017 10:44 - CONCLUSION: No reversible defects observed to suggest acute ischemia. RISK CATEGORY: Low Jose Rojas Jr., MD Lower Extremity Ultrasound 06/21/17 0000 Signed Impressions: Service Date/Time: Wednesday, June 21, 2017 17:14 - CONCLUSION: No DVT is identified within either lower extremity. Hesham Sykes MD Chest X-Ray 06/21/17 0000 Signed Impressions: Service Date/Time: Wednesday, June 21, 2017 15:22 - CONCLUSION: 1. Hypoinflation with no acute infiltrate. 2. Borderline prominent but well compensated heart Dorian Adamson MD Gall Bladder Ultrasound 06/19/17 0000 Signed Impressions: Service Date/Time: June 08:30 - CONCLUSION: Likely hepatic steatosis. Mild gallbladder sludge Hesham Tomas MD Abdomen X-Ray 06/18/17 0000 Signed Impressions: Service Date/Time: Sunday, June 18, 2017 16:33 - CONCLUSION: 1. Gas distended stomach with an otherwise normal bowel gas pattern. Jose Rojas Jr., MD Objective Remarks GENERAL: Awake alert talkative and cooperative-oriented 3 SKIN: Warm and dry. HEAD: Atraumatic. Normocephalic. Extraocular muscles intact EYES: Pupils equal and round. No scleral icterus. No injection or drainage. Extraocular muscles intact ENT: No nasal bleeding or discharge. Mucous membranes pink and moist. Tongue is midline NECK: Trachea midline. No JVD. Supple CARDIOVASCULAR: Regular rate and rhythm. S1 and S2 no S3 or S4 RESPIRATORY: No accessory muscle use. Clear to auscultation. Breath sounds equal bilaterally. GASTROINTESTINAL: Abdomen soft, non-tender, nondistended. Hepatic and splenic margins not palpable. Obese MUSCULOSKELETAL: Extremities without clubbing, cyanosis, or edema. No obvious deformities. NEUROLOGICAL: Awake and alert. No obvious cranial nerve deficits. Motor grossly within normal limits. Five out of 5 muscle strength in the arms and legs. Normal speech. PSYCHIATRIC: INAppropriate mood and affect; insight and judgment ABnormal. Procedures NONE Medications and IVs Current Medications Insulin Human Regular (NovoLIN R INJ) 6 units ONCE ONCE IV PUSH ; Start at 22:45; Stop 06/16/17 at 23:01; Status DC Insulin Human Regular (NovoLIN R INJ) 6 units ONCE ONCE SQ Last administered on 06/16/17 23:06; Start 06/16/17 at 23:00; Stop 06/16/17 at 23:01; Status DC Al Hydrox/Mg Hydrox/Simethicone (Mag-Al Plus Susp Liq) 30 ml ONCE ONCE PO Last administered on 06/17/17 12:25; Start 06/17/17 at 12:00; Stop 06/17/17 at 12:01; Status DC Lidocaine HCl (Xylocaine 2% Viscous) 15 ml ONCE ONCE PO Last administered on 06/17/17 12:25; Start 06/17/17 at 12:00; Stop 06/17/17 at 12:01; Status DC Lorazepam (Ativan) 1 mg Q6H PRN PO MODERATE TO SEVERE ANXIETY Last administered on 06/26/17 17:43; Start 06/17/17 at 15:00; Status Future hold Lorazepam (Ativan Inj) 1 mg Q6H PRN IM MODERATE TO SEVERE ANXIETY; Start at 15:00; Status Future hold Diphenhydramine HCl (Benadryl) 50 mg Q6H PRN PO For mild anxiety and/or EPS Last administered on 06/26/17 15:32; Start 06/17/17 at 15:00; Status Future hold Diphenhydramine HCl (Benadryl Inj) 50 mg Q6H PRN IM For mild anxiety and/or EPS ; Start 06/17/17 at 15:00; Status Future hold Acetaminophen (Tylenol) 650 mg Q4H PRN PO Temp >101F Last administered on 06/20 21:09; Start 06/17/17 at 15:00; Stop 06/26/17 at 20:20; Status DC Magnesium Hydroxide (Milk Of Magnesia Liq) 30 ml DAILY PRN PO CONSTIPATION; Start 06/17/17 at 15:00; Stop 06/17/17 at 15:04; Status DC Al Hydrox/Mg Hydrox/Simethicone (Mag-Al Plus Susp Liq) 30 ml Q6H PRN PO DYSPEPSIA; Start 06/17/17 at 15:00; Status Future Hold Bisacodyl (Dulcolax Supp) 10 mg DAILY PRN RECTAL CONSTIPATION; Start 06/17/17 at 15:00; Status Future hold Budesonide/ Formoterol Fumarate (Symbicort 80-4.5 Mcg Inh) 2 puff Q12HR INH Last administered on 06/27/17 08:48; Start 06/17/17 at 21:00; Status Future hold Bumetanide (Bumetanide) 1 mg DAILY PO Last administered on 06/27/17 08:46; Start 06/18/17 at 09:00; Status Future hold Clonazepam (KlonoPIN) 0.5 mg BID PO Last administered on 06/27/17 08:46; Start 06/17/17 at 21:00; Status Future hold Famotidine (Pepcid) 20 mg BID PO Last administered on 06/27/17 08:46; Start 06/17/17 at 21:00; Status Future hold Acetaminophen/ Hydrocodone Bitart ([place] 5-325 Mg) 1 tab Q4H PRN PO PAIN SCALE 1-10 Last administered on 06/23/17 17:30; Start 06/17/17 at 15:00; Status Future hold Insulin Detemir (Levemir Inj) 10 units BID SQ Last administered on 06/19/17 09 :17; Start 06/17/17 at 21:00; Stop 06/19/17 at 14:37; Status DC Magnesium Hydroxide (Milk Of Magnlionel Liq) 60 ml DAILY PRN PO INDIGESTION; Start 06/17/17 at 15:00; Status Future hold Metoprolol Tartrate (Lopressor) 50 mg TID PO Last administered on 06/27/17 08 :46; Start 06/17/17 at 18:00; Status Future hold Rivaroxaban (Xarelto) 20 mg DAILY PO Last administered on 06/27/17 08:47; Start 06/18/17 at 09:00; Status Future hold Sucralfate (Carafate) 1 gm QID PO Last administered on 06/27/17 08:47; Start 06/17/17 at 18:00; Status Future hold Ziprasidone (Geodon) 80 mg BID PO Last administered on 06/18/17 08:04; Start 06/17/17 at 21:00; Stop 06/18/17 at 13:44; Status DC Ziprasidone (Geodon) 60 mg BID PO Last administered on 06/19/17 08:54; Start 06/18/17 at 21:00; Stop 06/19/17 at 12:44; Status DC Paliperidone Palmitate (Invega Er) 3 mg DAILY PO Last administered on 08:51; Start 06/19/17 at 09:00; Stop 06/19/17 at 12:44; Status DC Dextrose (D50w (Syr) Inj) 50 ml UNSCH PRN IV PUSH HYPOGLYCEMIA-SEE COMMENTS; Start 06/18/17 at 15:45; Status Future Hold Glucagon (Glucagon Inj) 1 mg UNSCH PRN OTHER HYPOGLYCEMIA-SEE COMMENTS; Start 06/18/17 at 15:45; Status Future hold Insulin Aspart (NovoLOG SUPPLEMENTAL SCALE) 1 ACHS SLIDING SCALE SQ Last administered on 06/22/17 16:38; Start 06/18/17 at 17:00; Stop 06/22/17 at 17: 21; Status DC Albuterol/ Ipratropium (Duoneb Neb) 1 ampule Q6HR NEB PRN NEB SOB/WHEEZING; Start 06/18/17 at 16:15; Status Future hold Enalaprilat (Vasotec Inj) 1.25 mg Q6H PRN IV PUSH SBP>160, DBP>90; Start at 16:15; Status Future hold Clonidine (Catapres) 0.1 mg Q6H PRN PO SBP>160, DBP>90; Start 06/18/17 at 16:15 ; Status Future Hold Lisinopril (Prinivil) 5 mg DAILY PO Last administered on 06/27/17 08:46; Start 06/19/17 at 09:00; Status Future hold Paliperidone Palmitate (Invega Er) 6 mg DAILY PO Last administered on 08:14; Start 06/20/17 at 09:00; Stop 06/21/17 at 11:41; Status DC Ziprasidone (Geodon) 40 mg BID PO Last administered on 06/19/17 20:27; Start 06/19/17 at 21:00; Stop 06/20/17 at 07:02; Status DC Paliperidone Palmitate (Invega Er) 3 mg ONCE ONCE PO Last administered on 06/19 14:48; Start 06/19/17 at 13:15; Stop 06/19/17 at 13:16; Status DC Docusate Sodium (Colace) 100 mg BID PO Last administered on 06/27/17 08:46; Start 06/19/17 at 14:00; Status Future hold Insulin Detemir (Levemir Inj) 14 units BID SQ Last administered on 06/21/17 08:15; Start 06/19/17 at 21:00; Stop 06/21/17 at 08:40; Status DC Aspirin (Aspirin) 325 mg ONCE ONCE PO Last administered on 06/19/17 15:19; Start 06/19/17 at 14:45; Stop 06/19/17 at 14:46; Status DC Docusate Sodium (Colace) 100 mg BID PO ; Start 06/19/17 at 21:00; Stop 06/19/17 at 21:00; Status DC Ziprasidone (Geodon) 20 mg BID PO Last administered on 06/21/17 08:15; Start 06/20/17 at 09:00; Stop 06/21/17 at 09:00; Status DC Sertraline HCl (Zoloft) 50 mg DAILY PO Last administered on 06/23/17 08:39; Start 06/20/17 at 09:00; Stop 06/23/17 at 14:31; Status DC Ergocalciferol (Drisdol) 50,000 units Q7D PO Last administered on 06/20/17 12 :11; Start 06/20/17 at 11:00; Stop 06/26/17 at 20:26; Status DC Sodium Chloride ([place]) 2 spray Q4H PRN EACH NARE NASAL CONGESTION; Start 06/20/17 at 11:00; Status Future hold Insulin Detemir (Levemir Inj) 16 units BID SQ Last administered on 06/24/17 09:00; Start 06/21/17 at 09:00; Stop 06/24/17 at 11:51; Status DC Paliperidone Palmitate (Invega Er) 6 mg DAILY PO Last administered on 08:39; Start 06/22/17 at 09:00; Stop 06/23/17 at 14:31; Status DC Morphine Sulfate (Morphine Inj) 2 mg ONCE ONCE IV Last administered on 20:45; Start 06/21/17 at 20:45; Stop 06/21/17 at 20:46; Status DC Enoxaparin Sodium (Lovenox Inj) 120 mg ONCE ONCE SQ Last administered on 06/22 01:30; Start 06/22/17 at 01:30; Stop 06/22/17 at 01:31; Status DC Sodium Chloride 250 ml @ 250 mls/hr BOLUS ONCE IV ; Start 06/22/17 at 10:30; Stop 06/22/17 at 11:29; Status DC Insulin Aspart (NovoLOG SUPPLEMENTAL SCALE) 1 ACHS SLIDING SCALE SQ Last administered on 06/27/17 11:00; Start 06/22/17 at 21:00; Status Future hold Regadenoson (Lexiscan Inj) 0.4 mg STK-MED ONCE IV Last administered on 11:00; Start 06/23/17 at 11:00; Stop 06/23/17 at 11:01; Status DC Paliperidone Palmitate (Invega Er) 9 mg DAILY PO ; Start 06/24/17 at 09:00; Stop 06/24/17 at 09:00; Status DC Sertraline HCl (Zoloft) 75 mg DAILY PO Last administered on 06/27/17 08:47; Start 06/24/17 at 09:00; Status Future hold Miscellaneous (Pill Splitter) 1 ea UNSCH PRN OTHER SEE LABEL COMMENTS; Start 06/23/17 at 14:45; Status Future hold Paliperidone Palmitate (Invega Er) 9 mg DAILY PO Last administered on 08:19; Start 06/24/17 at 09:00; Stop 06/25/17 at 11:23; Status DC Insulin Detemir (Levemir Inj) 20 units BID SQ Last administered on 06/26/17 09:45; Start 06/24/17 at 21:00; Stop 06/26/17 at 12:16; Status DC Paliperidone Palmitate (Invega Er) 12 mg DAILY PO Last administered on 08:46; Start 06/26/17 at 09:00; Status Future hold Paliperidone Palmitate (Invega Er) 3 mg ONCE ONCE PO Last administered on 11:30; Start 06/25/17 at 11:30; Stop 06/25/17 at 11:31; Status DC Insulin Detemir (Levemir Inj) 25 units BID SQ ; Start 06/26/17 at 21:00; Stop 06/26/17 at 21:00; Status DC Atorvastatin Calcium (Lipitor) 10 mg HS PO ; Start 06/26/17 at 21:00; Stop at 21:00; Status DC Olanzapine (ZyPREXA) 10 mg NOW ONCE PO Last administered on 06/26/17 18:48; Start 06/26/17 at 19:00; Stop 06/26/17 at 19:01; Status DC Insulin Detemir (Levemir Inj) 20 units BID SQ ; Start 06/27/17 at 09:00; Stop 06/27/17 at 09:00; Status DC Acetaminophen (Tylenol) 650 mg Q4H PRN PO Temp >101F; Start 06/26/17 at 20:30 Atorvastatin Calcium (Lipitor) 10 mg HS PO Last administered on 06/26/17t 23: 12; Start 06/26/17 at 21:00 Ergocalciferol (Drisdol) 50,000 units Q7D PO ; Start 06/27/17 at 11:00 Insulin Detemir (Levemir Inj) 25 units BID SQ Last administered on 06/27/17 08:52; Start 06/26/17 at 21:00 Quetiapine Fumarate (SEROquel) 50 mg BID@1600,2100 PO ; Start 06/27/17 at 16:00 A/P Assessment and Plan This is a 42-year-old female with suicidal ideation, we were consulted for abdominal pain //Suicidal ideation: with a plan. Management per psychiatry //Abdominal pain:. Resolved. Patient complained of abdominal pain of 9/10 although when I came in pt was sleeping and appeared comfortable. she complains of pain w deep palpation diffusely although she only really grimaces w palpation in the RUQ/epigastric area. This has resolved. Workup is negative, lipase is normal, KUB negative, ultrasound showed hepatic steatosis and biliary sludge. Monitor for now. = Patient continues on H2 evgeny. //Chest pain-could be psychiatric. EKG reviewed no acute findings, no ischemic changes. Troponin negative x2. = 06/22.. D-dimer negative. Serial troponins negative. EKG no change. Appreciate cardiology assistance. Request records from primary interpersonal communications professor. = 06/23 Cardiology following. Echocardiogram pending. Outside records pending 06-14 had stress test- EF IS 70% 06-25 SUSPECT PSYCHIATRIC ISSUE //Bilateral leg pain. Expect this is secondary to fibromyalgia related to untreated sleep apnea. We'll check ultrasound to rule out DVT. = 06/22. Ultrasound negative for DVT. //CHF: heart healthy diet, fluid restriction 1800ml/day. BB and bumex resumed. = 06/22. Slight bump in creatinine to 1.1. Will liberalize slightly fluid restrictions. Due to monitor. //COPD: stable, on home oxygen. Duoneb prn. home meds resumed //HTN: stable. on home meds. added vasotec IV and clonidine prn for BP's >160/ 90. Continue lisinopril. //Hypovitaminosis D. Continue replacement. //IDDM: on levemir. = Increase Levemir to 16 units twice daily. = 06/22. Glucose in 300s. Switch sliding scale to high dose sliding scale. Continue to monitor. = 06/23. Glucose 120s this morning, temperature. Continue to monitor. - SUGARS ELEVATED BUT IS NONCOMPLIANT WITH DIET INCREASE LEVEMIR TO 25 UNITS SUBQ BID - MONITOR BLOOD SUGARS MALIGNANT MEDICAL NONCOMPLIANCE- APPEARS TO LIKE TO BE IN THE HOSPITAL LIKES TO SAY HAS CHEST PAIN WHEN SHE LOOKS PERFECTLY COMFORTABLE Obesity recommend weight loss Discharge Planning Has chronic pain that I will never fix Anurag Mcdaniels DO Jun 27, 2017 15:17
[2017-06-27] MEDS: QUEtiapine FUMARATE 25 MG TAB PO SCH ×2 (16:00→20:57)
[2017-06-27 17:32] VITALS: BP 119/56; PULSE 110; RESP 18; TEMP 97.6; O2SAT 99
[2017-06-27] MEDS: ATORVASTATIN 10 MG TAB PO SCH (20:54)
[2017-06-28 05:50] VITALS: BP 125/58; PULSE 113; RESP 18; TEMP 98.3; O2SAT 98
[2017-06-28] MEDS: INSULIN ASPART SUPPLEMENTAL SCALE SQ SCH ×4 (08:33→21:32)
[2017-06-28] MEDS: PALIPERIDONE ER 3 MG TAB PO SCH (08:34)
[2017-06-28] MEDS: DOCUSATE SODIUM 100 MG CAP PO SCH ×2 (08:34→21:30)
[2017-06-28] MEDS: BUMETANIDE 1 MG TAB PO SCH (08:34)
[2017-06-28] MEDS: clonazePAM 0.5 MG TAB PO SCH ×2 (08:34→21:30)
[2017-06-28] MEDS: LISINOPRIL 5 MG TAB PO SCH (08:35)
[2017-06-28] MEDS: SUCRALFATE 1 GM TAB PO SCH ×4 (08:35→21:30)
[2017-06-28] MEDS: RIVAROXABAN 20 MG TAB PO SCH (08:35)
[2017-06-28] MEDS: SERTRALINE HCL 50 MG TAB PO SCH (08:35)
[2017-06-28] MEDS: FAMOTIDINE 20 MG TAB PO SCH ×2 (08:39→21:31)
[2017-06-28] MEDS: BUDESONIDE-FORMOTEROL 80/4.5 MCG INHALER INH SCH ×2 (08:40→21:30)
[2017-06-28] MEDS: INSULIN DETEMIR 100 UNITS/ML VIAL SQ SCH ×2 (09:00→21:33)
[2017-06-28] MEDS: METOPROLOL TARTRATE 50 MG TAB PO SCH ×3 (09:00→18:00)
[2017-06-28 11:58] VITALS: BP 145/75; PULSE 120; RESP 20; TEMP 99.2; O2SAT 99
[2017-06-28] MEDS: LORazepam 1 MG TAB PO PRN (13:12)
--- NOTE | 2017-06-28 15:27 | HHI.PR ---
Subjective Remarks Had stress test results are normal Patient continues to complain of chest pain appears to be quite atypical in nature since she is swallowing everything on her plate Feel this is more psychiatric than anything 11-15 COMPLAINS OF CHEST PAIN ALL THE TIME- STRESS TEST IS NEGATIVE SEEN WATCHING A MOVIE DW RN AND PT NO NEW COMPLAINTS 11-16 STATES HAS PAIN- HAVE TOLD HER THE PAIN IS NONCARDIAC WILL WATCH SUGARS INCREASE LEVEMIR TO 25 UNITS SUBQ BID 06-27 NO NEW COMPLAINTS STILL HAS ATYPICAL CHEST PAIN DW RN AND PT HAS SITTER IN HER ROOM 06-28 INCREASED LEVEMIR TO 30 UNITS SUBQ BID DW PT AND RN STILL HAS SITTER IN THE ROOM Objective Vitals Vital Signs Date Time Temp Pulse Resp B/P (MAP) Pulse Ox O2 Delivery O2 Flow Rate FiO2 06/28/17 11:58 99.2 120 20 145/75 (98) 99 06/28/17 10:18 Nasal Cannula 3.00 06/28/17 05:50 98.3 113 18 125/58 (80) 98 06/27/17 22:20 Nasal Cannula 3.00 06/27/17 17:32 97.6 110 18 119/56 (77) 99 I/O 06/27/17 06/27/17 06/27/17 06/28/17 06/28/17 06/28/17 07:00 15:00 23:00 07:00 15:00 23:00 Intake Total 360 ml 480 ml Balance 360 ml 480 ml Intake Oral 360 ml 480 ml # Voids 1 Imaging Last Impressions Myocardial Perfusion Scan Nuc Med 06/23/17 0000 Signed Impressions: Service Date/Time: Friday, June 23, 2017 10:44 - CONCLUSION: No reversible defects observed to suggest acute ischemia. RISK CATEGORY: Low Jose Rojas Jr., MD Lower Extremity Ultrasound 06/21/17 0000 Signed Impressions: Service Date/Time: Wednesday, June 21, 2017 17:14 - CONCLUSION: No DVT is identified within either lower extremity. Hesham Sykes MD Chest X-Ray 06/21/17 0000 Signed Impressions: Service Date/Time: Wednesday, June 21, 2017 15:22 - CONCLUSION: 1. Hypoinflation with no acute infiltrate. 2. Borderline prominent but well compensated heart Dorian Adamson MD Gall Bladder Ultrasound 06/19/17 0000 Signed Impressions: Service Date/Time: June 08:30 - CONCLUSION: Likely hepatic steatosis. Mild gallbladder sludge Hesham Tomas MD Abdomen X-Ray 06/18/17 0000 Signed Impressions: Service Date/Time: Sunday, June 18, 2017 16:33 - CONCLUSION: 1. Gas distended stomach with an otherwise normal bowel gas pattern. Jose Rojas Jr., MD Objective Remarks GENERAL: Awake alert talkative and cooperative-oriented 3 SKIN: Warm and dry. HEAD: Atraumatic. Normocephalic. Extraocular muscles intact EYES: Pupils equal and round. No scleral icterus. No injection or drainage. Extraocular muscles intact ENT: No nasal bleeding or discharge. Mucous membranes pink and moist. Tongue is midline NECK: Trachea midline. No JVD. Supple CARDIOVASCULAR: Regular rate and rhythm. S1 and S2 no S3 or S4 RESPIRATORY: No accessory muscle use. Clear to auscultation. Breath sounds equal bilaterally. GASTROINTESTINAL: Abdomen soft, non-tender, nondistended. Hepatic and splenic margins not palpable. Obese MUSCULOSKELETAL: Extremities without clubbing, cyanosis, or edema. No obvious deformities. NEUROLOGICAL: Awake and alert. No obvious cranial nerve deficits. Motor grossly within normal limits. Five out of 5 muscle strength in the arms and legs. Normal speech. PSYCHIATRIC: INAppropriate mood and affect; insight and judgment ABnormal. Procedures NONE Medications and IVs Current Medications Insulin Human Regular (NovoLIN R INJ) 6 units ONCE ONCE IV PUSH ; Start at 22:45; Stop 06/16/17 at 23:01; Status DC Insulin Human Regular (NovoLIN R INJ) 6 units ONCE ONCE SQ Last administered on 06/16/17 23:06; Start 06/16/17 at 23:00; Stop 06/16/17 at 23:01; Status DC Al Hydrox/Mg Hydrox/Simethicone (Mag-Al Plus Susp Liq) 30 ml ONCE ONCE PO Last administered on 06/17/17 12:25; Start 06/17/17 at 12:00; Stop 06/17/17 at 12:01; Status DC Lidocaine HCl (Xylocaine 2% Viscous) 15 ml ONCE ONCE PO Last administered on 06/17/17 12:25; Start 06/17/17 at 12:00; Stop 06/17/17 at 12:01; Status DC Lorazepam (Ativan) 1 mg Q6H PRN PO MODERATE TO SEVERE ANXIETY Last administered on 06/28/17 13:12; Start 06/17/17 at 15:00; Status Future hold Lorazepam (Ativan Inj) 1 mg Q6H PRN IM MODERATE TO SEVERE ANXIETY; Start at 15:00; Status Future hold Diphenhydramine HCl (Benadryl) 50 mg Q6H PRN PO For mild anxiety and/or EPS Last administered on 06/26/17 15:32; Start 06/17/17 at 15:00; Status Future hold Diphenhydramine HCl (Benadryl Inj) 50 mg Q6H PRN IM For mild anxiety and/or EPS ; Start 06/17/17 at 15:00; Status Future hold Acetaminophen (Tylenol) 650 mg Q4H PRN PO Temp >101F Last administered on 06/20 21:09; Start 06/17/17 at 15:00; Stop 06/26/17 at 20:20; Status DC Magnesium Hydroxide (Milk Of Magnesia Liq) 30 ml DAILY PRN PO CONSTIPATION; Start 06/17/17 at 15:00; Stop 06/17/17 at 15:04; Status DC Al Hydrox/Mg Hydrox/Simethicone (Mag-Al Plus Susp Liq) 30 ml Q6H PRN PO DYSPEPSIA; Start 06/17/17 at 15:00; Status Future Hold Bisacodyl (Dulcolax Supp) 10 mg DAILY PRN RECTAL CONSTIPATION; Start 06/17/17 at 15:00; Status Future hold Budesonide/ Formoterol Fumarate (Symbicort 80-4.5 Mcg Inh) 2 puff Q12HR INH Last administered on 06/28/17 08:40; Start 06/17/17 at 21:00; Status Future hold Bumetanide (Bumetanide) 1 mg DAILY PO Last administered on 06/28/17 08:34; Start 06/18/17 at 09:00; Status Future hold Clonazepam (KlonoPIN) 0.5 mg BID PO Last administered on 06/28/17 08:34; Start 06/17/17 at 21:00; Status Future hold Famotidine (Pepcid) 20 mg BID PO Last administered on 11/18/17at 08:39; Start 06/17/17 at 21:00; Status Future hold Acetaminophen/ Hydrocodone Bitart ([place] 5-325 Mg) 1 tab Q4H PRN PO PAIN SCALE 1-10 Last administered on 06/23/17 17:30; Start 06/17/17 at 15:00; Status Future hold Insulin Detemir (Levemir Inj) 10 units BID SQ Last administered on 06/19/17 09 :17; Start 06/17/17 at 21:00; Stop 06/19/17 at 14:37; Status DC Magnesium Hydroxide (Milk Of Magnlionel Liq) 60 ml DAILY PRN PO INDIGESTION; Start 06/17/17 at 15:00; Status Future hold Metoprolol Tartrate (Lopressor) 50 mg TID PO Last administered on 06/28/17 12 :07; Start 06/17/17 at 18:00; Status Future hold Rivaroxaban (Xarelto) 20 mg DAILY PO Last administered on 06/28/17 08:35; Start 06/18/17 at 09:00; Status Future hold Sucralfate (Carafate) 1 gm QID PO Last administered on 06/28/17 12:07; Start 06/17/17 at 18:00; Status Future hold Ziprasidone (Geodon) 80 mg BID PO Last administered on 06/18/17 08:04; Start 06/17/17 at 21:00; Stop 06/18/17 at 13:44; Status DC Ziprasidone (Geodon) 60 mg BID PO Last administered on 06/19/17 08:54; Start 06/18/17 at 21:00; Stop 06/19/17 at 12:44; Status DC Paliperidone Palmitate (Invega Er) 3 mg DAILY PO Last administered on 08:51; Start 06/19/17 at 09:00; Stop 06/19/17 at 12:44; Status DC Dextrose (D50w (Syr) Inj) 50 ml UNSCH PRN IV PUSH HYPOGLYCEMIA-SEE COMMENTS; Start 06/18/17 at 15:45; Status Future Hold Glucagon (Glucagon Inj) 1 mg UNSCH PRN OTHER HYPOGLYCEMIA-SEE COMMENTS; Start 06/18/17 at 15:45; Status Future hold Insulin Aspart (NovoLOG SUPPLEMENTAL SCALE) 1 ACHS SLIDING SCALE SQ Last administered on 06/22/17 16:38; Start 06/18/17 at 17:00; Stop 06/22/17 at 17: 21; Status DC Albuterol/ Ipratropium (Duoneb Neb) 1 ampule Q6HR NEB PRN NEB SOB/WHEEZING; Start 06/18/17 at 16:15; Status Future hold Enalaprilat (Vasotec Inj) 1.25 mg Q6H PRN IV PUSH SBP>160, DBP>90; Start at 16:15; Status Future hold Clonidine (Catapres) 0.1 mg Q6H PRN PO SBP>160, DBP>90; Start 06/18/17 at 16:15 ; Status Future Hold Lisinopril (Prinivil) 5 mg DAILY PO Last administered on 06/28/17 08:35; Start 06/19/17 at 09:00; Status Future hold Paliperidone Palmitate (Invega Er) 6 mg DAILY PO Last administered on 08:14; Start 06/20/17 at 09:00; Stop 06/21/17 at 11:41; Status DC Ziprasidone (Geodon) 40 mg BID PO Last administered on 06/19/17 20:27; Start 06/19/17 at 21:00; Stop 06/20/17 at 07:02; Status DC Paliperidone Palmitate (Invega Er) 3 mg ONCE ONCE PO Last administered on 06/19 14:48; Start 06/19/17 at 13:15; Stop 06/19/17 at 13:16; Status DC Docusate Sodium (Colace) 100 mg BID PO Last administered on 06/28/17 08:34; Start 06/19/17 at 14:00; Status Future hold Insulin Detemir (Levemir Inj) 14 units BID SQ Last administered on 06/21/17 08:15; Start 06/19/17 at 21:00; Stop 06/21/17 at 08:40; Status DC Aspirin (Aspirin) 325 mg ONCE ONCE PO Last administered on 06/19/17 15:19; Start 06/19/17 at 14:45; Stop 06/19/17 at 14:46; Status DC Docusate Sodium (Colace) 100 mg BID PO ; Start 06/19/17 at 21:00; Stop 06/19/17 at 21:00; Status DC Ziprasidone (Geodon) 20 mg BID PO Last administered on 06/21/17 08:15; Start 06/20/17 at 09:00; Stop 06/21/17 at 09:00; Status DC Sertraline HCl (Zoloft) 50 mg DAILY PO Last administered on 06/23/17 08:39; Start 06/20/17 at 09:00; Stop 06/23/17 at 14:31; Status DC Ergocalciferol (Drisdol) 50,000 units Q7D PO Last administered on 06/20/17 12 :11; Start 06/20/17 at 11:00; Stop 06/26/17 at 20:26; Status DC Sodium Chloride ([place]on Sai [place]) 2 spray Q4H PRN EACH NARE NASAL CONGESTION; Start 06/20/17 at 11:00; Status Future hold Insulin Detemir (Levemir Inj) 16 units BID SQ Last administered on 06/24/17 09:00; Start 06/21/17 at 09:00; Stop 06/24/17 at 11:51; Status DC Paliperidone Palmitate (Invega Er) 6 mg DAILY PO Last administered on 08:39; Start 06/22/17 at 09:00; Stop 06/23/17 at 14:31; Status DC Morphine Sulfate (Morphine Inj) 2 mg ONCE ONCE IV Last administered on 20:45; Start 06/21/17 at 20:45; Stop 06/21/17 at 20:46; Status DC Enoxaparin Sodium (Lovenox Inj) 120 mg ONCE ONCE SQ Last administered on 06/22 01:30; Start 06/22/17 at 01:30; Stop 06/22/17 at 01:31; Status DC Sodium Chloride 250 ml @ 250 mls/hr BOLUS ONCE IV ; Start 06/22/17 at 10:30; Stop 06/22/17 at 11:29; Status DC Insulin Aspart (NovoLOG SUPPLEMENTAL SCALE) 1 ACHS SLIDING SCALE SQ Last administered on 06/28/17 11:24; Start 06/22/17 at 21:00; Status Future hold Regadenoson (Lexiscan Inj) 0.4 mg STK-MED ONCE IV Last administered on 11:00; Start 06/23/17 at 11:00; Stop 06/23/17 at 11:01; Status DC Paliperidone Palmitate (Invega Er) 9 mg DAILY PO ; Start 06/24/17 at 09:00; Stop 06/24/17 at 09:00; Status DC Sertraline HCl (Zoloft) 75 mg DAILY PO Last administered on 06/28/17 08:35; Start 06/24/17 at 09:00; Status Future hold Miscellaneous (Pill Splitter) 1 ea UNSCH PRN OTHER SEE LABEL COMMENTS; Start 06/23/17 at 14:45; Status Future hold Paliperidone Palmitate (Invega Er) 9 mg DAILY PO Last administered on 08:19; Start 06/24/17 at 09:00; Stop 06/25/17 at 11:23; Status DC Insulin Detemir (Levemir Inj) 20 units BID SQ Last administered on 06/26/17 09:45; Start 06/24/17 at 21:00; Stop 06/26/17 at 12:16; Status DC Paliperidone Palmitate (Invega Er) 12 mg DAILY PO Last administered on 08:34; Start 06/26/17 at 09:00; Status Future hold Paliperidone Palmitate (Invega Er) 3 mg ONCE ONCE PO Last administered on 11:30; Start 06/25/17 at 11:30; Stop 06/25/17 at 11:31; Status DC Insulin Detemir (Levemir Inj) 25 units BID SQ ; Start 06/26/17 at 21:00; Stop 06/26/17 at 21:00; Status DC Atorvastatin Calcium (Lipitor) 10 mg HS PO ; Start 06/26/17 at 21:00; Stop at 21:00; Status DC Olanzapine (ZyPREXA) 10 mg NOW ONCE PO Last administered on 06/26/17 18:48; Start 06/26/17 at 19:00; Stop 06/26/17 at 19:01; Status DC Insulin Detemir (Levemir Inj) 20 units BID SQ ; Start 06/27/17 at 09:00; Stop 06/27/17 at 09:00; Status DC Acetaminophen (Tylenol) 650 mg Q4H PRN PO Temp >101F; Start 06/26/17 at 20:30 Atorvastatin Calcium (Lipitor) 10 mg HS PO Last administered on 06/27/17 20: 54; Start 06/26/17 at 21:00 Ergocalciferol (Drisdol) 50,000 units Q7D PO Last administered on 06/27/17 15 :00; Start 06/27/17 at 11:00 Insulin Detemir (Levemir Inj) 25 units BID SQ Last administered on 06/28/17 09:00; Start 06/26/17 at 21:00; Stop 06/28/17 at 12:03; Status DC Quetiapine Fumarate (SEROquel) 50 mg BID@1600,2100 PO Last administered on 16:00; Start 06/27/17 at 16:00 Insulin Detemir (Levemir Inj) 30 units BID SQ ; Start 06/28/17 at 21:00 Urinary Catheter: No A/P Assessment and Plan This is a 42-year-old female with suicidal ideation, we were consulted for abdominal pain //Suicidal ideation: with a plan. Management per psychiatry //Abdominal pain:. Resolved. Patient complained of abdominal pain of 9/10 although when I came in pt was sleeping and appeared comfortable. she complains of pain w deep palpation diffusely although she only really grimaces w palpation in the RUQ/epigastric area. This has resolved. Workup is negative, lipase is normal, KUB negative, ultrasound showed hepatic steatosis and biliary sludge. Monitor for now. = Patient continues on H2 evgeny. //Chest pain-could be psychiatric. EKG reviewed no acute findings, no ischemic changes. Troponin negative x2. = 06/22.. D-dimer negative. Serial troponins negative. EKG no change. Appreciate cardiology assistance. Request records from primary oracle database developer. = 06/23 Cardiology following. Echocardiogram pending. Outside records pending - had stress test- EF IS 70% 11-15 SUSPECT PSYCHIATRIC ISSUE //Bilateral leg pain. Expect this is secondary to fibromyalgia related to untreated sleep apnea. We'll check ultrasound to rule out DVT. = 06/22. Ultrasound negative for DVT. //CHF: heart healthy diet, fluid restriction 1800ml/day. BB and bumex resumed. = 06/22. Slight bump in creatinine to 1.1. Will liberalize slightly fluid restrictions. Due to monitor. //COPD: stable, on home oxygen. Duoneb prn. home meds resumed //HTN: stable. on home meds. added vasotec IV and clonidine prn for BP's >160/ 90. Continue lisinopril. //Hypovitaminosis D. Continue replacement. //IDDM: on levemir. = Increase Levemir to 16 units twice daily. = 06/22. Glucose in 300s. Switch sliding scale to high dose sliding scale. Continue to monitor. = 06/23. Glucose 120s this morning, temperature. Continue to monitor. 11-16 SUGARS ELEVATED BUT IS NONCOMPLIANT WITH DIET INCREASE LEVEMIR TO 25 UNITS SUBQ BID 11-17 MONITOR BLOOD SUGARS -18 INCREASE TO 30 UNITS SUBQ BID MALIGNANT MEDICAL NONCOMPLIANCE- APPEARS TO LIKE TO BE IN THE HOSPITAL LIKES TO SAY HAS CHEST PAIN WHEN SHE LOOKS PERFECTLY COMFORTABLE Obesity recommend weight loss Discharge Planning Has chronic pain that I will never fix Anurag Mcdaniels DO Jun 28, 2017 15:27
--- NOTE | 2017-06-28 15:35 | HHI.PYPN ---
Subjective Remarks Pt seen and discussed with staff. She remains on 1:1 due to self harm behaviors. She has been engaging in splitting behaviors with staff, but has today been interacting more on milieu. She is compliant with medications and denies side effects. She reports that her mood is depressed but she is doing "a bit better". Mental Status Examination Appearance: Disheveled Consciousness: Alert Orientation: x4 Motor Activity: Normal gait Speech: Unremarkable Language: Adequate Fund of Knowledge: Adequate Attention and Concentration: Adequate Memory: Unremarkable Mood: Irritable Affect: Blunt, Other (guarded) Thought Process & Associations: Intact, Linear Thought Content: Hallucinations Delusion Type: Paranoid Suicidal Ideation: Yes (vague, intermittent) Suicidal Plan: Yes (none voiced) Suicidal Intention: No Homicidal Ideation: No Homicidal Plan: No Homicidal Intention: No Insight: Poor Judgment: Poor Results Vitals/IOs Vital Signs Date Time Temp Pulse Resp B/P (MAP) Pulse Ox O2 Delivery O2 Flow Rate FiO2 06/28/17 11:58 99.2 120 20 145/75 (98) 99 06/28/17 10:18 Nasal Cannula 3.00 Intake and Output 06/28/17 06/28/17 06/29/17 08:00 16:00 00:00 Intake Total 360 ml 480 ml Balance 360 ml 480 ml Assessment & Plan Problem List: (1) Adjustment disorder with depressed mood ICD Codes: F43.21 - Adjustment disorder with depressed mood Assessment & Plan Continue current tx plan. Estimated LOS: days Justification for Cont. Inpt. impairments in safety Angelica Clark MD Jun 28, 2017 15:35
[2017-06-28] MEDS: QUEtiapine FUMARATE 25 MG TAB PO SCH ×2 (17:11→21:46)
[2017-06-28 17:36] VITALS: BP 120/60; PULSE 104; RESP 18; TEMP 98.5; O2SAT 98
[2017-06-28] MEDS: ATORVASTATIN 10 MG TAB PO SCH (21:31)
[2017-06-29 05:51] VITALS: BP 146/56; PULSE 103; RESP 18; TEMP 98.2; O2SAT 97
[2017-06-29] MEDS: RIVAROXABAN 20 MG TAB PO SCH (08:32)
[2017-06-29] MEDS: METOPROLOL TARTRATE 50 MG TAB PO SCH ×3 (08:32→17:11)
[2017-06-29] MEDS: SERTRALINE HCL 50 MG TAB PO SCH (08:33)
[2017-06-29] MEDS: BUMETANIDE 1 MG TAB PO SCH (08:33)
[2017-06-29] MEDS: LISINOPRIL 5 MG TAB PO SCH (08:33)
[2017-06-29] MEDS: DOCUSATE SODIUM 100 MG CAP PO SCH ×2 (08:33→20:27)
[2017-06-29] MEDS: PALIPERIDONE ER 3 MG TAB PO SCH (08:34)
[2017-06-29] MEDS: clonazePAM 0.5 MG TAB PO SCH ×2 (08:34→20:28)
[2017-06-29] MEDS: INSULIN ASPART SUPPLEMENTAL SCALE SQ SCH ×4 (08:36→20:24)
[2017-06-29] MEDS: INSULIN DETEMIR 100 UNITS/ML VIAL SQ SCH ×2 (08:36→20:26)
[2017-06-29] MEDS: FAMOTIDINE 20 MG TAB PO SCH ×2 (08:39→20:27)
[2017-06-29] MEDS: BUDESONIDE-FORMOTEROL 80/4.5 MCG INHALER INH SCH ×2 (08:39→20:26)
[2017-06-29] MEDS: SUCRALFATE 1 GM TAB PO SCH ×4 (10:25→20:27)
--- NOTE | 2017-06-29 10:43 | HHI.PR ---
Subjective Remarks Follow-up for abdominal pain, hyperglycemia Patient not compliant with diet, no overnight events, no shortness of breath. On oxygen. Objective Vitals Vital Signs Date Time Temp Pulse Resp B/P (MAP) Pulse Ox O2 Delivery O2 Flow Rate FiO2 06/29/17 10:21 Nasal Cannula 3.00 06/29/17 05:51 98.2 103 18 146/56 (86) 97 06/28/17 22:23 Nasal Cannula 3.00 06/28/17 17:36 98.5 104 18 120/60 (80) 98 06/28/17 11:58 99.2 120 20 145/75 (98) 99 I/O 06/28/17 06/28/17 06/28/17 06/29/17 06/29/17 06/29/17 06:59 14:59 22:59 06:59 14:59 22:59 Intake Total 360 ml 480 ml 240 ml 360 ml Balance 360 ml 480 ml 240 ml 360 ml Intake Oral 360 ml 480 ml 240 ml 360 ml # Voids 1 Objective Remarks GENERAL: This is an obese pt, somewhat unkept. Flat affect. CARDIOVASCULAR: Regular rate and rhythm without murmurs RESPIRATORY: Clear to auscultation. Poor effort. GASTROINTESTINAL: Abdomen soft, nontender at all. MUSCULOSKELETAL: No edema. NEUROLOGICAL: Awake and alert. Cranial nerves II through XII appear grossly intact. moves extremities. Normal speech. Procedures NONE A/P Assessment and Plan This is a 42-year-old female with suicidal ideation, we were consulted for abdominal pain Suicidal ideation: with a plan. Management per psychiatry Abdominal pain: Resolved. Workup is negative, lipase is normal, KUB negative, ultrasound showed hepatic steatosis and biliary sludge. Monitor for now. Continue H2 evgeny and sucralfate, she always complains of abdominal pain. Possibly psychiatric in nature. Chest pain-could be musculoskeletal versus psychiatric, workup negative including d-dimer, serial troponins, EKG, cardiology has seen the patient. Echocardiogram showed ejection fraction of 70%. No further workup. Continue statins, metoprolol, she always complains of chest pain, myocardial perfusion scan negative. 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 BB and bumex resumed. monitor K levels Hypovitaminosis D-continue vitamin D weekly high-dose force 8 weeks followed by 800-1000 units vitamin D daily. COPD: stable, on home oxygen. Duoneb prn, continue Symbicort. HTN: stable. on home meds. added vasotec IV and clonidine prn for BP's >160/90. Continue lisinopril, metoprolol. DM: Gross noncompliance with diet, Levemir increased to 30 units twice a day, will keep this dose for now. Continue statin scale insulin. Leg pain-ruled out DVT, ultrasound Doppler negative. Likely secondary to fibromyalgia. No active issues, we will sign off. Please call with questions. Mary Dillon MD Jun 29, 2017 10:42
[2017-06-29] MEDS ORDERED: VITA1000 PO (10:48)
[2017-06-29] MEDS ORDERED: LEVEMIR SQ (10:48)
[2017-06-29 12:03] VITALS: BP 134/68; PULSE 109
--- NOTE | 2017-06-29 13:56 | HHI.PYPN ---
Subjective Remarks Pt seen and discussed with staff. She continues to engage in splitting behavior. She remains on 1:1 for self-harm and endorsed suicidal ideations. No HI. Compliant with medications. Mental Status Examination Appearance: Disheveled Consciousness: Alert Orientation: x4 Motor Activity: Normal gait Speech: Unremarkable Language: Adequate Fund of Knowledge: Adequate Attention and Concentration: Adequate Memory: Unremarkable Mood: Irritable Affect: Blunt, Other (guarded) Thought Process & Associations: Intact, Linear Thought Content: Hallucinations Delusion Type: Paranoid Suicidal Ideation: Yes (vague, intermittent) Suicidal Plan: Yes (none voiced) Suicidal Intention: No Homicidal Ideation: No Homicidal Plan: No Homicidal Intention: No Insight: Poor Judgment: Poor Results Vitals/IOs Vital Signs Date Time Temp Pulse Resp B/P (MAP) Pulse Ox O2 Delivery O2 Flow Rate FiO2 06/29/17 12:03 109 134/68 (90) 06/29/17 10:21 Nasal Cannula 3.00 06/29/17 05:51 98.2 18 97 Intake and Output 06/29/17 06/29/17 06/30/17 08:00 16:00 00:00 Intake Total 360 ml Balance 360 ml Assessment & Plan Problem List: (1) Adjustment disorder with depressed mood ICD Codes: F43.21 - Adjustment disorder with depressed mood Assessment & Plan Continue current tx plan. Estimated LOS: days Justification for Cont. Inpt. monitoring for safety Angelica Clark MD Jun 29, 2017 13:56
[2017-06-29] MEDS: QUEtiapine FUMARATE 25 MG TAB PO SCH ×2 (17:11→20:52)
[2017-06-29 17:28] VITALS: BP 128/76; PULSE 109; RESP 17; TEMP 98; O2SAT 98
[2017-06-29] MEDS: ATORVASTATIN 10 MG TAB PO SCH (20:28)
[2017-06-29] MEDS: ACETAMINOPHEN/HYDROcodone 325 MG/5 MG TAB PO PRN (20:52)
[2017-06-30 06:26] VITALS: BP 123/67; PULSE 78; RESP 17; TEMP 98; O2SAT 98
[2017-06-30] MEDS: INSULIN ASPART SUPPLEMENTAL SCALE SQ SCH ×2 (08:00→12:00)
[2017-06-30] MEDS: FAMOTIDINE 20 MG TAB PO SCH (09:00)
[2017-06-30] MEDS: INSULIN DETEMIR 100 UNITS/ML VIAL SQ SCH (09:00)
[2017-06-30] MEDS: SUCRALFATE 1 GM TAB PO SCH ×2 (09:17→13:00)
[2017-06-30] MEDS: METOPROLOL TARTRATE 50 MG TAB PO SCH ×2 (09:17→13:00)
[2017-06-30] MEDS: LISINOPRIL 5 MG TAB PO SCH (09:17)
[2017-06-30] MEDS: PALIPERIDONE ER 3 MG TAB PO SCH (09:17)
[2017-06-30] MEDS: clonazePAM 0.5 MG TAB PO SCH (09:17)
[2017-06-30] MEDS: SERTRALINE HCL 50 MG TAB PO SCH (09:17)
[2017-06-30] MEDS: DOCUSATE SODIUM 100 MG CAP PO SCH (09:18)
[2017-06-30] MEDS: BUMETANIDE 1 MG TAB PO SCH (09:18)
[2017-06-30] MEDS: BUDESONIDE-FORMOTEROL 80/4.5 MCG INHALER INH SCH (09:18)
[2017-06-30] MEDS: RIVAROXABAN 20 MG TAB PO SCH (09:19)
--- NOTE | 2017-06-30 11:30 | PD.TTN ---
Patient Problems 1. Discharge planning 2. Medication compliance 3. Knowledge deficit 4. Lack of coping skills Progress Toward Goals Provider Present: Dr. Marvin Montelongo Provider Input: 06/25/2017 @ 8am per doctor patient continues with SI behavior, and could benefit from a different setting; patient's medication continues to be monitor and adjustment made as needed. 06/23/2017: Per Dr. Montelongo, he would like to try patient without a sitter if no further report of suicidal ideation. Patiet's medication is still be adjusted Patient is a new admission, after assessment a treatment plan and medication needs will be schedule/and adjustments made 06/30/17 Patient is doing better and will be discharged to facililty Nurse(s) Present: ZAIN Metcalf Nurse(s) Input: 06/25/2017 @ 8am; patient is bieng transferred to [facility] for more monitoring. Patient is eating and taking her medication; however she continue to verbalize SI 06/23/2017 Per Ida Gentile RN patient voice that she is having auditory hallucination, states patient is eating and taking her medication Patient is eating meals, medication will be discuss with treating doctor, patient is making suicidal ideation 06/30/2017 Patient is medication compliant, demanding, attention seeking. Psychiatric Counselors Present: Kailey Salazar [facility] Psych Therapist Input: 06/25/2017; counselor will continue to review behavior and SI contract with patient; Level I and 3008 has been updated and fax to [facility] 06/23/2017: Counselor has provided patient with a package surrounding mood, and behavior treatment Treatment plan will be developed with patient, patient will be encouraged with mood and group participation 06/30/17 Patient is medication compliant, eating and sleeping well. Patient states she is still having suicidal ideation, but denies homicidal ideation. Patient's statements are not conquent with patient's behavior. Patient wanted to attend fresh air, patient is social, found in dayroom. Patient is attention seeking and most of patients concerns are behavioral. Patient's level two has been completed and patient will return back to her facility [facility], located on [address], [place] Group Spec/RT/OT/ARIAS Present: JUANA Boateng, Laureano Rodríguez OT Group Spec/RT/OT/ARIAS Input: 06/25/2017; per OT, patient continues to attend selective groups 06/23/2017; per OT, patient attend selective groups Patent is new activies will be review with patient 06/30/17 Patient attends all groups. Patient demonstrates very demanding behaviors. Documentation Scribe: Skylar Soliman Kailey Fowler Jun 30, 2017 11:30
[2017-06-30] MEDS ORDERED: DOCU1CAP39 PO (13:00)
[2017-06-30] MEDS ORDERED: ZOLO50TA PO (13:00)
[2017-06-30] MEDS ORDERED: QUET5TAB PO (13:00)
[2017-06-30] MEDS ORDERED: LISI-519 PO (13:00)
[2017-06-30] MEDS ORDERED: PALI1TAB3 PO (13:00)
--- NOTE | 2017-06-30 13:06 | HHI.DS ---
Psychiatry Discharge Summary Inpatient Psychiatric care?: Yes Advance Directive: No Reason Not Provided: EDUCATION PROVIDED Mental Health AdvanceDirective: No Health Care Proxy: No Admission Admission Date Jun 17, 2017 at 14:56 Admission Diagnosis: (1) Adjustment disorder with depressed mood ICD Code: F43.21 - Adjustment disorder with depressed mood Brief History This is a 42-year-old female brought in under a García act for suicidal ideation and behavior. Apparently she is a resident at [facility], an assisted living facility. She appears to be institutionalized, a on her manner and dress. She is also wearing a nasal cannula and receives 3 L of oxygen per minute. The psychiatrist that attends to this SHELTER García acted the patient. She reportedly has a history of bipolar disorder, depression and anxiety. She told the psychiatrist and staff members here at [facility] that she is hearing voices telling her to cut her wrists. She indicated the same information to this physician. She has a history of multiple prior attempts to harm herself and has been hospitalized on multiple occasions. She admits to increasing symptoms of depression, including depressed mood, anhedonia, feeling hopeless and helpless not, decreased self-esteem, social withdrawal, sleep disturbance, and suicidal ideation with plan. In fact, she states she is experiencing command auditory hallucinations telling her to kill herself. Tobacco Use In Past 30 Days: No Tobacco Past 30 Days Alcohol Use: Never Hospital Course Patient is a 42 y/o woman, single, unemployed on SSI, domiciled at [facility], with a past psychiatric history of schizoaffective disorder with multiple psychiatric admissions, multiple suicide attempts as per patient, who was brought under García Act for suicidal ideation with plan and intent to cut her wrists as well as auditory hallucinations command type to cut her wrists which she was transferred to the inpatient psychiatry unit for further evaluation and management. Patient was started continued on ziprasidone but cross tapered with paliperidone and titrated up to 12 mg by mouth daily for psychosis, continued on clonazepam 0.5 mg by mouth twice a day, started on quetiapine 50 mg by mouth twice a day, and started on sertraline and titrated up to 75 mg by mouth daily for depressive symptoms, the patient continued medications for medical issues as per primary medical team. Patient initially was endorsing suicidal ideations along with command auditory hallucinations hurt herself which patient was placed on one-to-one observation for safety. As medications were titrated up patient continued to endorse same and at times wouldnt be noted to be pulling her hair when consideration of removing one-to-one sitter was brought up. Patient during admission was noted to be inconsistent with endorsing suicide ideation says she would state she was not suicidal with the goal of participating in some groups and activities and after returning back to her unit for continued to endorse through continues to maintain staff presents with her. Patient continue with treatment and was noted to have improvement of mood , was noted to be cooperative with staff as well as participatory in conversations with other peers on the unit. Patient was noted to have improvement of insight and judgment as well as impulse control with no recent self-injurious behavior such as pulling her hair out. Patient was adherent to medication regimen and recommendations as per primary medical team. Upon discharge patient stated feeling good, stated feeling okay with returning back to her residence, was calm and cooperative with staff, attended groups and activities. She agreed to continuing medical recommendations, treatment and attend outpatient follow up appointments for continuity of care. Patient will be discharged back to her residence. Patient; denies SI, HI, AVH or delusions. Supportive psychotherapy provided. Patient advised to call 911 or return back to the ED in case of any emergency. Patient agrees with plan. Results Blood Pressure 123 / 67 Vital Signs Date Time Temp Pulse Resp B/P (MAP) Pulse Ox O2 Delivery O2 Flow Rate FiO2 06/30/17 06:26 98.0 78 17 123/67 (85) 98 06/29/17 21:59 Nasal Cannula 3.00 Laboratory Results Test 06/18/17 14:20 Cholesterol Level 191 MG/DL (120-200) HDL Cholesterol 42.0 MG/DL (40.0-60.0) Hemoglobin A1c 8.5 % (4.3-6.0) LDL Cholesterol 70 MG/DL (0-99) Triglycerides Level 396 MG/DL (42-150) Summary of Procedures None Imaging Last Impressions Myocardial Perfusion Scan Nuc Med 06/23/17 0000 Signed Impressions: Service Date/Time: Friday, June 23, 2017 10:44 - CONCLUSION: No reversible defects observed to suggest acute ischemia. RISK CATEGORY: Low Jose Rojas Jr., MD Lower Extremity Ultrasound 06/21/17 0000 Signed Impressions: Service Date/Time: Wednesday, June 21, 2017 17:14 - CONCLUSION: No DVT is identified within either lower extremity. Hesham Sykes MD Chest X-Ray 06/21/17 0000 Signed Impressions: Service Date/Time: Wednesday, June 21, 2017 15:22 - CONCLUSION: 1. Hypoinflation with no acute infiltrate. 2. Borderline prominent but well compensated heart Dorian Adamson MD Gall Bladder Ultrasound 06/19/17 0000 Signed Impressions: Service Date/Time: June 08:30 - CONCLUSION: Likely hepatic steatosis. Mild gallbladder sludge Hesham Tomas MD Abdomen X-Ray 06/18/17 0000 Signed Impressions: Service Date/Time: Sunday, June 18, 2017 16:33 - CONCLUSION: 1. Gas distended stomach with an otherwise normal bowel gas pattern. Jose Rojas Jr., MD Pending results at discharge: No Medications # of Antipsychotic meds at D/C: 2 Appropriate >1 Antipsych meds?: 4 (patient had cross tapering onto second to the psychotic which again was not sufficient and found to have more response with the addition of quetiapine to her regimen which improved her mood and decrease psychotic symptoms.) Approp Antipsych med options 1 - Minimum of three failed multiple trials of monotherapy. 2 - Documented plan to taper to monotherapy due to previous use of multiple meds OR cross-taper in progress at D/C. 3 - Documentation of augmentation of Clozapine. 4 - Justification other than those listed in allowable values 1-3, document here : Discharge Discharge Date: Jun 30, 2017 Discharge Diagnosis: (1) Adjustment disorder with depressed mood Diagnosis: Principal ICD Code: F43.21 - Adjustment disorder with depressed mood Pt Condition on Discharge: Stable Discharge Disposition: ACLF/SHELTER Discharge Instructions Diet Instructions: Heart Healthy Diet Discharge Time > 30 minutes Mental Status Examination Appearance: Appropriate Consciousness: Alert Orientation: x4 Motor Activity: Normal gait Speech: Unremarkable Language: Adequate Fund of Knowledge: Adequate Attention and Concentration: Adequate Memory: Unremarkable Mood: Good Affect: Other (restricted) Thought Process & Associations: Intact, Linear Thought Content: Appropriate Hallucination Type: None Delusion Type: None Suicidal Ideation: No Suicidal Plan: No Suicidal Intention: No Homicidal Ideation: No Homicidal Plan: No Homicidal Intention: No Insight: Fair Judgment: Impulsive Discharge/Advance Care Plan Health Problems: (1) Adjustment disorder with depressed mood Goals to promote your health * To prevent worsening of your condition and complications * To maintain your health at the optimal level Directions to meet your goals Take your medications as prescribed Follow your dietary instruction Follow activity as directed Keep your appointments as scheduled Take your immunizations and boosters as scheduled If your symptoms worsen call your PCP, if no PCP go to Urgent Care Center or Emergency Room For 03/03 questions related to your inpatient stay or results of tests pending at discharge, please contact Dr. Jah Montelongo at Smoking is Dangerous to Your Health. Avoid second hand smoking Jah Montelongo MD Jun 30, 2017 13:06
== END 2017-06-30 15:10 | DRG 881 ==
LOC: NEPD 18:53 → NEDA 06-17 14:56 → H4EA 06-17 15:42 → H260 06-25 14:45
PROVIDERS: ADMIT Student in an Organized Health Care Education/Training Program; ATTEND Student in an Organized Health Care Education/Training Program
DX: F43.21 Adjustment disorder with depressed mood (principal); I50.9 Heart failure, unspecified; R45.851 Suicidal ideations; I11.0 Hypertensive heart disease with heart failure; Z68.43 Body mass index [BMI] 50.0-59.9, adult; F41.9 Anxiety disorder, unspecified; J44.9 Chronic obstructive pulmonary disease, unspecified; I25.10 Atherosclerotic heart disease of native coronary artery without angina pectoris; E11.65 Type 2 diabetes mellitus with hyperglycemia; E66.01 Morbid (severe) obesity due to excess calories; Z99.81 Dependence on supplemental oxygen; F22 Delusional disorders; F25.9 Schizoaffective disorder, unspecified; F31.9 Bipolar disorder, unspecified; K76.0 Fatty (change of) liver, not elsewhere classified; R07.89 Other chest pain; K59.00 Constipation, unspecified; M79.7 Fibromyalgia; G47.30 Sleep apnea, unspecified; E55.9 Vitamin D deficiency, unspecified; Z79.01 Long term (current) use of anticoagulants; Z79.4 Long term (current) use of insulin; Z88.1 Allergy status to other antibiotic agents; Z88.6 Allergy status to analgesic agent; Z91.5 Personal history of self-harm; Z91.19 Patient's noncompliance with other medical treatment and regimen; Z91.11 Patient's noncompliance with dietary regimen
CPT/HCPCS: 71010; 74000; 76705; 76937; 78452; 80053; 80061; 80069; 80074; 80307; 82306; 82550; 82607; 82948; 83036; 83690; 83735; 84443; 84484; 85025; 85379; 93005; 93017; 93306; 93970; 96372; A9502; J1650; J1815; J2270; J2785; Q0163

== ENCOUNTER 2017-09-08 22:28 | Inpatient (IN) | payer MEDICARE, OTHER ==
[~2017-09-08] VITALS: Ht 149.9 cm; Wt 120.8 kg
[~2017-09-08 22:28] MED LIST changes: -ADVA100A; -ALBU17I; +BUME1TAB PO; +CLON.5 PO; -DILT60TA; +DOCU1CAP39 PO; +DULC10SU3 RECTAL; +ENEMENE5; +FAMO1TAB37 PO; +FERR325T86 PO; -GLIP5; +HYDR-3516 PO; +LANTUS2P SQ; +LEVEMIR SQ; +LISI-519 PO; +METO50TA PO; +MILKSUS PO; +NITR1SUB3 SL; -NOVORP2; +PALI1TAB3 PO; +PAXI30TA7 PO; +QUET5TAB PO; +ROSU1TAB4 PO; +SUCR1TAB PO; +SYMB80AE INH; +VITA1000 PO; +XARE20TA PO; -Z.0.BCPILL; +ZIPR1CAP12 PO; +ZOLO50TA PO; +[UNRECOGNIZED DRUG - CODE] PO
[2017-09-08 23:01] VITALS: BP 160/80; PULSE 101; RESP 16; TEMP 98.4; O2SAT 96
--- NOTE | 2017-09-09 01:23 | PD ---
HPI Chief Complaint: Psychiatric Symptoms Time Seen by Provider: 01:09 Travel History International Travel<30 days: No Contact w/Intl Traveler<30days: No Traveled to known affect area: No History of Present Illness HPI This is a 42-year-old female presents emergency department on a voluntary basis from her [facility], on 3 L nasal cannula at home. Patient has a history of bipolar disorder, depression, anxiety, auditory hallucinations, congestive heart failure , COPD on nasal O2. Patient states that she's been feeling increasingly depressed and having auditory hallucinations. She states that the voices have been telling her to kill herself by cutting her wrists. She denies any drug or alcohol use. She reports that she has been compliant with all medications. She has had some congestion and cough with some pleuritic chest wall pain. PFSH Past Medical History Asthma: Yes Autoimmune Disease: No Anxiety: Yes Depression: Yes Cancer: No Cardiovascular Problems: Yes High Cholesterol: Yes Congestive Heart Failure: Yes COPD: Yes Coronary Artery Disease: Yes Diabetes: Yes (DM II) Diminished Hearing: No Endocrine: Yes Genitourinary: No Hypertension: Yes Immune Disorder: No Musculoskeletal: No Neurologic: Yes Psychiatric: Yes (BIPOLAR DISORDER) Reproductive: Yes (POLY-CYSTIC OVARIAN DISEASE; NO PERIOD FOR MONTHS, ON BCPS) Respiratory: Yes Seizures: Yes (LAST ONE MARCH 2017-NO PRESCRIBED MEDICATIONS) Past Surgical History Eye Surgery: Yes (left eye surgery for lazy eye ) Tonsillectomy: Yes Social History Alcohol Use: No Tobacco Use: No Substance Use: No Allergies-Medications (Allergen,Severity, Reaction): Coded Allergies: meperidine (Unverified Allergy, Severe, 09/09/17) Sarai House Dust (Unverified Allergy, Intermediate, Sneezing, 09/09/17) NSAIDS (Non-Steroidal Anti-Inflamma (Unverified Adverse Reaction, Intermediate, Hives, 09/09/17) aspirin (Unverified Adverse Reaction, Intermediate, Hives, 09/09/17) ciprofloxacin (Unverified Adverse Reaction, Intermediate, Hives, 09/09/17) Reported Meds & Prescriptions Reported Meds & Active Scripts Active Dok (Docusate Sodium) 100 Mg Cap 100 Mg PO BID 30 Days Quetiapine (Quetiapine Fumarate) 50 Mg Tab 50 Mg PO BID@1600,2100 Zoloft (Sertraline HCl) 50 Mg Tab 75 Mg PO DAILY 30 Days Levemir Inj (Insulin Detemir) 1,000 unit/ 10 ML Vial 30 Units SQ BID Do not mix with any other Insulin. Reported Benztropine (Benztropine Mesylate) 0.5 Mg Tab 1 Mg PO BID Miralax Powder (Polyethylene Glycol 3350 Powder) 17 Gm Powd 17 Gm PO DAILY Mix and dissolve one measuring cap-ful (17 grams) in water or juice. Trazodone (Trazodone HCl) 100 Mg Tablet 100 Mg PO HS Risperidone 1 Mg Tab 1 Mg PO DAILY Risperdal (Risperidone) 4 Mg Tab 4 Mg PO HS Oxcarbazepine 600 Mg Tab 600 Mg PO HS Oxcarbazepine 300 Mg Tab 300 Mg PO DAILY Symbicort Inh (Budesonide/Formoterol Fumarate) 80-4.5 Mcg/Act Aero 2 Puff INH Q12HR Milk of Magnesia Liq (Magnesium Hydroxide) 400 Mg/5 Ml Susp 60 Ml PO DAILY PRN Metoprolol Tartrate 50 Mg Tab 50 Mg PO TID Lantus Inj (Insulin Glargine) 1,000 Unit/10 Ml Vial 10 Units SQ BID Klonopin (Clonazepam) 0.5 Mg Tab 0.5 Mg PO BID Enema Disposable (Sodium Phosphates) 19 Gram-7 Gram/118 Ml Rin Dulcolax Supp (Bisacodyl) 10 Mg Supp 10 Mg RECTAL DAILY PRN Bumetanide 1 Mg Tab 1 Mg PO DAILY Sm Womans Laxative (Bisacodyl) 5 Mg Tab 10 Mg PO Review of Systems General / Constitutional: No: Fever Eyes: No: Visual changes HENT: No: Headaches Cardiovascular: Positive: Chest Pain or Discomfort Respiratory: Positive: Cough, No: Shortness of Breath Gastrointestinal: No: Nausea, Vomiting, Diarrhea, Abdominal Pain Genitourinary: No: Dysuria Musculoskeletal: Positive: Arthralgias, Limited ROM, Pain Skin: No Rash Neurologic: No: Weakness Psychiatric: Positive: Depression, Suicidal Ideations, Mood Disorder, No: Anxiety, Disorder of Thought, Substance Abuse, Homicidal Ideation Endocrine: No: Polydipsia Hematologic/Lymphatic: No: Easy Bruising Physical Exam Narrative GENERAL: Morbidly obese, well-developed patient. On nasal cannula O2 SKIN: Warm and dry. Chronic venous stasis changes. No signs of any active cellulitis. HEAD: Normocephalic and atraumatic. EYES: No scleral icterus. No injection or drainage. ENT: No nasal drainage noted. Mucous membranes pink. Airway patent. NECK: Supple, trachea midline. Moves head freely without obvious discomfort. CARDIOVASCULAR: Regular rate and rhythm without murmurs, gallops, or rubs. RESPIRATORY: Breath sounds equal bilaterally. No accessory muscle use. GASTROINTESTINAL: Abdomen soft, non-tender, nondistended. EXTREMITIES: No cyanosis +1 pedal edema. BACK: Nontender without obvious deformity. No CVA tenderness. NEURO: Patient is alert and oriented. no sensorimotor deficits. Nonfocal. Normal speech. PSYCH: No delusions. No auditory or visual hallucinations. Data Data Last Documented VS Vital Signs Date Time Temp Pulse Resp B/P (MAP) Pulse Ox O2 Delivery O2 Flow Rate FiO2 09/09/17 01:20 20 09/08/17 23:01 98.4 101 160/80 (106) 96 Room Air Orders Orders Complete Blood Count With Diff (09/09/17 01:24) Comprehensive Metabolic Panel (09/09/17 01:24) Thyroid Stimulating Hormone (09/09/17 01:24) Urinalysis - C+S If Indicated (09/09/17 01:24) Psych Screen (09/09/17 01:24) Drug Screen, Random Urine (09/09/17 01:24) Alcohol (Ethanol) (09/09/17 01:24) Influenzae A/B Antigen (09/09/17 01:24) Chest, Single Ap (09/09/17 01:24) Ed Urine Pregnancytest Poc (09/09/17 01:24) Insulin Human Regular Inj (Novolin R Inj (09/09/17 02:30) Acetaminophen (Tylenol) (09/09/17 02:30) Labs Laboratory Tests Test 09/09/17 01:40 09/09/17 01:45 White Blood Count 7.2 TH/MM3 Red Blood Count 4.07 MIL/MM3 Hemoglobin 11.9 GM/DL Hematocrit 36.1 % Mean Corpuscular Volume 88.7 FL Mean Corpuscular Hemoglobin 29.3 PG Mean Corpuscular Hemoglobin Concent 33.0 % Red Cell Distribution Width 14.5 % Platelet Count 275 TH/MM3 Mean Platelet Volume 6.2 FL Neutrophils (%) (Auto) 77.9 % Lymphocytes (%) (Auto) 14.2 % Monocytes (%) (Auto) 6.9 % Eosinophils (%) (Auto) 0.6 % Basophils (%) (Auto) 0.4 % Neutrophils # (Auto) 5.6 TH/MM3 Lymphocytes # (Auto) 1.0 TH/MM3 Monocytes # (Auto) 0.5 TH/MM3 Eosinophils # (Auto) 0.0 TH/MM3 Basophils # (Auto) 0.0 TH/MM3 CBC Comment DIFF FINAL Differential Comment Blood Urea Nitrogen 15 MG/DL Creatinine 0.72 MG/DL Random Glucose 260 MG/DL Total Protein 7.7 GM/DL Albumin 3.5 GM/DL Calcium Level 8.6 MG/DL Alkaline Phosphatase 112 U/L Aspartate Amino Transf (AST/SGOT) 16 U/L Alanine Aminotransferase (ALT/SGPT) 43 U/L Total Bilirubin 0.1 MG/DL Sodium Level 137 MEQ/L Potassium Level 4.0 MEQ/L Chloride Level 98 MEQ/L Carbon Dioxide Level 33.0 MEQ/L Anion Gap 6 MEQ/L Estimat Glomerular Filtration Rate 90 ML/MIN Thyroid Stimulating Hormone 3rd Gen 0.641 uIU/ML Ethyl Alcohol Level LESS THAN 3 MG/DL Urine Color YELLOW Urine Turbidity CLEAR Urine pH 6.0 Urine Specific Flomot 1.028 Urine Protein TRACE mg/dL Urine Glucose (UA) 150 mg/dL Urine Ketones NEG mg/dL Urine Occult Blood NEG Urine Nitrite NEG Urine Bilirubin NEG Urine Urobilinogen LESS THAN 2.0 MG/DL Urine Leukocyte Esterase NEG Urine RBC 2 /hpf Urine WBC 1 /hpf Urine Squamous Epithelial Cells <1 /hpf Urine Hyaline Casts 1 /lpf Urine Mucus FEW /lpf Microscopic Urinalysis Comment CULT NOT INDICATED MDM Medical Decision Making Medical Screen Exam Complete: Yes Emergency Medical Condition: Yes Medical Record Reviewed: Yes Interpretation(s) Chest x-ray: Negative for acute infiltrate. No congestive failure. Positive cardiomegaly Differential Diagnosis MDM: High Differential diagnoses: Schizophrenia, schizoaffective disorder, bipolar, anxiety, depression, adjustment reaction, mood disorder NOS, ODD, depressive disorder NOS, dementia, dementia with agitation, psychosis NOS, substance induced mood disorder, DMDD, Asperger syndrome, infection,electrolyte abnormality, malingering. Narrative Course Mental health screening discussed with the patient. Psychiatric screen ordered. The patient is asked for morphine for her chronic back pain. The patient is given 650 mg of Tylenol by mouth. Her glucose is 260 this is treated with 3 units of Regular Insulin subcutaneous. Patient's remaining laboratory tests are within limits. X-ray is clear for infiltrate or congestive failure. This is medical clearance for psychiatric admission Diagnosis Primary Impression: Medical clearance for psychiatric admission Condition: Colin Latif Sep 09, 2017 01:23
[2017-09-09 01:53] LABS: AUTOMATED NEUTROPHIL # 5.6 TH/MM3 (1.8-7.7); BASOPHIL % 0.4 % (0.0-2.0); EOSINOPHIL % 0.6 % (0.0-4.0); HEMATOCRIT 36.1 % (35.0-46.0); HEMOGLOBIN 11.9 GM/DL (11.6-15.3); LYMPH % 14.2 % (9.0-44.0); MEAN CELL VOLUME 88.7 FL (80.0-100.0); MEAN CORPUSCULAR HEMOGLOBIN 29.3 PG (27.0-34.0); MEAN PLATELET VOLUME 6.2 FL (7.0-11.0); MONO % 6.9 % (0.0-8.0); MONOCYTE # 0.5 TH/MM3 (0-0.9); NEUT % 77.9 % (16.0-70.0); PLATELET COUNT 275 TH/MM3 (150-450); RED BLOOD COUNT 4.07 MIL/MM3 (4.00-5.30); RED CELL DISTRIBUTION WIDTH 14.5 % (11.6-17.2); WHITE BLOOD COUNT 7.2 TH/MM3 (4.0-11.0)
--- NOTE | 2017-09-09 01:57 | RADRPT ---
EXAM DATE/TIME: 09/09/2017 01:34 [facility] COMPARISON: CHEST SINGLE AP, June 21, 2017, 15:22. INDICATIONS : Short of breath. MEDICAL HISTORY : Cardiovascular disease. Hypertension. Congestive heart failure. SURGICAL HISTORY : None. ENCOUNTER: Initial ACUITY: 1 day PAIN SCORE: 0/10 LOCATION: Bilateral chest FINDINGS: A single view of the chest demonstrates the lungs to be symmetrically aerated without evidence of mas s, infiltrate or effusion. Minimal basilar atelectasis. The cardiomediastinal contours are mildly pr ominent. Osseous structures are intact. CONCLUSION: 1. Cardiomegaly. Minimal basal atelectasis. No plain film findings of congestive heart failure. Colin Escalera MD on September 09, 2017 at 1:54 Board Certified Radiologist. This report was verified electronically.
[2017-09-09 02:17] LABS: ALBUMIN 3.5 GM/DL (3.4-5.0); ALT (GPT) 43 U/L (10-53); AST (GOT) 16 U/L (15-37); BLOOD UREA NITROGEN 15 MG/DL (7-18); CALCIUM 8.6 MG/DL (8.5-10.1); CHLORIDE 98 MEQ/L (98-107); CREATININE 0.72 MG/DL (0.50-1.00); GLOMERULAR FILTRATION RATE 90 ML/MIN (>89); GLUCOSE,RANDOM 260 MG/DL (74-106); SODIUM (NA) 137 MEQ/L (136-145)
[2017-09-09 02:24] LABS: BILIRUBIN, URINE NEG (NEG); BLOOD, URINE NEG (NEG); GLUCOSE,URINE 150 mg/dL (NEG); HYALINE CAST, URINE 1 /lpf (RARE); KETONE, URINE NEG (NEG); MUCUS URINE FEW /lpf (OCC); NITRITE,URINE NEG (NEG); SQUAMOUS EPITHELIAL CELL URINE <1 /hpf (0-5); URINE COLOR YELLOW (YELLW/STRAW); URINE LEUKOCYTE ESTERASE NEG (NEG)
[2017-09-09 02:27] LABS: ALKALINE PHOSPHATASE 112 U/L (45-117); TOTAL BILIRUBIN ADULT 0.1 MG/DL (0.2-1.0); TOTAL PROTEIN 7.7 GM/DL (6.4-8.2)
[2017-09-09] MEDS ORDERED: ACETAMINOPHEN 325 MG TAB PO ONE (02:30)
[2017-09-09] MEDS ORDERED: INSULIN HUMAN REGULAR 1,000 UNITS/10 ML VIAL SQ ONE (02:30)
[2017-09-09] MEDS ORDERED: OXCA300T PO (02:32)
[2017-09-09] MEDS ORDERED: OXCA600T PO (02:32)
[2017-09-09] MEDS ORDERED: BENZ0.5T PO (02:32)
[2017-09-09] MEDS ORDERED: TRAZ100T10 PO (02:32)
[2017-09-09] MEDS ORDERED: RISP1TAB2 PO (02:32)
[2017-09-09] MEDS ORDERED: MIRA3350 PO (02:32)
[2017-09-09] MEDS ORDERED: RISP4TAB41 PO (02:32)
[2017-09-09] MEDS ORDERED: LANTUS2P SQ ×2 (02:40)
[2017-09-09] MEDS ORDERED: NOVOLOGP2 SQ (02:40)
[2017-09-09] MEDS ORDERED: GLUC4CHW CHEW (02:40)
[2017-09-09 04:59] VITALS: BP 136/80; PULSE 97; RESP 20; O2SAT 99
[2017-09-09 09:00] VITALS: BP 138/82; PULSE 82; RESP 20
--- NOTE | 2017-09-09 13:44 | PD ---
History of Present Illness Chief Complaint: Psychiatric Symptoms Time Seen by Provider: 12:55 Travel History International Travel<30 Days: No Contact w/Intl Traveler<30days: No Known affected area: No Legal Status Legal Status: Voluntary History of Present Illness: History of Present Illness HPI This is a 42-year-old female, resident of [facility], with history of bipolar disorder, anxiety, and depression who presents emergency department on a voluntary basis requesting a psychiatric evaluation with complaints of feeling increased depressed, increased anxious, irritable, racing thoughts, suicidal ideation and auditory command hallucinations that tell her to hurt herself. Plan is to cut her wrist. States that she's been feeling suicidal as well as having increase in auditory hallucinations since yesterday. No identifiable stressor although she states she is frustrated with her multiple medical conditions. No attempt at harming herself.. Reports medication compliance. Decreased sleep, decreased appetite, variable but low level of energy is reported. EMR is reviewed. She was admitted to our inpatient psychiatric unit on June 172016 for reports of auditory hallucination and suicidal ideation. The patient is seen in main ED. Obese, white female with O2 via nasal cannula, dressed in hospital gown, maintaining basic hygiene. Alert, oriented, engaging and cooperative. Affect is blunted. Mood depressed. Speech is clear and logical. Does not appear internally stimulated but consistently reports command auditory hallucinations to hurt herself. She contracts for safety in the hospital. Attention and concentration are not impaired. PFSH Past Medical History Asthma: Yes Autoimmune Disease: No Anxiety: Yes Depression: Yes Cancer: No Cardiovascular Problems: Yes High Cholesterol: Yes Congestive Heart Failure: Yes COPD: Yes Coronary Artery Disease: Yes Diabetes: Yes Patient Takes Glucophage: No Diminished Hearing: No Endocrine: Yes Genitourinary: No Hypertension: Yes Immune Disorder: No Musculoskeletal: No Neurologic: Yes Psychiatric: Yes (BIPOLAR DISORDER) Reproductive: Yes (POLY-CYSTIC OVARIAN DISEASE; NO PERIOD FOR MONTHS, ON BCPS) Respiratory: Yes Seizures: Yes (LAST ONE MARCH 2017-NO PRESCRIBED MEDICATIONS) Tetanus Vaccination: < 5 Years ?: Unknown LMP: 06/27 : 0 Para: 0 Past Surgical History Eye Surgery: Yes (left eye surgery for lazy eye ) Tonsillectomy: Yes Psychiatric History Psychiatric History Hx Psychiatric Treatment: Reports was diagnosed was bipolar disorder at age 22 years. 10+ lifetime psychiatric hospitalization. Last hospitalized at [facility]. Receives outpatient psychiatric care by provider who visits the [facility] where she lives. History of Inpatient Treatment: Yes Guns or firearms in home: No Social History Patient is a single female, never from [place]. Resides at an [facility] and has been there since May. [facility] the past 4 years. On disability. Has completed 12th grade. Hx Alcohol Use: No Hx Tobacco Use: No Hx Substance Use: No Hx of Substance Use Treatment: No Allergies-Medications (Allergen,Severity, Reaction): Coded Allergies: meperidine (Unverified Allergy, Severe, 09/09/17) Sarai House Dust (Unverified Allergy, Intermediate, Sneezing, 09/09/17) NSAIDS (Non-Steroidal Anti-Inflamma (Unverified Adverse Reaction, Intermediate, Hives, 09/09/17) aspirin (Unverified Adverse Reaction, Intermediate, Hives, 09/09/17) ciprofloxacin (Unverified Adverse Reaction, Intermediate, Hives, 09/09/17) Reported Meds & Prescriptions Reported Meds & Active Scripts Active Dok (Docusate Sodium) 100 Mg Cap 100 Mg PO BID 30 Days Quetiapine (Quetiapine Fumarate) 50 Mg Tab 50 Mg PO BID@1600,2100 Zoloft (Sertraline HCl) 50 Mg Tab 75 Mg PO DAILY 30 Days Levemir Inj (Insulin Detemir) 1,000 unit/ 10 ML Vial 30 Units SQ BID Do not mix with any other Insulin. Reported Glucose (Dextrose) 4 Gm Chew 15 Gm CHEW DIRECTED Lantus Inj (Insulin Glargine) 1,000 Unit/10 Ml Vial 50 Units SQ HS Lantus Inj (Insulin Glargine) 1,000 Unit/10 Ml Vial 25 Units SQ DAILY Novolog Inj (Insulin Aspart) 1,000 Unit/10 Ml Vial 8 Units SQ TIDAC Benztropine (Benztropine Mesylate) 0.5 Mg Tab 1 Mg PO BID Miralax Powder (Polyethylene Glycol 3350 Powder) 17 Gm Powd 17 Gm PO DAILY Mix and dissolve one measuring cap-ful (17 grams) in water or juice. Trazodone (Trazodone HCl) 100 Mg Tablet 100 Mg PO HS Risperidone 1 Mg Tab 1 Mg PO DAILY Risperdal (Risperidone) 4 Mg Tab 4 Mg PO HS Oxcarbazepine 600 Mg Tab 600 Mg PO HS Oxcarbazepine 300 Mg Tab 300 Mg PO DAILY Symbicort Inh (Budesonide/Formoterol Fumarate) 80-4.5 Mcg/Act Aero 2 Puff INH Q12HR Milk of Magnesia Liq (Magnesium Hydroxide) 400 Mg/5 Ml Susp 60 Ml PO DAILY PRN Metoprolol Tartrate 50 Mg Tab 50 Mg PO TID Lantus Inj (Insulin Glargine) 1,000 Unit/10 Ml Vial 10 Units SQ BID Klonopin (Clonazepam) 0.5 Mg Tab 0.5 Mg PO BID Enema Disposable (Sodium Phosphates) 19 Gram-7 Gram/118 Ml Rni Dulcolax Supp (Bisacodyl) 10 Mg Supp 10 Mg RECTAL DAILY PRN Bumetanide 1 Mg Tab 1 Mg PO DAILY Sm Womans Laxative (Bisacodyl) 5 Mg Tab 10 Mg PO Review of Systems Respiratory: COMPLAINS OF: Sputum production, Shortness of breath Psychiatric: COMPLAINS OF: Depression, Hallucinations, Suicidal Ideation Mental Status Examination Appearance: Appropriate (yes dressed in hospital attire maintaining basic hygiene) Consciousness: Alert Orientation: x4 Motor Activity: Other Speech: Unremarkable Language: Adequate Fund of Knowledge: Adequate Attention and Concentration: Adequate Memory: Unremarkable (wheelchair-bound) Mood: Sad Affect: Sad Thought Process & Associations: Intact, Logical, Goal directed Thought Content: Appropriate, Racing thoughts (reports racing thoughts) Hallucination Type: Auditory (command type to harm herself) Delusion Type: None Suicidal Ideation: No Suicidal Plan: Yes Suicidal Intention: No Homicidal Ideation: No Homicidal Plan: No Homicidal Intention: No Insight: Fair Judgment: Adequate MDM Medical Decision Making Medical Record Reviewed: Yes Assessment/Plan 42-year-old female with history of bipolar disorder, anxiety, and depression who presents to the ED on a voluntary basis with reports of increase in depression, increase in anxiety, increase in suicidal ideation, auditory command hallucinations that tell her to kill herself, that has been escalating for the past 24 hours. She does not feel safe at [facility] and is requesting hospitalization at this time. Although she contracts for safety here in the ED she is unable to contract for safety if she were to be discharge. At this time inpatient psychiatric hospitalization is recommended for further evaluation, safety and for stabilization of symptoms. Orders Orders Complete Blood Count With Diff (09/09/17 01:24) Comprehensive Metabolic Panel (09/09/17 01:24) Thyroid Stimulating Hormone (09/09/17 01:24) Urinalysis - C+S If Indicated (09/09/17 01:24) Psych Screen (09/09/17 01:24) Drug Screen, Random Urine (09/09/17 01:24) Alcohol (Ethanol) (09/09/17 01:24) Influenzae A/B Antigen (09/09/17 01:24) Chest, Single Ap (09/09/17 01:24) Ed Urine Pregnancytest Poc (09/09/17 01:24) Insulin Human Regular Inj (Novolin R Inj (09/09/17 02:30) Acetaminophen (Tylenol) (09/09/17 02:30) Diet Diabetic (09/09/17 Breakfast) Diet Regular Basic (09/09/17 Lunch) Results Vital Signs Date Time Temp Pulse Resp B/P (MAP) Pulse Ox O2 Delivery O2 Flow Rate FiO2 09/09/17 04:59 97 20 136/80 (98) 99 Nasal Cannula 3.00 09/09/17 04:25 20 09/09/17 01:20 20 09/08/17 23:01 98.4 101 16 160/80 (106) 96 Room Air Laboratory Tests Test 09/09/17 01:40 09/09/17 01:45 White Blood Count 7.2 Red Blood Count 4.07 Hemoglobin 11.9 Hematocrit 36.1 Mean Corpuscular Volume 88.7 Mean Corpuscular Hemoglobin 29.3 Mean Corpuscular Hemoglobin Concent 33.0 Red Cell Distribution Width 14.5 Platelet Count 275 Mean Platelet Volume 6.2 Neutrophils (%) (Auto) 77.9 Lymphocytes (%) (Auto) 14.2 Monocytes (%) (Auto) 6.9 Eosinophils (%) (Auto) 0.6 Basophils (%) (Auto) 0.4 Neutrophils # (Auto) 5.6 Lymphocytes # (Auto) 1.0 Monocytes # (Auto) 0.5 Eosinophils # (Auto) 0.0 Basophils # (Auto) 0.0 CBC Comment DIFF FINAL Differential Comment Blood Urea Nitrogen 15 Creatinine 0.72 Random Glucose 260 Total Protein 7.7 Albumin 3.5 Calcium Level 8.6 Alkaline Phosphatase 112 Aspartate Amino Transf (AST/SGOT) 16 Alanine Aminotransferase (ALT/SGPT) 43 Total Bilirubin 0.1 Sodium Level 137 Potassium Level 4.0 Chloride Level 98 Carbon Dioxide Level 33.0 Anion Gap 6 Estimat Glomerular Filtration Rate 90 Thyroid Stimulating Hormone 3rd Gen 0.641 Ethyl Alcohol Level LESS THAN 3 Urine Color YELLOW Urine Turbidity CLEAR Urine pH 6.0 Urine Specific [place] 1.028 Urine Protein TRACE Urine Glucose (UA) 150 Urine Ketones NEG Urine Occult Blood NEG Urine Nitrite NEG Urine Bilirubin NEG Urine Urobilinogen LESS THAN 2.0 Urine Leukocyte Esterase NEG Urine RBC 2 Urine WBC 1 Urine Squamous Epithelial Cells <1 Urine Hyaline Casts 1 Urine Mucus FEW Microscopic Urinalysis Comment CULT NOT INDICATED Urine Opiates Screen NEG Urine Barbiturates Screen NEG Urine Amphetamines Screen NEG Urine Benzodiazepines Screen POS Urine Cocaine Screen NEG Urine Cannabinoids Screen NEG Date/Time Source Procedure Growth Status 09/09/17 01:40 Nasal Aspirate Influenza Types A,B Antigen (YEHUDA) - Final NEGATIVE FOR FLU A AND B ANTIGEN.... Complete Diagnosis Primary Impression: Medical clearance for psychiatric admission Additional Impressions: Bipolar disorder with current episode depressed bipolar disorder Admitting Information Admitting Physician Requests: Admit Condition: Stable Problem Qualifiers Additional Impressions: Bipolar disorder with current episode depressed Qualified Codes: F31.32 - Bipolar disorder, current episode depressed, moderate Uriarte,Johana Lilly Rios [facility] Sep 09, 2017 13:44
[2017-09-09] MEDS ORDERED: ALUMINUM/MAGNESIUM/SIMETH 30 ML CUP PO PRN (14:00)
[2017-09-09] MEDS ORDERED: MAGNESIUM HYDROXIDE SUSP 30 ML CUP PO PRN (14:00)
[2017-09-09] MEDS ORDERED: PILL SPLITTER OTHER PRN (14:15)
[2017-09-09 14:30] VITALS: BP 134/78; PULSE 88; RESP 22; O2SAT 99
[2017-09-09 16:56] VITALS: BP 143/80; PULSE 91; RESP 16; TEMP 98; O2SAT 99
[2017-09-09] MEDS: METOPROLOL TARTRATE 50 MG TAB PO SCH (17:45)
[2017-09-09 18:09] VITALS: BP 143/80; PULSE 91; RESP 16; TEMP 98; O2SAT 99
[2017-09-09] MEDS: traZODone HCL 100 MG TAB PO SCH (21:38)
[2017-09-09] MEDS: OXcarbazepine 600 MG TAB PO SCH (21:38)
[2017-09-10 05:32] VITALS: BP 127/66; PULSE 88; RESP 17; TEMP 97.2; O2SAT 99
[2017-09-10 07:10] LABS: BLOOD UREA NITROGEN 12 MG/DL (7-18); CHLORIDE 98 MEQ/L (98-107); CREATININE 0.61 MG/DL (0.50-1.00); GLOMERULAR FILTRATION RATE 109 ML/MIN (>89); GLUCOSE,RANDOM 207 MG/DL (74-106); SODIUM (NA) 137 MEQ/L (136-145)
[2017-09-10 07:11] LABS: CHOLESTEROL 213 MG/DL (120-200); TRIGLYCERIDES 230 MG/DL (42-150)
[2017-09-10 07:13] LABS: CHOLESTEROL/ HDL RATIO 5.63 RATIO; HDL CHOLESTEROL 37.8 MG/DL (40.0-60.0); LDL CHOLESTEROL 129 MG/DL (0-99)
[2017-09-10] MEDS: BUMETANIDE 1 MG TAB PO SCH (09:12)
[2017-09-10] MEDS: SERTRALINE HCL 50 MG TAB PO SCH (09:12)
[2017-09-10] MEDS: OXcarbazepine 300 MG TAB PO SCH ×2 (09:12→21:31)
[2017-09-10] MEDS: METOPROLOL TARTRATE 50 MG TAB PO SCH ×3 (09:12→17:33)
[2017-09-10] MEDS: risperiDONE 1 MG TAB PO SCH ×2 (09:24→21:32)
--- NOTE | 2017-09-10 09:47 | EKG ---
Date Performed: 09/10/2017 Time Performed: 07:18:31 PTAGE: 42 years EKG: Sinus rhythm MODERATE INTRAVENTRICULAR CONDUCTION DELAY BORDERLINE ECG Since the prior tracing, there has been no significant change PREVIOUS TRACING : 06/22/2017 00.38 DOCTOR: Lacho Batista Interpretating Date/Time 09/10/2017 09:45:35
--- NOTE | 2017-09-10 09:50 | PD.CONS ---
HPI Service [facility] Hospitalists Consult Requested By Dr. Montelongo Reason for Consult Medical management Primary Care Physician Unknown Diagnoses: (1) Hypertension (2) COPD (chronic obstructive pulmonary disease) (3) Schizoaffective disorder, depressive type (4) Adjustment disorder with depressed mood History of Present Illness 42-year-old female with a medical history significant for bipolar disorder, COPD , CHF presented to the hospital from [facility] because of auditory hallucinations. Patient reports voices has been telling her to kill herself by cutting her wrist. Records extensively reviewed. She appeared to have history of attention seeking behavior. Today she reports left-sided chest pain that has been ongoing for weeks on and off. She denies any exacerbating factors. No associated shortness of breath. Per review of the records, she always complained of chest pain and her cardiac workup has always been unremarkable. Review of Systems ROS Limitations: Clinical Condition, Poor Historian Cardiovascular: COMPLAINS OF: Chest pain Review of system is positive for everything. Not reliable given her current mental state. Past Family Social History Allergies: Coded Allergies: meperidine (Unverified Allergy, Severe, 09/09/17) Sarai House Dust (Unverified Allergy, Intermediate, Sneezing, 09/09/17) NSAIDS (Non-Steroidal Anti-Inflamma (Unverified Adverse Reaction, Intermediate, Hives, 09/09/17) aspirin (Unverified Adverse Reaction, Intermediate, Hives, 09/09/17) ciprofloxacin (Unverified Adverse Reaction, Intermediate, Hives, 09/09/17) Past Medical History CHF, COPD on home oxygen, HTN, DM Schizophrenia Past Surgical History Tonsillectomy Reported Medications Reported Meds & Active Scripts Active Dok (Docusate Sodium) 100 Mg Cap 100 Mg PO BID 30 Days Quetiapine (Quetiapine Fumarate) 50 Mg Tab 50 Mg PO BID@1600,2100 Zoloft (Sertraline HCl) 50 Mg Tab 75 Mg PO DAILY 30 Days Levemir Inj (Insulin Detemir) 1,000 unit/ 10 ML Vial 30 Units SQ BID Do not mix with any other Insulin. Reported Glucose (Dextrose) 4 Gm Chew 15 Gm CHEW DIRECTED Lantus Inj (Insulin Glargine) 1,000 Unit/10 Ml Vial 50 Units SQ HS Lantus Inj (Insulin Glargine) 1,000 Unit/10 Ml Vial 25 Units SQ DAILY Novolog Inj (Insulin Aspart) 1,000 Unit/10 Ml Vial 8 Units SQ TIDAC Benztropine (Benztropine Mesylate) 0.5 Mg Tab 1 Mg PO BID Miralax Powder (Polyethylene Glycol 3350 Powder) 17 Gm Powd 17 Gm PO DAILY Mix and dissolve one measuring cap-ful (17 grams) in water or juice. Trazodone (Trazodone HCl) 100 Mg Tablet 100 Mg PO HS Risperidone 1 Mg Tab 1 Mg PO DAILY Risperdal (Risperidone) 4 Mg Tab 4 Mg PO HS Oxcarbazepine 600 Mg Tab 600 Mg PO HS Oxcarbazepine 300 Mg Tab 300 Mg PO DAILY Symbicort Inh (Budesonide/Formoterol Fumarate) 80-4.5 Mcg/Act Aero 2 Puff INH Q12HR Milk of Magnesia Liq (Magnesium Hydroxide) 400 Mg/5 Ml Susp 60 Ml PO DAILY PRN Metoprolol Tartrate 50 Mg Tab 50 Mg PO TID Lantus Inj (Insulin Glargine) 1,000 Unit/10 Ml Vial 10 Units SQ BID Klonopin (Clonazepam) 0.5 Mg Tab 0.5 Mg PO BID Enema Disposable (Sodium Phosphates) 19 Gram-7 Gram/118 Ml Rin Dulcolax Supp (Bisacodyl) 10 Mg Supp 10 Mg RECTAL DAILY PRN Bumetanide 1 Mg Tab 1 Mg PO DAILY Sm Womans Laxative (Bisacodyl) 5 Mg Tab 10 Mg PO Family History Mother reportedly from breast cancer. Social History Patient denies tobacco, alcohol, or illicit drug use. Physical Exam Vital Signs Vital Signs Date Time Temp Pulse Resp B/P (MAP) Pulse Ox O2 Delivery O2 Flow Rate FiO2 09/10/17 05:32 97.2 88 17 127/66 (86) 99 09/09/17 18:09 98.0 91 16 143/80 (101) 99 09/09/17 16:56 98.0 91 16 143/80 (101) 99 09/09/17 15:15 09/09/17 14:30 88 22 134/78 (96) 99 Physical Exam GENERAL: Obese female, in no apparent distress. SKIN: No rashes, ecchymoses or lesions. Cool and dry. HEAD: Atraumatic. Normocephalic. No temporal or scalp tenderness. EYES: Pupils equal round and reactive. Extraocular motions intact. No scleral icterus. No injection or drainage. ENT: Nose without drainage. Throat without erythema, tonsillar hypertrophy or exudate. Uvula midline. Airway patent. NECK: Trachea midline. No JVD or lymphadenopathy. Supple, nontender, no meningeal signs. CARDIOVASCULAR: Regular rate and rhythm without murmurs, gallops, or rubs. RESPIRATORY: Clear to auscultation. Breath sounds equal bilaterally. No wheezes , rales, or rhonchi. GASTROINTESTINAL: Abdomen soft, non-tender, nondistended. No hepato-splenomegaly , or palpable masses. No guarding. MUSCULOSKELETAL: Extremities without clubbing, cyanosis, or edema. No joint tenderness, effusion, or edema noted. No calf tenderness. Negative Homans sign bilaterally. NEUROLOGICAL: Awake and alert. Cranial nerves II through XII intact. Motor and sensory grossly within normal limits. Five out of 5 muscle strength in all muscle groups. Normal speech. Laboratory Laboratory Tests Test 09/10/17 06:20 Blood Urea Nitrogen 12 Creatinine 0.61 Random Glucose 207 Calcium Level 9.0 Sodium Level 137 Potassium Level 4.3 Chloride Level 98 Carbon Dioxide Level 36.0 Anion Gap 3 Estimat Glomerular Filtration Rate 109 Triglycerides Level 230 Cholesterol Level 213 LDL Cholesterol 129 HDL Cholesterol 37.8 Cholesterol/HDL Ratio 5.63 Date/Time Source Procedure Growth Status 09/09/17 01:40 Nasal Aspirate Influenza Types A,B Antigen (YEHUDA) - Final NEGATIVE FOR FLU A AND B ANTIGEN.... Complete Result Diagram: 09/09/17 0140 09/10/17 0620 Imaging Last Impressions Chest X-Ray 09/09/17 0124 Signed Impressions: Service Date/Time: Saturday, September 09, 2017 01:34 - CONCLUSION: 1. Cardiomegaly. Minimal basal atelectasis. No plain film findings of congestive heart failure. Colin Escalera MD Assessment and Plan Problem List: (1) Schizoaffective disorder, depressive type ICD Code: F25.1 - Schizoaffective disorder, depressive type (2) Adjustment disorder with depressed mood ICD Code: F43.21 - Adjustment disorder with depressed mood (3) Hypertension ICD Code: I10 - Essential (primary) hypertension (4) Chest pain ICD Code: R07.9 - Chest pain, unspecified (5) COPD (chronic obstructive pulmonary disease) ICD Code: J44.9 - Chronic obstructive pulmonary disease, unspecified Assessment and Plan 42-year-old female admitted to the med/psych unit. Hospitalist service consulted for medical management. Psychotic disorder: - Management per psychiatry Chest pain: Probably psych related. Per review of record, the patient always complained of chest pain but always have negative cardiac workup. - Will obtain one set of troponin. EKG personally reviewed. No new acute changes. Can use Tylenol as needed for pain. History of CHF: No exacerbation. Last 2-D echo shows low normal LVEF. Continue strict I's and O's. - Continue Bumex COPD: stable, on home oxygen. Duoneb prn, continue Symbicort. HTN: stable. on home meds. Continue Norvasc. Continue lisinopril, metoprolol. DM: Restart Levemir. Sliding scale insulin. GI prophylaxis: Stool softener PRN constipation. DVT PPx: Lovenox Candace Bello MD Sep 10, 2017 09:50
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
[2017-09-10] MEDS ORDERED: DEXTROSE 50% IN WATER 50 ML VIAL(D50) IV PUSH PRN (13:30)
[2017-09-10] MEDS ORDERED: GLUCAGON 1 MG/ML VIAL OTHER PRN (13:30)
[2017-09-10 16:19] LABS: HEMOGLOBIN A1C 8.8 % (4.3-6.0)
[2017-09-10] MEDS: INSULIN ASPART SUPPLEMENTAL SCALE SQ SCH ×2 (16:19→21:34)
[2017-09-10 18:05] VITALS: BP 112/53; PULSE 85; RESP 16; TEMP 98.4; O2SAT 96
[2017-09-10] MEDS: OXcarbazepine 600 MG TAB PO SCH (21:00)
[2017-09-10] MEDS: traZODone HCL 100 MG TAB PO SCH (21:31)
[2017-09-11 06:17] VITALS: BP 110/59; PULSE 78; RESP 18; TEMP 97.6; O2SAT 99
[2017-09-11] MEDS: INSULIN ASPART SUPPLEMENTAL SCALE SQ SCH ×4 (08:01→21:00)
[2017-09-11] MEDS: INSULIN DETEMIR 100 UNITS/ML VIAL SQ SCH (08:01)
[2017-09-11] MEDS: SERTRALINE HCL 50 MG TAB PO SCH (08:02)
[2017-09-11] MEDS: risperiDONE 1 MG TAB PO SCH (08:02)
[2017-09-11] MEDS: OXcarbazepine 300 MG TAB PO SCH (08:02)
[2017-09-11] MEDS: BUMETANIDE 1 MG TAB PO SCH (08:02)
[2017-09-11] MEDS: METOPROLOL TARTRATE 50 MG TAB PO SCH ×3 (08:02→17:27)
--- NOTE | 2017-09-11 09:11 | HHI.PR ---
Subjective Remarks in no acute distress. has on and off chest discomfort. no new complaints. Objective Vitals Vital Signs Date Time Temp Pulse Resp B/P (MAP) Pulse Ox O2 Delivery O2 Flow Rate FiO2 09/11/17 06:17 97.6 78 18 110/59 (76) 99 09/10/17 18:05 98.4 85 16 112/53 (72) 96 I/O 09/10/17 09/10/17 09/10/17 09/11/17 09/11/17 09/11/17 07:00 15:00 23:00 07:00 15:00 23:00 Intake Total 600 ml 840 ml 0 ml 480 ml Balance 600 ml 840 ml 0 ml 480 ml Intake Oral 600 ml 840 ml 0 ml 480 ml # Voids 1 1 Result Diagram: 09/09/17 0140 09/10/17 0620 Imaging Last Impressions Chest X-Ray 09/09/17 0124 Signed Impressions: Service Date/Time: Saturday, September 09, 2017 01:34 - CONCLUSION: 1. Cardiomegaly. Minimal basal atelectasis. No plain film findings of congestive heart failure. Colin Escalera MD Objective Remarks GENERAL: This is a well-nourished, well-developed patient, in no apparent distress. CARDIOVASCULAR: Regular rate and regular rhythm without murmurs, gallops, or rubs. RESPIRATORY: Clear to auscultation. Breath sounds equal bilaterally. No wheezes , rales, or rhonchi. GASTROINTESTINAL: Abdomen soft, non-tender, nondistended. Normal, active bowel sounds MUSCULOSKELETAL: Extremities without clubbing, cyanosis, or edema. NEURO: Alert & Oriented x4 to person, place, time, situation. Moves all ext x4 Medications and IVs Inpatient Medications Acetaminophen (Tylenol) 650 mg Q4H PRN PO Pain 1-5 or Temp >101F; Start at 14:00 Al Hydrox/Mg Hydrox/Simethicone (Mag-Al Plus Susp Liq) 30 ml Q6H PRN PO DYSPEPSIA; Start 09/09/17 at 14:00 Bumetanide (Bumetanide) 1 mg DAILY PO Last administered on 09/11/17at 08:02; Start 09/10/17 at 09:00 Dextrose (D50w (Vial) Inj) 50 ml UNSCH PRN IV PUSH HYPOGLYCEMIA-SEE COMMENTS; Start 09/10/17 at 13:30 Glucagon (Glucagon Inj) 1 mg UNSCH PRN OTHER HYPOGLYCEMIA-SEE COMMENTS; Start 09/10/17 at 13:30 Insulin Aspart (NovoLOG SUPPLEMENTAL SCALE) 1 ACHS SLIDING SCALE SQ Last administered on 09/11/17at 08:01; Start 09/10/17 at 17:00 Insulin Detemir (Levemir Inj) 25 units DAILY SQ Last administered on 09/11/17at 08:01; Start 09/11/17 at 09:00 Insulin Human Regular (NovoLIN R INJ) 3 units STAT ONCE SQ Last administered on 09/09/17at 02:30; Start 09/09/17 at 02:30; Stop 09/09/17 at 02:31; Status DC Magnesium Hydroxide (Milk Of Magnesia Liq) 30 ml DAILY PRN PO CONSTIPATION; Start 09/09/17 at 14:00 Metoprolol Tartrate (Lopressor) 50 mg TID PO Last administered on 09/11/17at 08: 02; Start 09/09/17 at 18:00 Miscellaneous (Pill Splitter) 1 ea UNSCH PRN OTHER SEE LABEL COMMENTS; Start at 14:15 Oxcarbazepine (Trileptal) 600 mg HS PO Last administered on 09/10/17at 21:00; Start 09/09/17 at 21:00 Risperidone (risperDAL) 2 mg Q12HR PO Last administered on 09/11/17at 08:02; Start 09/10/17 at 09:00 Sertraline HCl (Zoloft) 75 mg DAILY PO Last administered on 09/11/17at 08:02; Start 09/10/17 at 09:00 Trazodone HCl (Desyrel) 100 mg HS PO Last administered on 09/10/17at 21:31; Start 09/09/17 at 21:00 A/P Problem List: (1) Schizoaffective disorder, depressive type ICD Code: F25.1 - Schizoaffective disorder, depressive type (2) Adjustment disorder with depressed mood ICD Code: F43.21 - Adjustment disorder with depressed mood (3) Hypertension ICD Code: I10 - Essential (primary) hypertension (4) Chest pain ICD Code: R07.9 - Chest pain, unspecified (5) COPD (chronic obstructive pulmonary disease) ICD Code: J44.9 - Chronic obstructive pulmonary disease, unspecified Assessment and Plan Psychotic disorder: - Management per psychiatry Chest pain: Probably psych related. Per review of record, the patient always complained of chest pain but always have negative cardiac workup. troponin negative and EKG with no acute ST-T changes. History of CHF: No exacerbation. Last 2-D echo shows low normal LVEF. Continue strict I's and O's. - Continue Bumex COPD: stable, on home oxygen. Duoneb prn, continue Symbicort. HTN: stable. continue metoprolol. DM: Restarted Levemir. Sliding scale insulin. dyslipidemia-start on statin- f/u as outpatient. GI prophylaxis: Stool softener PRN constipation. DVT PPx: Ramez Browne MD Sep 11, 2017 09:11
--- NOTE | 2017-09-11 11:34 | HHI.PYPN ---
Subjective Remarks Patient seen for follow-up, chart reviewed. Discussion she staff reported the patient has no physical complaints at this time, slept well, denying any suicide ideations to nursing staff. Patient was found sitting in hospital wheelchair watched television in room without recall cooperative. Patient states that she is feeling "so-so" continues report feeling very depressed, with suicidal ideations, command auditory hallucinations to kill herself. Patient reports that the voices are very intense. She reports auditory hallucinations during interview. Patient denies any difficulty with sleep, drinking or bowel movement. Review of Systems Except as stated in HPI: all other systems reviewed are Neg Mental Status Examination Appearance: Appropriate Consciousness: Alert Orientation: x4 Motor Activity: Other (wheelchair) Speech: Unremarkable Language: Adequate Fund of Knowledge: Adequate Attention and Concentration: Adequate Memory: Unremarkable (wheelchair-bound) Mood: Other ("depressed") Affect: Blunt Thought Process & Associations: Intact, Logical, Linear Thought Content: Hallucinations Hallucination Type: Auditory (command type to harm herself) Delusion Type: None Suicidal Ideation: Yes Suicidal Plan: No Suicidal Intention: No Homicidal Ideation: No Homicidal Plan: No Homicidal Intention: No Insight: Fair Judgment: Adequate Results Labs Date/Time Source Procedure Growth Status 09/09/17 01:40 Nasal Aspirate Influenza Types A,B Antigen (YEHUDA) - Final NEGATIVE FOR FLU A AND B ANTIGEN.... Complete Vitals/IOs Vital Signs Date Time Temp Pulse Resp B/P (MAP) Pulse Ox O2 Delivery O2 Flow Rate FiO2 09/11/17 06:17 97.6 78 18 110/59 (76) 99 09/09/17 09:00 Nasal Cannula 3.00 Intake and Output 09/11/17 09/11/17 09/12/17 08:00 16:00 00:00 Intake Total 0 ml 480 ml Balance 0 ml 480 ml Assessment & Plan Problem List: (1) Schizoaffective disorder, depressive type ICD Codes: F25.1 - Schizoaffective disorder, depressive type Assessment & Plan Patient at this time continues to report feeling depressed, endorsing suicidal ideation as well as command auditory hallucinations to kill herself. We'll increase risperidone to 2 mg a.m. and 3 mg at bedtime. Continued rest of medications. Continue to monitor mood and behavior. Continue recommendations as per primary medical team. Discharge planning in progress Justification for Cont. Inpt. At risk for further decompensation if at lower level of care Discharge Planning Patient reports her back to her SNF when psychiatrically stable Jah Montelongo MD Sep 11, 2017 11:34
[2017-09-11 18:08] VITALS: BP 108/55; PULSE 89; RESP 18; TEMP 98.2; O2SAT 97
[2017-09-11] MEDS: risperiDONE 3 MG TAB PO SCH (21:00)
[2017-09-11] MEDS: ATORVASTATIN 10 MG TAB PO SCH (21:00)
[2017-09-11] MEDS: traZODone HCL 100 MG TAB PO SCH (21:00)
[2017-09-11] MEDS: OXcarbazepine 600 MG TAB PO SCH (21:00)
[2017-09-12 05:20] VITALS: BP 140/72; PULSE 92; RESP 16; TEMP 97.9; O2SAT 99
[2017-09-12] MEDS: INSULIN ASPART SUPPLEMENTAL SCALE SQ SCH ×4 (08:00→20:17)
[2017-09-12] MEDS: SERTRALINE HCL 50 MG TAB PO SCH (08:33)
[2017-09-12] MEDS: BUMETANIDE 1 MG TAB PO SCH (08:33)
[2017-09-12] MEDS: INSULIN DETEMIR 100 UNITS/ML VIAL SQ SCH (08:34)
[2017-09-12] MEDS: risperiDONE 1 MG TAB PO SCH (08:34)
[2017-09-12] MEDS: METOPROLOL TARTRATE 50 MG TAB PO SCH ×3 (08:34→16:37)
[2017-09-12] MEDS: OXcarbazepine 300 MG TAB PO SCH (08:35)
--- NOTE | 2017-09-12 08:39 | HHI.PR ---
Subjective Remarks in no acute distress. has on and off chest pain. Objective Vitals Vital Signs Date Time Temp Pulse Resp B/P (MAP) Pulse Ox O2 Delivery O2 Flow Rate FiO2 09/12/17 07:39 09/12/17 05:20 97.9 92 16 140/72 (94) 99 09/11/17 18:08 98.2 89 18 108/55 (72) 97 I/O 09/11/17 09/11/17 09/11/17 09/12/17 09/12/17 09/12/17 07:00 15:00 23:00 07:00 15:00 23:00 Intake Total 0 ml 1080 ml 840 ml 120 ml 0 ml Balance 0 ml 1080 ml 840 ml 120 ml 0 ml Intake Oral 0 ml 1080 ml 840 ml 120 ml IV Total 0 ml # Voids 1 4 1 Result Diagram: 09/09/17 0140 09/10/17 0620 Imaging Last Impressions Chest X-Ray 09/09/17 0124 Signed Impressions: Service Date/Time: Saturday, September 09, 2017 01:34 - CONCLUSION: 1. Cardiomegaly. Minimal basal atelectasis. No plain film findings of congestive heart failure. Colin Escalera MD Objective Remarks GENERAL: This is a well-nourished, well-developed patient, in no apparent distress. CARDIOVASCULAR: Regular rate and regular rhythm without murmurs, gallops, or rubs. RESPIRATORY: Clear to auscultation. Breath sounds equal bilaterally. No wheezes , rales, or rhonchi. GASTROINTESTINAL: Abdomen soft, non-tender, nondistended. Normal, active bowel sounds MUSCULOSKELETAL: Extremities without clubbing, cyanosis, or edema. NEURO: Alert & Oriented x4 to person, place, time, situation. Moves all ext x4 Medications and IVs Inpatient Medications Acetaminophen (Tylenol) 650 mg Q4H PRN PO Pain 1-5 or Temp >101F; Start at 14:00 Al Hydrox/Mg Hydrox/Simethicone (Mag-Al Plus Susp Liq) 30 ml Q6H PRN PO DYSPEPSIA; Start 09/09/17 at 14:00 Atorvastatin Calcium (Lipitor) 10 mg HS PO Last administered on 09/11/17at 21:00 ; Start 09/11/17 at 21:00 Bumetanide (Bumetanide) 1 mg DAILY PO Last administered on 09/12/17at 08:33; Start 09/10/17 at 09:00 Dextrose (D50w (Vial) Inj) 50 ml UNSCH PRN IV PUSH HYPOGLYCEMIA-SEE COMMENTS; Start 09/10/17 at 13:30 Glucagon (Glucagon Inj) 1 mg UNSCH PRN OTHER HYPOGLYCEMIA-SEE COMMENTS; Start 09/10/17 at 13:30 Insulin Aspart (NovoLOG SUPPLEMENTAL SCALE) 1 ACHS SLIDING SCALE SQ Last administered on 09/12/17at 08:00; Start 09/10/17 at 17:00 Insulin Detemir (Levemir Inj) 25 units DAILY SQ Last administered on 09/12/17at 08:34; Start 09/11/17 at 09:00 Insulin Human Regular (NovoLIN R INJ) 3 units STAT ONCE SQ Last administered on 09/09/17at 02:30; Start 09/09/17 at 02:30; Stop 09/09/17 at 02:31; Status DC Magnesium Hydroxide (Milk Of Motility Count Liq) 30 ml DAILY PRN PO CONSTIPATION; Start 09/09/17 at 14:00 Metoprolol Tartrate (Lopressor) 50 mg TID PO Last administered on 09/12/17at 08: 34; Start 09/09/17 at 18:00 Miscellaneous (Pill Splitter) 1 ea UNSCH PRN OTHER SEE LABEL COMMENTS; Start at 14:15 Oxcarbazepine (Trileptal) 600 mg HS PO Last administered on 09/11/17at 21:00; Start 09/09/17 at 21:00 Risperidone (risperDAL) 3 mg HS PO Last administered on 09/11/17at 21:00; Start 09/11/17 at 21:00 Sertraline HCl (Zoloft) 75 mg DAILY PO Last administered on 09/12/17at 08:33; Start 09/10/17 at 09:00 Trazodone HCl (Desyrel) 100 mg HS PO Last administered on 09/11/17at 21:00; Start 09/09/17 at 21:00 A/P Problem List: (1) Schizoaffective disorder, depressive type ICD Code: F25.1 - Schizoaffective disorder, depressive type (2) Adjustment disorder with depressed mood ICD Code: F43.21 - Adjustment disorder with depressed mood (3) Hypertension ICD Code: I10 - Essential (primary) hypertension (4) Chest pain ICD Code: R07.9 - Chest pain, unspecified (5) COPD (chronic obstructive pulmonary disease) ICD Code: J44.9 - Chronic obstructive pulmonary disease, unspecified Assessment and Plan Psychotic disorder: - Management per psychiatry Chest pain: Probably psych related. Per review of record, the patient always complained of chest pain but always have negative cardiac workup. troponin negative and EKG with no acute ST-T changes. History of CHF: No exacerbation. Last 2-D echo shows low normal LVEF. Continue strict I's and O's. - Continue Bumex COPD: stable, on home oxygen. Duoneb prn, continue Symbicort. HTN: stable. continue metoprolol. DM: Restarted Levemir. Sliding scale insulin. dyslipidemia-start on statin- f/u as outpatient. GI prophylaxis: Stool softener PRN constipation. DVT PPx: Lovenox Ramez Toscano MD Sep 12, 2017 08:39
[2017-09-12] MEDS: ACETAMINOPHEN 325 MG TAB PO PRN (09:20)
--- NOTE | 2017-09-12 11:01 | HHI.PYPN ---
Subjective Remarks Patient seen for follow, chart reviewed. Discussion she staff reported the patient has a cooperative continues report feeling depressed along with auditory hallucinations and suicidal ideations. She was found in wheelchair watched television noted to be calm and cooperative. Patient states that she continues to feel "so-so", reports having slept well with no adverse drug reactions and treatment. Patient states that her mood has been "not very good" continues report feeling depressed along with suicide ideations which she last experienced last night. Patient continues to endorse command auditory hallucinations to hurt herself. Patient states that she will continue to participate in groups and activities. Review of Systems Except as stated in HPI: all other systems reviewed are Neg Mental Status Examination Appearance: Appropriate Consciousness: Alert Orientation: x4 Motor Activity: Other (wheelchair) Speech: Unremarkable Language: Adequate Fund of Knowledge: Adequate Attention and Concentration: Adequate Memory: Unremarkable (wheelchair-bound) Mood: Other ("depressed") Affect: Blunt Thought Process & Associations: Intact, Logical, Linear Thought Content: Hallucinations Hallucination Type: Auditory (command type to harm herself) Delusion Type: None Suicidal Ideation: Yes Suicidal Plan: No Suicidal Intention: No Homicidal Ideation: No Homicidal Plan: No Homicidal Intention: No Insight: Fair Judgment: Adequate Results Labs Date/Time Source Procedure Growth Status 09/09/17 01:40 Nasal Aspirate Influenza Types A,B Antigen (YEHUDA) - Final NEGATIVE FOR FLU A AND B ANTIGEN.... Complete Vitals/IOs Vital Signs Date Time Temp Pulse Resp B/P (MAP) Pulse Ox O2 Delivery O2 Flow Rate FiO2 09/12/17 07:39 09/12/17 05:20 97.9 92 16 99 09/09/17 09:00 Nasal Cannula 3.00 Intake and Output 09/12/17 09/12/17 09/13/17 08:00 16:00 00:00 Intake Total 120 ml Balance 120 ml Assessment & Plan Problem List: (1) Schizoaffective disorder, depressive type ICD Codes: F25.1 - Schizoaffective disorder, depressive type Assessment & Plan Patient at this time continues report feeling depressed along with suicide ideations and command auditory hallucinations to kill herself. Patient regimen was recently modified which risperidone was increased. We'll continue current treatment for now. Continue to monitor mood and behavior. If medically clear patient may be moved to 2600 unit as patient was seen this unit during her last hospitalization. Discharge planning in progress Justification for Cont. Inpt. At risk for further decompensation if at lower level of care Discharge Planning Patient return back to her SNF when psychiatric stable Jah Montelongo MD Sep 12, 2017 11:01
--- NOTE | 2017-09-12 14:46 | PD.TTN ---
Patient Problems 1. Discharge planning 2. Medication compliance 3. Knowledge deficit 4. Lack of coping skills Progress Toward Goals Provider Present: Dr. Marvin Montelongo Provider Input: 09/12/17 patient is still in need for a med adjustment and then can return to her placement she is suggested to transfer to the 2600 unit as she appears to comfortable on the 4th floor , voices suicidal ideations when asked about her improvement and discharge planning Psychiatric Counselors Present: Jess Negrete LCSW Psych Therapist Input: 09/12/17 remians flat and limited in talking , reports she still has the voices telling her to hurt herself, not specific on a plan, when safety planning is discussed she states often " I don't know" when asked to come to nurse and disclose of her Group Spec/RT/OT/ARIAS Present: Laureano Rodríguez, OT Group Spec/RT/OT/ARIAS Input: patient attends all groups and enjoys social activities Jess Negrete LCSW Sep 12, 2017 14:45
[2017-09-12] MEDS: ATORVASTATIN 10 MG TAB PO SCH (20:16)
[2017-09-12] MEDS: risperiDONE 3 MG TAB PO SCH (20:16)
[2017-09-12] MEDS: OXcarbazepine 600 MG TAB PO SCH (20:16)
[2017-09-12] MEDS: traZODone HCL 100 MG TAB PO SCH (20:16)
[2017-09-13 06:08] VITALS: BP 139/60; PULSE 100; RESP 20; TEMP 97.5; O2SAT 97
[2017-09-13] MEDS: INSULIN ASPART SUPPLEMENTAL SCALE SQ SCH ×4 (07:39→21:00)
[2017-09-13] MEDS: INSULIN DETEMIR 100 UNITS/ML VIAL SQ SCH (08:34)
[2017-09-13] MEDS: risperiDONE 1 MG TAB PO SCH (08:44)
[2017-09-13] MEDS: BUMETANIDE 1 MG TAB PO SCH (08:44)
[2017-09-13] MEDS: METOPROLOL TARTRATE 50 MG TAB PO SCH ×3 (08:44→17:38)
[2017-09-13] MEDS: OXcarbazepine 300 MG TAB PO SCH (08:44)
[2017-09-13] MEDS: SERTRALINE HCL 50 MG TAB PO SCH (08:46)
[2017-09-13] MEDS: ACETAMINOPHEN 325 MG TAB PO PRN ×2 (08:46→17:38)
--- NOTE | 2017-09-13 12:28 | HHI.PR ---
Subjective Remarks Patient seen and examined this morning. Afebrile vital signs stable. Requiring 3 L of oxygen which is her baseline. She reports some mild chest pain that is managed with Tylenol. Chest pain workup was performed and all negative. Overall patient has no complaints or issues to report to me at this time. Objective Vitals Vital Signs Date Time Temp Pulse Resp B/P (MAP) Pulse Ox O2 Delivery O2 Flow Rate FiO2 09/13/17 09:50 14 09/13/17 06:08 97.5 100 20 139/60 (86) 97 I/O 09/12/17 09/12/17 09/12/17 09/13/17 09/13/17 09/13/17 07:00 15:00 23:00 07:00 15:00 23:00 Intake Total 120 ml 480 ml 240 ml Balance 120 ml 480 ml 240 ml Intake Oral 120 ml 480 ml 240 ml IV Total 0 ml # Voids 1 Result Diagram: 09/09/17 0140 09/10/17 0620 Imaging Last Impressions Chest X-Ray 09/09/17 0124 Signed Impressions: Service Date/Time: Saturday, September 09, 2017 01:34 - CONCLUSION: 1. Cardiomegaly. Minimal basal atelectasis. No plain film findings of congestive heart failure. Colin Escalera MD Objective Remarks GENERAL: This is a well-nourished, well-developed patient, in no apparent distress. Wheelchair bound CARDIOVASCULAR: Regular rate and regular rhythm without murmurs, gallops, or rubs. RESPIRATORY: Clear to auscultation. Breath sounds equal bilaterally. No wheezes , rales, or rhonchi. GASTROINTESTINAL: Abdomen soft, non-tender, nondistended. Normal, active bowel sounds MUSCULOSKELETAL: Extremities without clubbing, cyanosis, or edema. NEURO: Alert & Oriented x4 to person, place, time, situation. Moves all ext x4 Medications and IVs Current Medications Medications (Trade) Dose Ordered Sig/Eliz Route Start Time Stop Time Status Last Admin (Tylenol) 650 mg Q4H PRN PO 09/09/17 14:00 09/13/17 08:46 (Milk Of Magnesia Liq) 30 ml DAILY PRN PO 09/09/17 14:00 (Mag-Al Plus Susp Liq) 30 ml Q6H PRN PO 09/09/17 14:00 (Bumetanide) 1 mg DAILY PO 09/10/17 09:00 09/13/17 08:44 (Lopressor) 50 mg TID PO 09/09/17 18:00 09/13/17 08:44 (Trileptal) 300 mg DAILY PO 09/10/17 09:00 09/13/17 08:44 (Trileptal) 600 mg HS PO 09/09/17 21:00 09/12/17 20:16 (Zoloft) 75 mg DAILY PO 09/10/17 09:00 09/13/17 08:46 (Desyrel) 100 mg HS PO 09/09/17 21:00 09/12/17 20:16 (Pill Splitter) 1 ea UNSCH PRN OTHER 09/09/17 14:15 (Levemir Inj) 25 units DAILY SQ 09/11/17 09:00 09/13/17 08:34 (D50w (Vial) Inj) 50 ml UNSCH PRN IV PUSH 09/10/17 13:30 (Glucagon Inj) 1 mg UNSCH PRN OTHER 09/10/17 13:30 (NovoLOG SUPPLEMENTAL SCALE) 1 ACHS SLIDING SCALE SQ 09/10/17 17:00 09/13/17 11:19 (Lipitor) 10 mg HS PO 09/11/17 21:00 09/12/17 20:16 (risperDAL) 2 mg DAILY PO 09/12/17 09:00 09/13/17 08:44 (risperDAL) 3 mg HS PO 09/11/17 21:00 09/12/17 20:16 A/P Problem List: (1) Schizoaffective disorder, depressive type ICD Code: F25.1 - Schizoaffective disorder, depressive type (2) Adjustment disorder with depressed mood ICD Code: F43.21 - Adjustment disorder with depressed mood (3) Hypertension ICD Code: I10 - Essential (primary) hypertension (4) Chest pain ICD Code: R07.9 - Chest pain, unspecified (5) COPD (chronic obstructive pulmonary disease) ICD Code: J44.9 - Chronic obstructive pulmonary disease, unspecified Assessment and Plan Psychotic disorder: - Management per psychiatry Chest pain: Probably psych related. Per review of record, the patient always complained of chest pain but always have negative cardiac workup. troponin negative and EKG with no acute ST-T changes. History of CHF: No exacerbation. Last 2-D echo shows low normal LVEF. Continue strict I's and O's. - Continue Bumex COPD: stable, on home oxygen. Duoneb prn, continue Symbicort. HTN: stable. continue metoprolol. DM: Restarted Levemir. Sliding scale insulin. dyslipidemia-start on statin- f/u as outpatient. GI prophylaxis: Stool softener PRN constipation. DVT PPx: Lovenox Discharge Planning Pending psychiatry Sp Molina MD, R3 Sep 13, 2017 12:28
--- NOTE | 2017-09-13 15:18 | HHI.PYPN ---
Subjective Remarks Patient was seen and case discussed with nursing. Patient continues to complain of auditory hallucinations telling her that she is not worthy and to hurt herself. She has fleeting suicidal thoughts with a plan to cut but denies any intent. Behaving well on the unit. Mental Status Examination Appearance: Appropriate Consciousness: Alert Orientation: x4 Motor Activity: Other (wheelchair) Speech: Unremarkable Language: Adequate Fund of Knowledge: Adequate Attention and Concentration: Adequate Memory: Unremarkable (wheelchair-bound) Mood: Other ("depressed") Affect: Blunt Thought Process & Associations: Intact, Logical, Linear Thought Content: Hallucinations (to hurt herself) Hallucination Type: Auditory (command type to harm herself) Delusion Type: None Suicidal Ideation: Yes Suicidal Plan: Yes (to cut) Suicidal Intention: No Homicidal Ideation: No Homicidal Plan: No Homicidal Intention: No Insight: Fair Judgment: Adequate Results Labs Date/Time Source Procedure Growth Status 09/09/17 01:40 Nasal Aspirate Influenza Types A,B Antigen (YEHUDA) - Final NEGATIVE FOR FLU A AND B ANTIGEN.... Complete Vitals/IOs Vital Signs Date Time Temp Pulse Resp B/P (MAP) Pulse Ox O2 Delivery O2 Flow Rate FiO2 09/13/17 09:50 14 09/13/17 06:08 97.5 100 139/60 (86) 97 09/09/17 09:00 Nasal Cannula 3.00 Intake and Output 09/13/17 09/13/17 09/14/17 08:00 16:00 00:00 Intake Total 240 ml Balance 240 ml Assessment & Plan Problem List: (1) Schizoaffective disorder, depressive type ICD Codes: F25.1 - Schizoaffective disorder, depressive type Assessment & Plan Continue current treatment plan Justification for Cont. Inpt. Patient will decompensate in a less restrictive setting Jeremiah Taylor DO Sep 13, 2017 15:18
[2017-09-13 18:07] VITALS: BP 136/70; PULSE 83; RESP 18; TEMP 98.4; O2SAT 98
[2017-09-13] MEDS: ATORVASTATIN 10 MG TAB PO SCH (21:18)
[2017-09-13] MEDS: risperiDONE 3 MG TAB PO SCH (21:18)
[2017-09-13] MEDS: traZODone HCL 100 MG TAB PO SCH (21:18)
[2017-09-13] MEDS: OXcarbazepine 600 MG TAB PO SCH (21:18)
[2017-09-14 06:00] VITALS: BP 102/57; PULSE 87; RESP 19; TEMP 97.8; O2SAT 96
[2017-09-14] MEDS: INSULIN ASPART SUPPLEMENTAL SCALE SQ SCH ×4 (08:00→21:40)
[2017-09-14] MEDS: OXcarbazepine 300 MG TAB PO SCH (08:40)
[2017-09-14] MEDS: SERTRALINE HCL 50 MG TAB PO SCH (08:40)
[2017-09-14] MEDS: risperiDONE 1 MG TAB PO SCH (08:40)
[2017-09-14] MEDS: METOPROLOL TARTRATE 50 MG TAB PO SCH ×3 (08:41→17:20)
[2017-09-14] MEDS: BUMETANIDE 1 MG TAB PO SCH (08:41)
[2017-09-14] MEDS: INSULIN DETEMIR 100 UNITS/ML VIAL SQ SCH (08:41)
[2017-09-14] MEDS: ACETAMINOPHEN 325 MG TAB PO PRN ×2 (09:37→15:31)
--- NOTE | 2017-09-14 10:32 | HHI.PR ---
Subjective Remarks in no acute distress. chest pain is better. no new complaints. Objective Vitals Vital Signs Date Time Temp Pulse Resp B/P (MAP) Pulse Ox O2 Delivery O2 Flow Rate FiO2 09/14/17 06:00 97.8 87 19 102/57 (72) 96 09/13/17 18:38 14 09/13/17 18:07 98.4 83 18 136/70 (92) 98 I/O 09/13/17 09/13/17 09/13/17 09/14/17 09/14/17 09/14/17 07:00 15:00 23:00 07:00 15:00 23:00 Intake Total 240 ml Balance 240 ml Intake Oral 240 ml # Voids 1 Result Diagram: 09/10/17 0620 Imaging Last Impressions Chest X-Ray 09/09/17 0124 Signed Impressions: Service Date/Time: Saturday, September 09, 2017 01:34 - CONCLUSION: 1. Cardiomegaly. Minimal basal atelectasis. No plain film findings of congestive heart failure. Colin Escalera MD Objective Remarks GENERAL: This is a well-nourished, well-developed patient, in no apparent distress. CARDIOVASCULAR: Regular rate and regular rhythm without murmurs, gallops, or rubs. RESPIRATORY: Clear to auscultation. Breath sounds equal bilaterally. No wheezes , rales, or rhonchi. GASTROINTESTINAL: Abdomen soft, non-tender, nondistended. Normal, active bowel sounds MUSCULOSKELETAL: Extremities without clubbing, cyanosis, or edema. NEURO: Alert & Oriented x4 to person, place, time, situation. Moves all ext x4 Medications and IVs Inpatient Medications Acetaminophen (Tylenol) 650 mg Q4H PRN PO Pain 1-5 or Temp >101F Last administered on 09/14/17at 09:37; Start 09/09/17 at 14:00 Al Hydrox/Mg Hydrox/Simethicone (Mag-Al Plus Susp Liq) 30 ml Q6H PRN PO DYSPEPSIA; Start 09/09/17 at 14:00 Atorvastatin Calcium (Lipitor) 10 mg HS PO Last administered on 09/13/17at 21:18 ; Start 09/11/17 at 21:00 Bumetanide (Bumetanide) 1 mg DAILY PO Last administered on 09/14/17at 08:41; Start 09/10/17 at 09:00 Dextrose (D50w (Vial) Inj) 50 ml UNSCH PRN IV PUSH HYPOGLYCEMIA-SEE COMMENTS; Start 09/10/17 at 13:30 Glucagon (Glucagon Inj) 1 mg UNSCH PRN OTHER HYPOGLYCEMIA-SEE COMMENTS; Start 09/10/17 at 13:30 Insulin Aspart (NovoLOG SUPPLEMENTAL SCALE) 1 ACHS SLIDING SCALE SQ Last administered on 09/14/17 08:00; Start 09/10/17 at 17:00 Insulin Detemir (Levemir Inj) 25 units DAILY SQ Last administered on 09/14/17 08:41; Start 09/11/17 at 09:00 Insulin Human Regular (NovoLIN R INJ) 3 units STAT ONCE SQ Last administered on 09/09/17at 02:30; Start 09/09/17 at 02:30; Stop 09/09/17 at 02:31; Status DC Magnesium Hydroxide (Milk Of Magnesia Liq) 30 ml DAILY PRN PO CONSTIPATION; Start 09/09/17 at 14:00 Metoprolol Tartrate (Lopressor) 50 mg TID PO Last administered on 09/14/17at 08: 41; Start 09/09/17 at 18:00 Miscellaneous (Pill Splitter) 1 ea UNSCH PRN OTHER SEE LABEL COMMENTS; Start at 14:15 Oxcarbazepine (Trileptal) 600 mg HS PO Last administered on 09/13/17 21:18; Start 09/09/17 at 21:00 Risperidone (risperDAL) 3 mg HS PO Last administered on 09/13/17at 21:18; Start 09/11/17 at 21:00 Sertraline HCl (Zoloft) 75 mg DAILY PO Last administered on 09/14/17at 08:40; Start 09/10/17 at 09:00 Trazodone HCl (Desyrel) 100 mg HS PO Last administered on 09/13/17 21:18; Start 09/09/17 at 21:00 A/P Problem List: (1) Schizoaffective disorder, depressive type ICD Code: F25.1 - Schizoaffective disorder, depressive type (2) Adjustment disorder with depressed mood ICD Code: F43.21 - Adjustment disorder with depressed mood (3) Hypertension ICD Code: I10 - Essential (primary) hypertension (4) Chest pain ICD Code: R07.9 - Chest pain, unspecified (5) COPD (chronic obstructive pulmonary disease) ICD Code: J44.9 - Chronic obstructive pulmonary disease, unspecified Assessment and Plan Psychotic disorder: - Management per psychiatry Chest pain: Probably psych related. Per review of record, the patient always complained of chest pain but always have negative cardiac workup. troponin negative and EKG with no acute ST-T changes. History of CHF: No exacerbation. Last 2-D echo shows low normal LVEF. - Continue Bumex COPD: stable, on home oxygen. Duoneb prn, continue Symbicort. HTN: stable. continue metoprolol. DM: Restarted Levemir. Sliding scale insulin. dyslipidemia-start on statin- f/u as outpatient. GI prophylaxis: Stool softener PRN constipation. DVT PPx: Lovenox Ramez Toscano MD Sep 14, 2017 10:31
[2017-09-14 12:46] VITALS: BP 93/53; PULSE 82
--- NOTE | 2017-09-14 16:11 | HHI.PYPN ---
Subjective Remarks Patient was seen and case discussed with nursing. Patient had one low blood pressure reading and we will get vitals every 6 hours. Nursing has been taking blood pressures before and holding antihypertensive as needed. Today, patient says the voices are "louder." She has a plan to contact and says that she may cut today. We removed her metallic bracelet from her hand. And a one-to-one will be ordered Mental Status Examination Appearance: Appropriate Consciousness: Alert Orientation: x4 Motor Activity: Other (wheelchair) Speech: Unremarkable Language: Adequate Fund of Knowledge: Adequate Attention and Concentration: Adequate Memory: Unremarkable (wheelchair-bound) Mood: Other ("depressed") Affect: Blunt Thought Process & Associations: Intact, Logical, Linear Thought Content: Hallucinations (to hurt herself) Hallucination Type: Auditory (command type to harm herself) Delusion Type: None Suicidal Ideation: Yes Suicidal Plan: Yes (to cut) Suicidal Intention: Yes Homicidal Ideation: No Homicidal Plan: No Homicidal Intention: No Insight: Fair Judgment: Adequate Results Labs Date/Time Source Procedure Growth Status 09/09/17 01:40 Nasal Aspirate Influenza Types A,B Antigen (YEHUDA) - Final NEGATIVE FOR FLU A AND B ANTIGEN.... Complete Vitals/IOs Vital Signs Date Time Temp Pulse Resp B/P (MAP) Pulse Ox O2 Delivery O2 Flow Rate FiO2 09/14/17 12:46 82 93/53 (66) 09/14/17 06:00 97.8 19 96 Assessment & Plan Problem List: (1) Schizoaffective disorder, depressive type ICD Codes: F25.1 - Schizoaffective disorder, depressive type Assessment & Plan One-to-one, vitals every 6 Justification for Cont. Inpt. Patient will decompensate in a less restrictive setting Jeremiah Taylor DO Sep 14, 2017 16:11
[2017-09-14 17:15] VITALS: BP 105/52; PULSE 84
[2017-09-14] MEDS: ATORVASTATIN 10 MG TAB PO SCH (21:39)
[2017-09-14] MEDS: traZODone HCL 100 MG TAB PO SCH (21:39)
[2017-09-14] MEDS: OXcarbazepine 600 MG TAB PO SCH (21:39)
[2017-09-14] MEDS: risperiDONE 3 MG TAB PO SCH (21:39)
[2017-09-15 06:15] VITALS: BP 129/59; PULSE 93; RESP 18; TEMP 98.1; O2SAT 98
[2017-09-15] MEDS: INSULIN ASPART SUPPLEMENTAL SCALE SQ SCH ×4 (07:59→21:04)
[2017-09-15] MEDS: OXcarbazepine 300 MG TAB PO SCH (08:27)
[2017-09-15] MEDS: risperiDONE 1 MG TAB PO SCH (08:27)
[2017-09-15] MEDS: METOPROLOL TARTRATE 50 MG TAB PO SCH ×2 (08:27→13:00)
[2017-09-15] MEDS: BUMETANIDE 1 MG TAB PO SCH (08:27)
[2017-09-15] MEDS: SERTRALINE HCL 50 MG TAB PO SCH (08:27)
[2017-09-15] MEDS: INSULIN DETEMIR 100 UNITS/ML VIAL SQ SCH ×2 (09:35→21:04)
--- NOTE | 2017-09-15 11:00 | PD.TTN ---
Patient Problems 1. Discharge planning 2. Medication compliance 3. Knowledge deficit 4. Lack of coping skills Progress Toward Goals Provider Present: Dr. Marvin Montelonog Provider Input: 09/15/17 patient transferred to 2500 , to be assessed if she has improved and medications have been adjusted then discharge anticipated tomorrow 09/12/17 patient is still in need for a med adjustment and then can return to her placement she is suggested to transfer to the 2600 unit as she appears to comfortable on the 4th floor , voices suicidal ideations when asked about her improvement and discharge planning Psychiatric Counselors Present: Jess Negrete LCSW Psych Therapist Input: 09/15/17 patient is on 2500 unit and continues to voice having ongoing suicidal ideations, she is in dayroom often and interacts with others and is appearing with same mood, somewhat flat but attending to her self care needs such as eating, drinking, watching TV and asking techs for her assistance when needed attending to her showers , reported to sleep at night 09/12/17 remians flat and limited in talking , reports she still has the voices telling her to hurt herself, not specific on a plan, when safety planning is discussed she states often " I don't know" when asked to come to nurse and disclose of her Group Spec/RT/OT/ARIAS Present: Laureano Rodríguez, OT Group Spec/RT/OT/ARIAS Input: 09/15/17 patient participates in the group activities, patient works 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
[2017-09-15] MEDS ORDERED: INSULIN DETEMIR 100 UNITS/ML VIAL SQ ONE (12:00)
[2017-09-15 13:13] VITALS: BP 100/55; PULSE 77; RESP 18
--- NOTE | 2017-09-15 14:11 | HHI.PYPN ---
Subjective Remarks The patient seen for follow-up, chart reviewed. Patient continues on one-to- one observation and as per nursing report patient continues to attend groups and not noted to be dysphoric. Patient was found wheelchair going to day room without recall cooperative. Patient states that her mood is "so-so" stating that her mood is same, reports sleeping and eating drinking well, continues reports feeling depressed along with suicidal ideations. Patient states that she continues to feel this way to being stressed out and when asked what her stressors are she states feeling depressed. She also continues endorse auditory hallucinations telling her to hurt herself. Review of Systems Except as stated in HPI: all other systems reviewed are Neg Mental Status Examination Appearance: Appropriate Consciousness: Alert Orientation: x4 Motor Activity: Other (wheelchair) Speech: Unremarkable Language: Adequate Fund of Knowledge: Adequate Attention and Concentration: Adequate Memory: Unremarkable (wheelchair-bound) Mood: Other ("so-so") Affect: Appropriate Thought Process & Associations: Intact, Logical, Linear Thought Content: Hallucinations (to hurt herself) Hallucination Type: Auditory (command type to harm herself) Delusion Type: None Suicidal Ideation: Yes Suicidal Plan: No Suicidal Intention: No Homicidal Ideation: No Homicidal Plan: No Homicidal Intention: No Insight: Fair Judgment: Adequate Results Labs Date/Time Source Procedure Growth Status 09/09/17 01:40 Nasal Aspirate Influenza Types A,B Antigen (YEHUDA) - Final NEGATIVE FOR FLU A AND B ANTIGEN.... Complete Vitals/IOs Vital Signs Date Time Temp Pulse Resp B/P (MAP) Pulse Ox O2 Delivery O2 Flow Rate FiO2 09/15/17 13:13 77 18 100/55 (70) 09/15/17 09:00 Nasal Cannula 2.00 09/15/17 06:15 98.1 98 Intake and Output 09/15/17 09/15/17 09/16/17 08:00 16:00 00:00 Intake Total 360 ml 960 ml Balance 360 ml 960 ml Assessment & Plan Problem List: (1) Schizoaffective disorder, depressive type ICD Codes: F25.1 - Schizoaffective disorder, depressive type Assessment & Plan Patient at this time continues to report feeling depressed along with command auditory hallucinations to kill herself suicide ideations. Patient upon her previous hospitalization continues to endorse these same symptoms despite modification in treatment. Patient noted to have a consistent behavior in regards to her mood and her endorsing suicidal ideations and depression. Patient continues to be noted to attend groups but is very social interacting with staff. Is likely the patient may also have secondary gain in being in the hospital that she has expressed in the past not being happy at her [facility]. We'll discontinue one-to-one observation. We'll continue to monitor mood and behavior. We'll increase risperidone 3 mg by mouth twice a day for psychosis. Continue recommendations as per primary medical team. Discharge planning in progress. Justification for Cont. Inpt. At risk for further decompensation at lower level of care Discharge Planning Patient to return back to the [facility]. Jah Montelongo MD Sep 15, 2017 14:11
--- NOTE | 2017-09-15 14:19 | HHI.PR ---
Subjective Remarks Follow-up visit bipolar disorder, COPD, CHF. Patient seen and examined today sitting in her wheelchair with O2 nasal cannula. Patient states that she is doing okay. Reports he has O2 nasal cannula from home and uses it all the time. Denies pain and discomfort. Denies SOB/ dyspnea. Denies chest pain, palpitations, headaches, dizziness. Denies fevers, chills, n/v/d. Objective Vitals Vital Signs Date Time Temp Pulse Resp B/P (MAP) Pulse Ox O2 Delivery O2 Flow Rate FiO2 09/15/17 13:13 77 18 100/55 (70) 09/15/17 09:00 Nasal Cannula 2.00 09/15/17 06:15 98.1 93 18 129/59 (82) 98 09/15/17 06:12 98 2.00 09/14/17 17:15 84 105/52 (69) I/O 09/14/17 09/14/17 09/14/17 09/15/17 09/15/17 09/15/17 07:00 15:00 23:00 07:00 15:00 23:00 Intake Total 1080 ml 360 ml 960 ml Balance 1080 ml 360 ml 960 ml Intake Oral 1080 ml 360 ml 960 ml # Voids 1 Imaging Last Impressions Chest X-Ray 09/09/17 0124 Signed Impressions: Service Date/Time: Saturday, September 09, 2017 01:34 - CONCLUSION: 1. Cardiomegaly. Minimal basal atelectasis. No plain film findings of congestive heart failure. Colin Escalera MD Objective Remarks GENERAL: This is an obese patient, in no apparent distress. SKIN: Warm and dry HEENT: Normocephalic. Pupils equal round and reactive. Nose without bleeding. Airway patent. NECK: Trachea midline. No JVD. Supple. CARDIOVASCULAR: Regular rate and rhythm without murmurs, gallops, or rubs. RESPIRATORY: Diminished bases. No wheezes, rales, or rhonchi. GASTROINTESTINAL: Abdomen soft, non-tender, obese. Bowel Sounds normoactive x4. MUSCULOSKELETAL: Extremities without clubbing, cyanosis, or edema. NEUROLOGICAL: Awake and alert. Oriented to person. Normal speech. A/P Problem List: (1) Schizoaffective disorder, depressive type ICD Code: F25.1 - Schizoaffective disorder, depressive type (2) Adjustment disorder with depressed mood ICD Code: F43.21 - Adjustment disorder with depressed mood (3) Hypertension ICD Code: I10 - Essential (primary) hypertension (4) Chest pain ICD Code: R07.9 - Chest pain, unspecified (5) COPD (chronic obstructive pulmonary disease) ICD Code: J44.9 - Chronic obstructive pulmonary disease, unspecified Assessment and Plan Patient is a 42-year-old female with a medical history significant for bipolar disorder, COPD, CHF presented to the hospital from [facility] because of auditory hallucinations. Psychotic disorder: - Management per psychiatry Chest pain: Probably psych related. Per review of record, the patient always complained of chest pain but always have negative cardiac workup. - troponin <02. - EKG reviewed. No new acute changes. - Can use Tylenol as needed for pain. History of CHF: No exacerbation. - Last 2-D echo shows low normal LVEF. Continue strict I's and O's. - Continue Bumex 1 mg daily COPD: stable, on home oxygen. 3 L - Duoneb prn, continue Symbicort. HTN: - Slightly Low blood pressures, <100 - Decrease dose of metoprolol 25mg TID, place parameters. We will add lisinopril 5mg daily, patient has DM and for kidney protection - Monitor BP trend. Continue to adjust medication as necessary. HLD - ASCVD Risk 2.3% - Commended for moderate statin therapy - Atorvastatin 20mg daily DM: - Increase Levemir 12 units q12 hours. - Sliding scale insulin. - Monitor Accu-Cheks GI prophylaxis: Stool softener PRN constipation DVT prop lovenox Vivian Nguyen Sep 15, 2017 14:19
[2017-09-15] MEDS: ENOXAPARIN SODIUM 40 MG/0.4 ML SYRINGE SQ SCH (16:00)
[2017-09-15] MEDS: METOPROLOL TARTRATE 25 MG TAB PO SCH (18:00)
[2017-09-15 18:02] VITALS: BP 139/79; PULSE 92; RESP 17; TEMP 98.8
[2017-09-15] MEDS ORDERED: ATORVASTATIN 40 MG TAB PO SCH (21:00)
[2017-09-15] MEDS: BUDESONIDE-FORMOTEROL 80/4.5 MCG INHALER INH SCH (21:00)
[2017-09-15] MEDS: risperiDONE 3 MG TAB PO SCH (21:02)
[2017-09-15] MEDS: traZODone HCL 100 MG TAB PO SCH (21:02)
[2017-09-15] MEDS: ATORVASTATIN 20 MG TAB PO SCH (21:02)
[2017-09-15] MEDS: OXcarbazepine 600 MG TAB PO SCH (22:08)
[2017-09-15] MEDS: ACETAMINOPHEN 325 MG TAB PO PRN (22:08)
[2017-09-16 05:52] VITALS: BP 128/66; PULSE 81; RESP 16; TEMP 97.1; O2SAT 98
[2017-09-16] MEDS: INSULIN ASPART SUPPLEMENTAL SCALE SQ SCH ×4 (08:00→21:11)
[2017-09-16] MEDS: BUMETANIDE 1 MG TAB PO SCH (08:22)
[2017-09-16] MEDS: risperiDONE 3 MG TAB PO SCH ×2 (08:22→21:12)
[2017-09-16] MEDS: OXcarbazepine 300 MG TAB PO SCH (08:22)
[2017-09-16] MEDS: LISINOPRIL 5 MG TAB PO SCH (08:23)
[2017-09-16] MEDS: METOPROLOL TARTRATE 25 MG TAB PO SCH ×3 (08:23→16:21)
[2017-09-16] MEDS: SERTRALINE HCL 50 MG TAB PO SCH (08:23)
[2017-09-16] MEDS: INSULIN DETEMIR 100 UNITS/ML VIAL SQ SCH ×2 (08:23→21:12)
[2017-09-16] MEDS: BUDESONIDE-FORMOTEROL 80/4.5 MCG INHALER INH SCH ×2 (09:00→21:09)
[2017-09-16] MEDS: ACETAMINOPHEN 325 MG TAB PO PRN (12:07)
--- NOTE | 2017-09-16 13:28 | HHI.PYPN ---
Subjective Remarks Patient seen in [place] with nurse practitioner Jennifer, medical student Jake, and nurse Ashlie. Chart reviewed. Patient compliant medication patient in wheelchair with nasal oxygen. Patient calm though shows some moderate psychomotor retardation, there is a decreased range intensity of her affect. Her motor movements in the wheelchair are quite slow. She still verifies depression with vague suicidal ideation, she is somewhat ambiguous about voices. She states she does not feel a lot better today than when she was first admitted Review of Systems Except as stated in HPI: all other systems reviewed are Neg Mental Status Examination Appearance: Appropriate Consciousness: Alert Orientation: x4 Motor Activity: Other (wheelchair) Speech: Unremarkable Language: Adequate Fund of Knowledge: Adequate Attention and Concentration: Adequate Memory: Unremarkable (wheelchair-bound) Mood: Other ("so-so") Affect: Appropriate Thought Process & Associations: Intact, Logical, Linear Thought Content: Hallucinations (to hurt herself) Hallucination Type: Auditory (command type to harm herself) Delusion Type: None Suicidal Ideation: Yes Suicidal Plan: No Suicidal Intention: No Homicidal Ideation: No Homicidal Plan: No Homicidal Intention: No Insight: Fair Judgment: Adequate Results Labs Date/Time Source Procedure Growth Status 09/09/17 01:40 Nasal Aspirate Influenza Types A,B Antigen (YEHUDA) - Final NEGATIVE FOR FLU A AND B ANTIGEN.... Complete Vitals/IOs Vital Signs Date Time Temp Pulse Resp B/P (MAP) Pulse Ox O2 Delivery O2 Flow Rate FiO2 09/16/17 05:52 97.1 81 16 128/66 (86) 98 09/16/17 04:52 Nasal Cannula 2.00 Assessment & Plan Problem List: (1) Schizoaffective disorder, depressive type ICD Codes: F25.1 - Schizoaffective disorder, depressive type Assessment & Plan Estimated LOS: days at this time patient remains depressed with vague psychotic features, she is compliant medications. Justification for Cont. Inpt. At the present time patient decompensate replaced a lower level of care Discharge Planning Unknown at this time Hesham Harris MD Sep 16, 2017 13:27
[2017-09-16 14:05] VITALS: O2SAT 99
[2017-09-16] MEDS: ENOXAPARIN SODIUM 40 MG/0.4 ML SYRINGE SQ SCH (16:00)
[2017-09-16 17:26] VITALS: O2SAT 99
[2017-09-16 18:00] VITALS: BP 148/68; PULSE 89; RESP 18; TEMP 97.8; O2SAT 98
[2017-09-16] MEDS: traZODone HCL 100 MG TAB PO SCH (21:12)
[2017-09-16] MEDS: OXcarbazepine 600 MG TAB PO SCH (21:12)
[2017-09-16] MEDS: ATORVASTATIN 20 MG TAB PO SCH (21:12)
[2017-09-17 06:00] VITALS: BP 120/68; PULSE 90; RESP 18; TEMP 97.6; O2SAT 98
[2017-09-17] MEDS: INSULIN ASPART SUPPLEMENTAL SCALE SQ SCH ×2 (08:00→11:14)
[2017-09-17] MEDS: OXcarbazepine 300 MG TAB PO SCH (08:34)
[2017-09-17] MEDS: BUDESONIDE-FORMOTEROL 80/4.5 MCG INHALER INH SCH (08:34)
[2017-09-17] MEDS: SERTRALINE HCL 50 MG TAB PO SCH (08:35)
[2017-09-17] MEDS: LISINOPRIL 5 MG TAB PO SCH (08:35)
[2017-09-17] MEDS: risperiDONE 3 MG TAB PO SCH (08:35)
[2017-09-17] MEDS: INSULIN DETEMIR 100 UNITS/ML VIAL SQ SCH (08:35)
[2017-09-17] MEDS: METOPROLOL TARTRATE 25 MG TAB PO SCH ×2 (08:35→15:33)
[2017-09-17] MEDS: BUMETANIDE 1 MG TAB PO SCH (08:36)
[2017-09-17] MEDS ORDERED: BUME1TAB PO (10:23)
[2017-09-17] MEDS ORDERED: ZOLO50TA PO (10:23)
[2017-09-17] MEDS ORDERED: ATOR20TA15 PO (10:23)
[2017-09-17] MEDS ORDERED: LISI-519 PO (10:23)
[2017-09-17] MEDS ORDERED: OXCA600T PO (10:23)
[2017-09-17] MEDS ORDERED: RISP3 PO (10:23)
[2017-09-17] MEDS ORDERED: TRAZ100T10 PO (10:23)
[2017-09-17] MEDS ORDERED: METO25TA3 PO (10:23)
[2017-09-17] MEDS ORDERED: OXCA300T PO (10:23)
[2017-09-17] MEDS ORDERED: SYMB80AE INH (10:23)
[2017-09-17] MEDS ORDERED: LEVEMIR SQ (10:23)
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
[2017-09-17] MEDS: ACETAMINOPHEN 325 MG TAB PO PRN (10:39)
--- NOTE | 2017-09-17 15:59 | PD.TTN ---
Patient Problems 1. Discharge planning 2. Medication compliance 3. Knowledge deficit 4. Lack of coping skills Progress Toward Goals Provider Present: Dr. Marvin Montelongo Provider Input: 09/17/17 once seen today and improved discharge back to her placement 09/15/17 patient transferred to 2500 , to be assessed if she has improved and medications have been adjusted then discharge anticipated tomorrow 09/12/17 patient is still in need for a med adjustment and then can return to her placement she is suggested to transfer to the 2600 unit as she appears to comfortable on the 4th floor , voices suicidal ideations when asked about her improvement and discharge planning Psychiatric Counselors Present: Jess Negrete LCSW Psych Therapist Input: 09/17/17 comes to groups and appears great interacting and engaging and wanting to talk with others, she laughs but still states she is not too well , discussed outpatient follow up which she has therapy once a week and goes to all groups at placement 09/15/17 patient is on 2500 unit and continues to voice having ongoing suicidal ideations, she is in dayroom often and interacts with others and is appearing with same mood, somewhat flat but attending to her self care needs such as eating, drinking, watching TV and asking techs for her assistance when needed attending to her showers , reported to sleep at night 09/12/17 remians flat and limited in talking , reports she still has the voices telling her to hurt herself, not specific on a plan, when safety planning is discussed she states often " I don't know" when asked to come to nurse and disclose of her Group Spec/RT/OT/ARIAS Present: Laureano Rodríguez, OT Group Spec/RT/OT/ARIAS Input: 09/17/17 attends all groups and self initiates social interactions 09/15/17 patient participates in the group activities, patient works indepdently when engaged in the project 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
== END 2017-09-17 16:05 | DRG 885 ==
LOC: NEPD 22:28 → NEDA 09-09 13:50 → H4EA 09-09 15:25 → H260 09-12 17:55 → H250 09-13 21:43 → H260 09-15 15:54
PROVIDERS: ADMIT Student in an Organized Health Care Education/Training Program; ATTEND Student in an Organized Health Care Education/Training Program
DX: F25.1 Schizoaffective disorder, depressive type (principal); I50.9 Heart failure, unspecified; I11.0 Hypertensive heart disease with heart failure; R45.851 Suicidal ideations; Z68.43 Body mass index [BMI] 50.0-59.9, adult; Z99.81 Dependence on supplemental oxygen; J44.9 Chronic obstructive pulmonary disease, unspecified; E11.9 Type 2 diabetes mellitus without complications; E66.01 Morbid (severe) obesity due to excess calories; G89.29 Other chronic pain; E78.5 Hyperlipidemia, unspecified; M54.9 Dorsalgia, unspecified; F43.21 Adjustment disorder with depressed mood; R07.9 Chest pain, unspecified; Z79.899 Other long term (current) drug therapy; Z79.4 Long term (current) use of insulin; Z91.5 Personal history of self-harm; Z91.410 Personal history of adult physical and sexual abuse; Z81.8 Family history of other mental and behavioral disorders; Z99.3 Dependence on wheelchair
CPT/HCPCS: 71045; 80048; 80053; 80061; 80307; 81001; 82948; 83036; 84443; 84484; 84703; 85025; 87804; 93005; 96372; J1650; J1815